=== PATIENT | female | born 1955 | race Caucasian/White ===

== ENCOUNTER 2018-09-11 11:06 | Emergency (ER) | payer BC ==
--- OUTSIDE RECORDS SUMMARY | 2018-09-11 11:08 | XMS REPORT ---
:1955 Author Organization eClinicalWorks Care Team Providers Name Role Phone Aleksey Storey Provider Role Unavailable Allergies No Known Allergies Problems Problem Type Condition Code Onset Dates Condition Status Problem Acquired hypothyroidism E03.9 Active Problem Other intermediate card tender (current) drug Z79.899 Active therapy Problem Chronic UTI N39.0 Active Problem Stress incontinence of urine N39.3 Active Problem Hypertension, unspecified type I10 Active Problem GERD without esophagitis K21.9 Active Problem Incontinence of urine in female R32 Active Medications Medication Code Code Instructions Start End Status Dosage System Date Date BuPROPion HCl [facility] [address]-25 200 MG Orally Active 1 tab Daily Pantoprazole [facility] 42930088768 40 MG Orally Active 1 tablet Sodium Once a day Levothyroxine [facility] 19667950491 75 MCG Orally Active 1 tablet Sodium Once a day on an empty stomach in the morning Amlodipine [facility] 02925135806 5 MG Orally Active 1 tablet Besylate Once a day Results No Known Results Summary Purpose eClinicalWorks Submission
--- OUTSIDE RECORDS SUMMARY | 2018-09-11 11:08 | XMS REPORT ---
:1955 Author Organization eClinicalWorks Care Team Providers Name Role Phone Alexia Oreilly Provider Role Unavailable Allergies, Adverse Reactions, Alerts Substance Reaction Event Type penicillin Info Not Available Drug Allergy penicillin Info Not Available Drug Allergy Problems Problem Type Condition Code Onset Dates Condition Status Assessment Urinary tract infection, site not N39.0 Active specified Assessment Recurrent UTI N39.0 Active Problem Acquired hypothyroidism E03.9 Active Problem Other senior living (current) drug Z79.899 Active therapy Problem Chronic UTI N39.0 Active Problem Stress incontinence of urine N39.3 Active Problem Hypertension, unspecified type I10 Active Problem GERD without esophagitis K21.9 Active Problem Incontinence of urine in female R32 Active Medications Medication Code Code Instructions Start End Status Dosage System Date Date Estrace [facility] 62034232698 0.1 MG/GM January 07, Active as Vaginal twice 2018 directed weekly Pantoprazole [facility] 21279583010 40 MG Orally Active 1 tablet Sodium Once a day BuPROPion HCl [facility] [address]-84 200 MG Orally Active not defined Valsartan-Hydroch [facility] 45164559444 320-12.5 MG Active 1 tablet lorothiazide Orally Once a day Nitrofurantoin [facility] 06470689138 100 mg Orally January Active 1 capsule Macrocrystal Once a day , with food 2017 2017 or milk Melatonin [facility] 11627806067 5 MG Orally Active 1 capsule Once a day at bedtime as needed with food Levothyroxine [facility] 41750628160 75 MCG Orally Active 1 tablet Sodium Once a day on an empty stomach in the morning Oxybutynin [facility] 43806308078 5 MG Orally Active 1 tablet Chloride Twice a day Amlodipine [facility] 49921773525 5 MG Orally Active 1 tablet Besylate Once a day Results Name Result Date Reference Range Unit Abnormality Flag URINALYSIS AUTO W/O SCOPE (51049) ----IVETT 1+ [id number] ----NIT neg [id number] ----PROTEIN neg [id number] ----pH 7.0 [id number] ----GLUCOSE neg [id number] ----KETONES neg [id number] ----SPECIFIC GRAVITY 1.015 [id number] ----BLO neg [id number] Summary Purpose eClinicalWorks Submission
--- OUTSIDE RECORDS SUMMARY | 2018-09-11 11:08 | XMS REPORT ---
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 Active therapy Problem Chronic UTI N39.0 Active Problem Stress incontinence of urine N39.3 Active Problem Hypertension, unspecified type I10 Active Problem GERD without esophagitis K21.9 Active Problem Incontinence of urine in female R32 Active Medications Medication Code Code Instructions Start End Status Dosage System Date Date Oxybutynin [facility] 83742193664 5 MG Orally Active 1 tablet Chloride Twice a day Melatonin [facility] 15795229896 5 MG Orally Active 1 capsule Once a day at bedtime as needed with food BuPROPion HCl [facility] [address]-98 200 MG Orally Active 1 tab Daily Amlodipine ND 17582242976 5 MG Orally Active 1 tablet Besylate Once a day Estrace ND 33039515247 0.1 MG/GM January 07, Active as Vaginal twice 2018 directed weekly Valsartan-Hydroch [facility] 62290647098 320-12.5 MG Mar Active 1 tablet lorothiazide Orally Once a , 2017 Levothyroxine [facility] 24990733042 75 MCG Orally Active 1 tablet Sodium Once a day on an empty stomach in the morning Nitrofurantoin [facility] 24118664065 100 mg Orally January Active 1 capsule Macrocrystal Once a day , , with food 2017 2017 or milk Pantoprazole ND 66303247156 40 MG Orally Active 1 tablet Sodium Once a day Losartan ND 06944335050 100-12.5 MG Apr 28, Active 1 tablet Potassium-HCTZ Orally Once a 2018 day Results No Known Results Summary Purpose eClinicalWorks Submission
--- OUTSIDE RECORDS SUMMARY | 2018-09-11 11:08 | XMS REPORT ---
:1955 Author Organization eClinicalWorks Care Team Providers Name Role Phone Aleksey Storey Provider Role Unavailable Allergies No Known Allergies Problems Problem Type Condition Code Onset Dates Condition Status Problem Acquired hypothyroidism E03.9 Active Problem Other half-way (current) drug Z79.899 Active therapy Problem Chronic UTI N39.0 Active Problem Stress incontinence of urine N39.3 Active Problem Hypertension, unspecified type I10 Active Problem GERD without esophagitis K21.9 Active Problem Incontinence of urine in female R32 Active Medications Medication Code Code Instructions Start End Date Status Dosage System Date Valsartan-Hydr [facility] 07861415290 320-12.5 MG Active 1 tablet ochlorothiazid Orally Once a e day Results No Known Results Summary Purpose eClinicalWorks Submission
--- OUTSIDE RECORDS SUMMARY | 2018-09-11 11:08 | XMS REPORT ---
:1955 Author Organization eClinicalWorks Care Team Providers Name Role Phone Alexia Oreilly Provider Role Unavailable Allergies, Adverse Reactions, Alerts Substance Reaction Event Type penicillin Info Not Available Drug Allergy penicillin Info Not Available Drug Allergy Problems Problem Type Condition Code Onset Dates Condition Status Assessment Recurrent UTI N39.0 Active Assessment Urinary tract infection, site not N39.0 Active specified Problem Acquired hypothyroidism E03.9 Active Problem Other [facility]pc (current) drug Z79.899 Active therapy Problem Chronic UTI N39.0 Active Problem Stress incontinence of urine N39.3 Active Problem Hypertension, unspecified type I10 Active Problem GERD without esophagitis K21.9 Active Problem Incontinence of urine in female R32 Active Medications Medication Code Code Instructions Start End Status Dosage System Date Date Levothyroxine [facility] 58025434607 75 MCG Orally Active 1 tablet Sodium Once a day on an empty stomach in the morning Amlodipine ND 97981617784 5 MG Orally Active 1 tablet Besylate Once a day Losartan [facility] 39856148815 100-12.5 MG Apr 28, Active 1 tablet Potassium-HCTZ Orally Once a 2018 day Estrace ND 91002899399 0.1 MG/GM January 07, Active as Vaginal twice 2018 directed weekly Melatonin [facility] 61118923175 5 MG Orally Active 1 capsule Once a day at bedtime as needed with food Pantoprazole [facility] 93530505128 40 MG Orally Active 1 tablet Sodium Once a day BuPROPion HCl [facility] [address]-84 200 MG Orally Active 1 tab Daily Nitrofurantoin ND 39937567708 100 mg Orally Active 1 capsule Macrocrystal Once a day with food or milk Oxybutynin ND 97724351931 5 MG Orally Active 1 tablet Chloride Twice a day Results Name Result Date Reference Range Unit Abnormality Flag URINALYSIS AUTO W/O SCOPE (69090) ----NIT neg [id number] ----URO 0.2 20180506 ----PROTEIN neg [id number] ----pH 6.5 20180506 ----BLO neg [id number] ----GLUCOSE neg [id number] ----IVETT 1+ [id number] ----BILIRUBIN neg [id number] ----KETONES tr [id number] ----SPECIFIC GRAVITY 1.020 [id number] Summary Purpose eClinicalWorks Submission
--- OUTSIDE RECORDS SUMMARY | 2018-09-11 11:09 | XMS REPORT ---
[...] Problem Acquired hypothyroidism E03.9 Active Problem Other [facility] (current) drug Z79.899 Active therapy Problem Chronic UTI N39.0 Active Problem Stress incontinence of urine N39.3 Active Problem Hypertension, unspecified type I10 Active Problem GERD without esophagitis K21.9 Active Problem Incontinence of urine in female R32 Active Medications Medication Code Code Instructions Start End Status Dosage System Date Date Losartan [facility] 86365083303 100-12.5 MG Active 1 tablet Potassium-HCTZ Orally Once a day Melatonin [facility] 80962122248 5 MG Orally Active 1 capsule Once a day at bedtime as needed with food Estrace [facility] 56013145828 0.1 MG/GM January 07, Active as Vaginal twice 2018 directed weekly Amlodipine [facility] 74022205334 5 MG Orally Active 1 tablet Besylate Once a day Nitrofurantoin [facility] 23552715132 100 mg Orally Active 1 capsule Macrocrystal Once a day with food or milk BuPROPion HCl [facility] [address]-38 200 MG Orally Active 1 tab Daily Pantoprazole [facility] 69487627963 40 MG Orally Active 1 tablet Sodium Once a day Levothyroxine [facility] 27184184187 75 MCG Orally Active 1 tablet Sodium Once a day on an empty stomach in the morning Oxybutynin [facility] 10296066828 5 MG Orally Active 1 tablet Chloride Twice a day Results No Known Results Summary Purpose eClinicalWorks Submission
--- OUTSIDE RECORDS SUMMARY | 2018-09-11 11:09 | XMS REPORT ---
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 Active therapy Problem Acquired hypothyroidism E03.9 Active Problem Other group home (current) drug Z79.899 Active therapy Problem Chronic UTI N39.0 Active Problem Stress incontinence of urine N39.3 Active Problem Hypertension, unspecified type I10 Active Problem GERD without esophagitis K21.9 Active Problem Incontinence of urine in female R32 Active Medications Medication Code Code Instructions Start End Status Dosage System Date Date Melatonin [facility] 67639792710 5 MG Orally Active 1 capsule Once a day at bedtime as needed with food Amlodipine ND 94191780652 5 MG Orally Active 1 tablet Besylate Once a day Pantoprazole [facility] 41475390148 40 MG Orally Active 1 tablet Sodium Once a day Oxybutynin [facility] 23013124292 5 MG Orally Active 1 tablet Chloride Twice a day Estrace ND 52821802689 0.1 MG/GM January 07, Active as Vaginal twice 2018 directed weekly Losartan [facility] 92459329458 100-12.5 MG Apr 28, Active 1 tablet Potassium-HCTZ Orally Once a 2018 day Nitrofurantoin [facility] 45008345800 100 mg Orally Active 1 capsule Macrocrystal Once a day with food or milk BuPROPion HCl [facility] [address]-74 200 MG Orally Active 1 tab Daily Levothyroxine ND 98672502132 75 MCG Orally Active 1 tablet Sodium Once a day on an empty stomach in the morning Results No Known Results Summary Purpose eClinicalWorks Submission
--- NOTE | 2018-09-11 12:15 | RAD REPORT ---
EXAM DESCRIPTION: US - Abdomen Exam Limited - 09/11/2018 12:01 pm CLINICAL HISTORY: ABD PAIN COMPARISON: ABDOMINAL EXAM LIMITED dated 01/25/2015 FINDINGS: The gallbladder demonstrates no gallstones. No pericholecystic fluid or gallbladder wall t hickening. The common bile duct is mildly prominent measuring 8 mm. The liver demonstrates focal round mass measuring 6.7 x 5.1 cm in the right lobe. Grossly, this appea rs similar in size to the comparative study. However, further assessment of this lesion with MR liver protocol would be recommended on a nonemergent basis. IMPRESSION: Negative gallbladder findings. Circumscribed echogenic right lobe liver mass shows little change grossly since 2014 comparative stud y.
[2018-09-11 13:21] LABS: Absolute Monocytes 0.7 K/uL (0.1-1.3); Absolute Neutrophil 5.5 K/uL (1.8-8.0); Basophils % 1.4 % (0-1.3); Eosinophils % 3.2 % (0-4.4); Hematocrit 38.8 % (36.0-45.0); Lymphocytes % 23.2 % (15.3-44.8); Monocytes % 8.1 % (3.3-12.3); RBC Red Blood Cell Count 4.61 M/uL (3.86-4.86)
[2018-09-11 13:37] LABS: Albumin 4.4 g/dL (3.4-5.0); Bilirubin Direct 0.1 mg/dL (0-0.2); Bilirubin Total 0.5 mg/dL (0.2-1.0); Potassium 3.6 mmol/L (3.5-5.1); Protein, Total 7.9 g/dL (6.4-8.2)
[2018-09-11] MEDS ORDERED: KETOROLAC 30 MG/ML INJ ONE (14:03)
--- NOTE | 2018-09-11 14:18 | EDPHYS ---
Physician Documentation [facility] Name: Dary Michaud Age: 63 yrs Sex: Female : 1955 Arrival Date: 09/11/2018 Time: 11:10 Bed 18 Private MD: Aleksey Storey ED Physician Juvenal Hough HPI: 09/11 14:10 This 63 yrs old Female presents to ER via Ambulatory with complaints of Abd kb Pain > 50 y/o, Nausea. 14:10 The patient presents with abdominal pain in the epigastric area, in the right upper kb quadrant. 14:15 Onset: The symptoms/episode began/occurred a few weeks ago. The symptoms do not kb radiate. Associated signs and symptoms: Pertinent positives: nausea and vomiting. The symptoms are described as achy. Modifying factors: The symptoms are alleviated by nothing, the symptoms are aggravated by nothing. Severity of pain: At its worst the pain was mild moderate in the emergency department the pain is unchanged. The patient has not experienced similar symptoms in the past. The patient has not recently seen a physician. Historical: - Allergies: 11:32 PENICILLINS; aj1 - Home Meds: 11:32 losartan-hydrochlorothiazide 100-12.5 mg oral tab once daily [Active]; levothyroxine aj1 oral [Active]; amlodipine 5 mg tab 1 tab once daily [Active]; pantoprazole oral oral [Active]; - PMHx: 11:32 Hypertension; Hypothyroidism; GERD; aj1 - Immunization history:: Flu vaccine is up to date. - Social history:: Smoking status: Patient/guardian denies using tobacco. - Ebola Screening: : Patient denies travel to an Ebola-affected area in the 21 days before illness onset. ROS: 14:09 Constitutional: Negative for fever, chills, and weight loss, Cardiovascular: Negative kb for chest pain, palpitations, and edema, Respiratory: Negative for shortness of breath, cough, wheezing, and pleuritic chest pain, Back: Negative for injury and pain, MS/Extremity: Negative for injury and deformity, Skin: Negative for injury, rash, and discoloration, Neuro: Negative for headache, weakness, numbness, tingling, and seizure. 14:09 Abdomen/GI: Positive for abdominal pain, nausea and vomiting, Negative for diarrhea, constipation, abdominal cramps, abdominal distension, anorexia. Exam: 14:14 Constitutional: This is a well developed, well nourished patient who is awake, alert, kb and in no acute distress. Head/Face: Normocephalic, atraumatic. ENT: Nares patent. No nasal discharge, no septal abnormalities noted. Tympanic membranes are normal and external auditory canals are clear. Oropharynx with no redness, swelling, or masses, exudates, or evidence of obstruction, uvula midline. Mucous membranes moist. Neck: Trachea midline, no thyromegaly or masses palpated, and no cervical lymphadenopathy. Supple, full range of motion without nuchal rigidity, or vertebral point tenderness. No Meningismus. Chest/axilla: Normal chest wall appearance and motion. Nontender with no deformity. No lesions are appreciated. Cardiovascular: Regular rate and rhythm with a normal S1 and S2. No gallops, murmurs, or rubs. Normal PMI, no JVD. No pulse deficits. Respiratory: Lungs have equal breath sounds bilaterally, clear to auscultation and percussion. No rales, rhonchi or wheezes noted. No increased work of breathing, no retractions or nasal flaring. Skin: Warm, dry with normal turgor. Normal color with no rashes, no lesions, and no evidence of cellulitis. MS/ Extremity: Pulses equal, no cyanosis. Neurovascular intact. Full, normal range of motion. Neuro: Awake and alert, GCS 15, oriented to person, place, time, and situation. Cranial nerves II-XII grossly intact. Motor strength 5/5 in all extremities. Sensory grossly intact. Cerebellar exam normal. Normal gait. 14:14 Abdomen/GI: Inspection: abdomen appears normal, Bowel sounds: normal, in all quadrants, Palpation: soft, in all quadrants, moderate abdominal tenderness, in the right upper quadrant. Vital Signs: 11:32 BP 152 / 96; Pulse 71; Resp 18; Temp 98.0; Pulse Ox 99% on R/A; Weight 75.75 kg (R); aj1 Height 5 ft. 10 in. (177.80 cm) (R); Pain 10/10; 13:35 BP 161 / 94; Pulse 61; Resp 18; Pulse Ox 99% on R/A; Pain 9/10; em 14:30 BP 166 / 91; Pulse 64; Resp 16; Pulse Ox 99% on R/A; Pain 3/10; em 11:32 Body Mass Index 23.96 (75.75 kg, 177.80 cm) aj1 MDM: 12:29 Patient medically screened. kb 14:10 Data reviewed: vital signs, nurses notes. Data interpreted: Pulse oximetry: on room air kb is 99 %. Interpretation: normal. 14:14 Counseling: I had a detailed discussion with the patient and/or guardian regarding: the kb historical points, exam findings, and any diagnostic results supporting the discharge/admit diagnosis, lab results, radiology results, the need for outpatient follow up, a manager mass, to return to the emergency department if symptoms worsen or persist or if there are any questions or concerns that arise at home. 09/11 12:33 Order name: Basic Metabolic Panel; Complete Time: 13:48 kb 09/11 12:33 Order name: CBC with Diff; Complete Time: 13:26 kb 09/11 12:33 Order name: Hepatic Function; Complete Time: 13:48 kb 09/11 12:33 Order name: Lipase; Complete Time: 13:48 kb 09/11 12:33 Order name: Urine Microscopic Only; Complete Time: 15:17 kb 09/11 13:53 Order name: Urine Dipstick--Ancillary (enter results) bd 09/11 11:39 Order name: US Abdomen Limited; Complete Time: 12:18 kb 09/11 12:33 Order name: IV Saline Lock; Complete Time: 13:16 kb 09/11 12:33 Order name: Labs collected and sent; Complete Time: 13:16 kb 09/11 12:33 Order name: Urine Dipstick-Ancillary (obtain specimen); Complete Time: 13:52 kb Administered Medications: 14:00 Drug: TORadol 30 mg Route: IVP; Site: left antecubital; ss 14:25 Follow up: Response: No adverse reaction; Pain is decreased em 14:28 Drug: GI Cocktail without - (Maalox Suspension 30 ml, Lidocaine Liquid 2 % 15 em ml) Route: PO; 14:34 Follow up: Response: Medication administered at discharge. em Disposition: 09/11/18 14:17 Discharged to Home. Impression: Upper abdominal pain, unspecified. - Condition is Stable. - Discharge Instructions: Gastroesophageal Reflux Disease, Adult, Abdominal Pain, Adult, [id number]. - Prescriptions for Bentyl 20 mg Oral Tablet - take 1 tablet by ORAL route every 6 hours As needed; 20 tablet. Zofran 4 mg Oral Tablet - take 1 tablet by ORAL route every 6 hours As needed; 20 tablet. - Medication Reconciliation Form, Thank You Letter, Antibiotic Education, Prescription Opioid Use form. - Follow up: Emergency Department; When: As needed; Reason: Worsening of condition. Follow up: Private Physician; When: 2 - 3 days; Reason: Recheck today's complaints, Continuance of care, Re-evaluation by your physician. Addendum: 09/13/2018 10:25 Co-signature as Attending Physician, Juvenal Hough MD. g s Signatures: Dispatcher [employer] EDMS Kimberly Pennington, BOXING INSTRUCTOR-C BOXING INSTRUCTOR-Ckb Mary Carmen Skinner, RN RN aj1 Get Portillo, PRESS SHOP SUPERVISOR PRESS SHOP SUPERVISOR em Estee Gilmore RN RN ss Starr, Gregory, MD MD Corrections: (The following items were deleted from the chart) 09/11 14:55 14:17 09/11/2018 14:17 Discharged to Home. Impression: Upper abdominal pain, em unspecified. Condition is Stable. Forms are Medication Reconciliation Form, Thank You Letter, Antibiotic Education, Prescription Opioid Use. Follow up: Emergency Department; When: As needed; Reason: Worsening of condition. Follow up: Private Physician; When: 2 - 3 days; Reason: Recheck today's complaints, Continuance of care, Re-evaluation by your physician. kb
--- NOTE | 2018-09-11 14:18 | ER ---
Nurse's Notes [facility] Name: Dayr Michaud Age: 63 yrs Sex: Female : 1955 Arrival Date: 09/11/2018 Time: 11:10 Bed 18 Private MD: Aleksey Storey Diagnosis: Upper abdominal pain, unspecified Presentation: 09/11 11:29 Presenting complaint: Patient states: "I've been having this pain on and off, now its aj1 gotten worse and I'm feeling nauseated" Reports epigastric pain that becomes severe after eating. Reports nausea and diarrhea. Denies vomiting. Transition of care: patient was not received from another setting of care. Onset of symptoms was August 30, 2018. Risk Assessment: Do you want to hurt yourself or someone else? Patient reports no desire to harm self or others. Initial Sepsis Screen: Does the patient meet any 2 criteria? No. Patient's initial sepsis screen is negative. Does the patient have a suspected source of infection? Yes: Acute abdominal pain. Care prior to arrival: None. 11:29 Method Of Arrival: Ambulatory aj1 11:29 Acuity: BLANCA 3 aj1 Triage Assessment: 11:32 General: Appears in no apparent distress. uncomfortable, Behavior is calm, cooperative, aj1 appropriate for age. Pain: Complains of pain in epigastric area Pain currently is 10 out of 10 on a pain scale. Neuro: Level of Consciousness is awake, alert, obeys commands. Cardiovascular: Patient's skin is warm and dry. Respiratory: Airway is patent Respiratory effort is even, unlabored, Respiratory pattern is regular, symmetrical. GI: Reports upper abdominal pain, diarrhea, nausea, Patient currently denies vomiting. Historical: - Allergies: 11:32 PENICILLINS; aj1 - Home Meds: 11:32 losartan-hydrochlorothiazide 100-12.5 mg oral tab once daily [Active]; levothyroxine aj1 oral [Active]; amlodipine 5 mg tab 1 tab once daily [Active]; pantoprazole oral oral [Active]; - PMHx: 11:32 Hypertension; Hypothyroidism; GERD; aj1 - Immunization history:: Flu vaccine is up to date. - Social history:: Smoking status: Patient/guardian denies using tobacco. - Ebola Screening: : Patient denies travel to an Ebola-affected area in the 21 days before illness onset. Screenin:00 Abuse screen: Denies threats or abuse. Denies injuries from another. Nutritional ss screening: No deficits noted. Tuberculosis screening: No symptoms or risk factors identified. Never had TB. Fall Risk None identified. Assessment: 13:00 General: Appears in no apparent distress. comfortable, Behavior is calm, cooperative. ss Pain: Complains of pain in right upper quadrant and epigastric area Pain currently is 7 out of 10 on a pain scale. at worst was 9 out of 10 on a pain scale. Pain began "weeks ago" Is intermittent. Neuro: Level of Consciousness is awake, alert, obeys commands, Oriented to person, place, time, situation. Cardiovascular: Capillary refill < 3 seconds is brisk in bilateral fingers Patient's skin is warm and dry. Respiratory: Airway is patent Respiratory effort is even, unlabored, Respiratory pattern is regular, symmetrical. GI: Abdomen is non-distended, Bowel sounds present X 4 quads. Abd is soft and non tender Reports intermittent nausea. : Reports urinary frequency. EENT: Nares are clear Oral mucosa is moist. Throat is clear. Derm: Skin is pink, warm \\T\\ dry. normal. Musculoskeletal: Circulation, motion, and sensation intact. Range of motion: intact in all extremities, Swelling absent. 14:30 Reassessment: Patient appears in no apparent distress at this time. Patient and/or em family updated on plan of care and expected duration. Pain level reassessed. Patient is alert, oriented x 3, equal unlabored respirations, skin warm/dry/pink. Patient states feeling better. Vital Signs: 11:32 BP 152 / 96; Pulse 71; Resp 18; Temp 98.0; Pulse Ox 99% on R/A; Weight 75.75 kg (R); aj1 Height 5 ft. 10 in. (177.80 cm) (R); Pain 10/10; 13:35 BP 161 / 94; Pulse 61; Resp 18; Pulse Ox 99% on R/A; Pain 9/10; em 14:30 BP 166 / 91; Pulse 64; Resp 16; Pulse Ox 99% on R/A; Pain 3/10; em 11:32 Body Mass Index 23.96 (75.75 kg, 177.80 cm) aj1 ED Course: 11:10 Patient arrived in ED. sb2 11:10 Aleksey Storey DO is Private Physician. sb2 11:31 Triage completed. aj1 11:32 Arm band placed on Patient placed in waiting room, Patient notified of wait time. aj1 11:39 Kimber[facility] Pennington [facility]-C [facility] kb 11:39 Juvenal Hough MD is Attending Physician. kb 12:01 Ultrasound completed. Patient tolerated well. sg3 12:02 US Abdomen Limited In Process Unspecified. EDMS 12:55 Get Portillo LVN is Primary Nurse. em 13:00 Patient has correct armband on for positive identification. Bed in low position. ss 13:16 Initial lab(s) drawn, by me, sent to lab. Inserted saline lock: 20 gauge in left em1 antecubital area, using aseptic technique. Blood collected. 14:54 No provider procedures requiring assistance completed. IV discontinued, intact, em bleeding controlled, No redness/swelling at site. Pressure dressing applied. Administered Medications: 14:00 Drug: TORadol 30 mg Route: IVP; Site: left antecubital; ss 14:25 Follow up: Response: No adverse reaction; Pain is decreased em 14:28 Drug: GI Cocktail without - (Maalox Suspension 30 ml, Lidocaine Liquid 2 % 15 em ml) Route: PO; 14:34 Follow up: Response: Medication administered at discharge. em Outcome: 14:17 Discharge ordered by . kb 14:54 Discharged to home ambulatory. em 14:54 Condition: good 14:54 Discharge instructions given to patient, Instructed on discharge instructions, follow up and referral plans. medication usage, Demonstrated understanding of instructions, follow-up care, medications, Prescriptions given X 2. 14:55 Patient left the ED. em Signatures: Dispatcher [employer] EDVT Kimberly Pennington FNP-C FNP-Ckb Johnson, Angela RN RN aj1 Get Portillo LVN LVN em Elder Bedoya em1 Estee Gilmore, ANGEL RN Tatiana Hall 3 Jayne Lowe sb2
[2018-09-11] MEDS ORDERED: LIDOCAINE VISCOUS 2% SOLN 15 ML UDC ONE (14:26)
[2018-09-11] MEDS ORDERED: MAGNE/ALUM HYDROXD 30 ML UCUP ONE (14:26)
[2018-09-11 14:37] LABS: Urine Bacteria <20 /HPF (<20); Urine Culture Reflex Order NOT NEEDED; Urine RBC NONE SEEN /HPF (NONE SEEN)
[2018-09-11 17:46] LABS: Urine Blood NEGATIVE (NEG); Urine Glucose NEGATIVE (NEG); Urine Protein NEGATIVE (NEG)
== END 2018-09-11 14:55 | disposition home or self-care (01) ==
LOC: ER 11:06
DX: R10.10 Upper abdominal pain, unspecified (principal); I10 Essential (primary) hypertension; E03.9 Hypothyroidism, unspecified; K21.9 Gastro-esophageal reflux disease without esophagitis; Z88.0 Allergy status to penicillin
CPT/HCPCS: 36415; 76705; 80048; 80076; 81003; 81015; 83690; 85025; 96374; 99284

== ENCOUNTER 2020-08-21 19:49 | Emergency (ER) | payer BC, OTHER ==
--- OUTSIDE RECORDS SUMMARY | 2020-08-21 19:52 | XMS REPORT | Summary of Care ---
:1955 Author Organization [facility] - Health Address [address] [place] [address] Care Team Providers Name Role Phone Elvira Storey Primary Care Provider Encounter Details Date Type Department Care Team Description 08/13/2020 Orders Only [facility] Doctor Unassigned, No [address] [facility] [place] [address] [address] [place] [address] Allergies Active Allergy Reactions Severity Noted Date Comments Penicillins Unknown - See comments 11/23/2018 documented as of this encounter (statuses as of 08/14/2020) Medications Not on filedocumented as of this encounter (statuses as of 08/14/2020) Active Problems Not on filedocumented as of this encounter (statuses as of 08/14/2020) Social History Tobacco Use Types Packs/Day Years Used Date Never Assessed Sex Assigned at Date Recorded Not on file COVID-19 Exposure Response Date Recorded In the last month, have you been in contact with No / Unsure 08/13/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 documented as of this encounter Last Filed Vital Signs Not on filedocumented in this encounter Plan of Treatment Health Maintenance Due Date Last Done Comments HEPATITIS C (HCV) SCREEN 1955 Depression Screening 1967 DTaP,Tdap,and Td Vaccines (1 - Tdap) 1974 COLON CANCER SCREENING ANNUAL FIT/FOBT 2005 COLON CANCER SCREENING FIT DNA EVERY 3 YEARS 2005 COLON CANCER SCREENING SIGMOIDOSCOPY EVERY 5 YEARS 2005 COLONOSCOPY 2005 Colorectal Cancer Screening 2005 Zoster Recombinant Vaccine (SHINGRIX) (1 of 2) 2005 Breast Cancer Screening (MAMMOGRAM) 03/23/2017 03/23/2016 Medicare Wellness Visit 02/05/2020 Osteoporosis Screening 02/05/2020 PNEUMOCOCCAL VACCINES 65+ (1 of 1 - PPSV23) 02/05/2020 INFLUENZA VACCINE (#1) 2020 07/05/2019 documented as of this encounter Procedures Procedure Name Priority Date/Time Associated Diagnosis Comme nts PHYSICIAN ORDERS Routine 08/13/2020 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
--- OUTSIDE RECORDS SUMMARY | 2020-08-21 19:52 | XMS REPORT | Summary of Care ---
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 [facility] Vinny Jacobs MD [id number] [place] [address] Constipation, unspecified constipation t ype (Primary Dx); Professional Office 2, Adc Lab Liver regeneration; Building Phlebotomy Chronic kidney disease, stage II (mild) Lab Professional Office Building [address] [facility] , [address] [place] [address] Allergies Active Allergy Reactions Severity Noted Date Comments Penicillins Unknown - See comments 11/23/2018 documented as of this encounter (statuses as of 08/13/2020) Medications Not on filedocumented as of this encounter (statuses as of 08/13/2020) Active Problems Not on filedocumented as of this encounter (statuses as of 08/13/2020) Social History Tobacco Use Types Packs/Day Years Used Date Never Assessed Sex Assigned at Date Recorded Not on file COVID-19 Exposure Response Date Recorded In the last month, have you been in contact with No / Unsure 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 documented as of this encounter Last Filed Vital Signs Not on filedocumented in this encounter Nursing Notes Rosamaria Duarte - 08/13/2020 2:30 PM CST Venipuncture collection performed by clean technique on the left anticubitus. Total of 1 attempts were made. Slight pressure and a bandage/dressing were applied to the site(s). The patient experienced no complications. The following specimens were processed according to instructions and sent to [facility] laboratories per lab order on 08/13/20: LT BLUE SST 1 RED LAV 1 PPT DK GREEN (LiHep) DK GREEN (SodH) DODGE DK BLUE (K2) DK BLUE (S) ACD Blood Culture NIPT/NTD documented in this encounter Plan of Treatment Name Type Priority Associated Diagnoses Order S chedule CBC WITH DIFF LAB Routine Constipation, unspecified E xpected: 08/13/2020, constipation typ e Expires: 08/13/2021 Liver regenerati on Chronic kidney disease, stage II (mild) HEPATIC FUNCTION PANEL LAB Routine Constipation, unsp ecified Expected: 08/13/2020, ([id number]) (ALB,T.PRO,BILI constipa tion type Expires: 08/13/2021 T,BU/BC,ALT,AST,ALK Liver regene ration PHOS) Chronic kidney disease, stage II (mild) AMYLASE LAB Routine Constipation, unspecified Ex pected: 08/13/2020, constipation typ e Expires: 08/13/2021 Liver regenerati on Chronic kidney disease, stage II (mild) LIPASE LAB Routine Constipation, unspecified Ex pected: 08/13/2020, constipation typ e Expires: 08/13/2021 Liver regenerati on Chronic kidney disease, stage II (mild) BASIC METABOLIC PANEL LAB Routine Constipation, unspe cified Expected: 08/13/2020, (NA, K, CL, CO2, constipation ty pe Expires: 08/13/2021 GLUCOSE, BUN, Liver regenerati on CREATININE, CA) Chronic kidney disease, stage II (mild) Health Maintenance Due Date Last Done Comments [...] - PPSV23) 02/05/2020 INFLUENZA VACCINE (#1) 2020 documented as of this encounter Results Not on filedocumented in this encounter Visit Diagnoses Diagnosis Constipation, unspecified constipation t ype - Primary Liver regeneration Other specified disorders of liver Chronic kidney disease, stage II (mild) Chronic kidney disease, Stage II (mild) documented in this encounter Insurance Payer Benefit Plan / Subscriber ID Effective Phone Address T ype Group Dates BCBS OF HIM BCBS BLUE [id number] 2015-[place] [phone] [facility] HMO nt 87 [id number] [place] [address] CIGNA CIGNA II [id number] 2018-[facility] HMO/P PO/P nt OS documented as of this encounter
--- OUTSIDE RECORDS SUMMARY | 2020-08-21 19:52 | XMS REPORT | Continuity of Care Document ---
:1955 Author Organization [facility] t Address [address] [place] [address] Care Team Providers Name Role Phone 2, Lab Attending Clinician Unavailable Doctor Unassigned, Name Attending Clinician Unavailable Payers Payer Name Policy Type Policy Number Effective Date Expiration Date S ource Problems Condition Condition Condition Status Onset Resolution Last Treating Co mments Source Name Details Category Date Date Treatment Clinician Date Acquired Acquired Problem [facility] hyp[facility]ro[facility] hypothyroi Lnyda kes - dism dism Memoria l [facility] Other long Other long Problem Active [facility] term term [facility] - (current) (current) Eleazar patricia drug drug l therapy therapy [facility] Chronic Chronic Problem Active [facility] UTI UTI [facility] - Memoria l [facility] Stress Stress Problem Active [facility] incontinen incontinen Lynda kes - ce of ce of Memoria urine urine l [facility] Hypertensi Hypertensi Problem Active [facility] on, on, [facility] - unspecifie unspecifie Me moria d type d type l [facility] GERD GERD Problem Active [facility] without without [facility] - esophagiti esophagiti Me moria s s l [facility] Incontinen Incontinen Problem Active [facility] ce of ce of [facility] - urine in urine in Memori a female female l [facility] Chronic Chronic Problem Active [facility] kidney kidney [facility] - disease, disease, Memori a stage 2 stage 2 l (mild) (mild) [facility] Liver mass Liver mass Problem [facility] Hyperchole Hyperchole Problem Active [facility] sterolemia sterolemia [facility] Nodular Nodular Problem Active [facility] hyperplasi hyperplasi Lynda kes - a of liver a of liver Me moria l [facility] Primary Primary Problem Active [facility] osteoarthr osteoarthr Lynda kes - [facility] knee left knee l [facility] Allergies, Adverse Reactions, Alerts Allergy Allergy Status Severity Reaction(s) Onset Inactive Treating Comm ents Source Name Type Date Date Clinician Penicill DA Active U 2020-0 [facility] 10[facility]17 [place] 00:[facility]: [facility] [place] 20200 [facility] 09-25 [place] 00:[facility]: [facility]ope 00 dic Hosp[facility] nickel DA Active MO 0 [facility] 09-25 [place] 00:[facility]: Orthope 00 dic H[facility] penicill Adverse Active Info Not [facility] in Reaction Available [facility] Medications Ordered Filled Start Stop Current Ordering Indication Dosage Frequency Signature Comments Components Source Medication Medication Date Date Medication? Clinician (SIG) Name Name Salvador Franco Yes Aleksey as [facility] directed [facility] - 00:00: Memoria 00 [facility]ics Bactrim DS Bactrim DS Yes Aleksey [address] [facility] 5-11 Storey [facility] - 00:00: Memoria 00 [facility]ics Levothyroxi Levothyroxi Yes Aleksey [address] ne Sodium ne Sodium Storey on an [facility] - empty [facility] stomach [facility] Nitrofurant Nitrofurant Yes Aleksey [address] oin oin Storey with food [facility] - Macrocrysta Macrocrysta or milk [facility] l l [facility] Pyridium Pyridium Yes Aleksey [address] Storey after [facility] - meals [facility] Glucosamine Glucosamine Yes Aleksey as [facility] Chondro Chondro Storey directed L ukes - Complex Complex [facility] Amlodipine Amlodipine Yes Aleksey [address] Besylate Besylate Storey Alana es - [facility] Clinics Pantoprazol Pantoprazol Yes Aleksey TAKE [address] [facility] [facility] e Sodium e Sodium Storey TABLET BY [facility] - MOUTH ONCE Memoria DAILY l [facility] Oxybutynin Oxybutynin Yes Aleksey [address] Chloride Chloride Storey Alana es - Memoria l [facility]ics Losartan Losartan Yes Aleksey TAKE [address] Potassium-H Potassium-H Storey TABLET BY [facility] - CTZ CTZ MOUTH ONCE Memoria DAILY l [facility] Melatonin Melatonin Yes Aleksey [address] Storey at bedtime [facility] - as needed Memoria with food l [facility] BuPROPion BuPROPion Yes Aleksey [address] HCl HCl [facility] Pantoprazol Pantoprazol Yes Aleksey [address] e Sodium e Sodium Storey Alana es - Memoria l [facility] Procedures This patient has no known procedures. Encounters Start End Encounter Admission Attending Care Care Encounter Source Date/Time Date/Time Type Type Clinicians Facility Department ID 2020-08-13 2020-08-[address] Justice 2, [facility] [place] [id number] 14:41:43 14:56:43 Visit Cricket [id number] [place] [id number] Severiano [id number] [address] 2020-08-13 2020-08-13 Orders Doctor CALEB [id number] 00:00:00 00:00:00 Only Unassigned, RU [id number] Bouse [facility] [id number] 2019-06-05 2019-06-05 [facility] [id number] 13:19:00 13:19:00 t Jimena [facility] Medicine [facility] 2019-05-29 2019-05-29 [facility] [id number] 16:20:00 16:20:00 [facility] 2018-12-12 2018-12-12 [facility] [id number] 09:52:00 09:52:00 t Jimena Ling [facility] Outpati ent Clinics 2018-11-24 2018-11-24 [facility] [id number] 08:20:00 08:20:00 t Jimena Ling [facility] Medicine Outpati ent Clinics 2018-11-04 2018-11-04 [facility] [id number] 11:30:00 11:30:00 t Specialty/U Lynda kes - Specialty rology Memori a /Urology Clinic l Clinic Outpati ent Clinics 2018-10-11 2018-10-11 [facility] [id number] 10:30:00 10:30:00 t Specialty/U Lynda kes - Specialty rology Memori a /Urology Clinic l Clinic Outpati ent Clinics 2018-10-10 2018-10-10 [facility] [id number] 12:57:00 12:57:00 t Specialty/U Lynda kes - Specialty rology Memori a /Urology Clinic l Clinic Outpati ent Clinics 2018-10-03 2018-10-03 [facility] [id number] 10:32:00 10:32:00 t [facility] Medicine Outpati ent Clinics 2018-09-15 2018-09-15 [facility] [id number] 09:00:00 09:00:00 t Specialty/U Lynda kes - Specialty rology Memori a /Urology Clinic l Clinic Outpati ent Clinics 2018-09-05 2018-09-05 [facility] [id number] 14:40:00 14:40:00 t Jimena Ling [facility] Medicine Outpati ent Clinics 2018-09-02 2018-09-02 [facility] [id number] 09:15:00 09:15:00 t [facility] 2018-08-05 2018-08-05 [facility] [id number] 11:30:00 11:30:00 t Specialty/U Lynda kes - Specialty rology Memori a /Urology Clinic l Clinic Outpati ent Clinics 2018-05-27 2018-05-27 [facility] [id number] 09:00:00 09:00:00 t [facility] Outpati ent Clinics 2018-05-06 2018-05-06 [facility] [id number] 11:00:00 11:00:00 t Specialty/U Lynda kes - Specialty rology Memori a /Urology Clinic l Clinic Outpati ent Clinics 2018-04-28 2018-04-28 [facility] [id number] 12:40:00 12:40:00 t [facility] Outpati ent Clinics 2018-04-12 2018-04-12 [facility] [id number] 15:07:00 15:07:00 t [facility] 2018 2018 [facility] [id number] 11:30:00 11:30:00 t Specialty[facility]U Lynda [facility] 2018-01-25 2018-01-25 [facility] [id number] 09:38:00 09:38:00 t [facility] Results Test Description Test Time Test Comments Results Result Comments Source BASIC METABOLIC PANEL 2019-09-29 06:24:00 Test Item Value Reference Range Interpretation Comme nts SODIUM (test code = NA) 133 mmol/L 136-145 L POTASSIUM (test code = K) 5.2 mmol/L 3.5-5.1 H CHLORIDE (test code = CL) 98.0 mmol/L 98-107 N CARBON DIOXIDE (test code = CO2) 27.9 mmol/L 21-32 N GLUCOSE (test code = GLU) 82 mg/dL 70-110 N BLOOD UREA NITROGEN (test code = 14 mg/dL 7-18 N BUN) GLOMERULAR FILTRATION RATE (test 68.3 >60 Unit of measure: code = GFR) mL/min/1.73 m2R eference Range:Healthy A dults >90 mL/min/1.73 m2 For Chronic Kidney Disease: Stage II Mi ld Decrease in GFR 60-9 0 Stage III Moderate Decrease in GFR 30-59 Stage IV Severe Decrease in GFR 15-29 Stage V Kidney Failure <15 CREATININE (test code = CREAT) 0.84 mg/dL 0.55-1.30 N CALCIUM (test code = CA) 8.7 mg/dL 8.2-10.1 N CBC W/AUTO [id number] 05:57:00 Test Item Value Reference Range Interpretation Comments WHITE BLOOD CELL (test code = WBC) 11.3 K/mm3 5.8-11.0 H RED BLOOD CELL (test code = RBC) 4.13 M/mm3 4.2-5.4 L HEMOGLOBIN (test code = HGB) 11.3 g/dL 12-16 L HEMATOCRIT (test code = HCT) 34.4 % 37-47 L MEAN CELL VOLUME (test code = MCV) 83 fL 80-98 N MEAN CELL HGB (test code = MCH) 27.4 pg 27-34 N MEAN CELL HGB CONCENTRATION (test 32.8 g/dL 30.8-34.1 N code = MCHC) RED CELL DISTRIBUTION WIDTH (test 14.1 % 11-16 N code = RDW) PLT (test code = PLT) 205 K/mm3 130-400 N MEAN PLATELET VOLUME (test code = 11.3 fL 8.9-12.1 N MPV) NEUTROPHIL % (test code = NT%) 77.0 % 45-70 H LYMPHOCYTE % (test code = LY%) 13.6 % 20-40 L MONOCYTE % (test code = MO%) 8.0 % 3-10 N EOSINOPHIL % (test code = EO%) 0.6 % 1-5 L BASOPHIL % (test code = BA%) 0.5 % 0.0-1.1 N NEUTROPHIL # (test code = NT#) 8.72 K/mm3 2.00-7.50 H LYMPHOCYTE # (test code = LY#) 1.54 K/mm3 1.50-4.00 N MONOCYTE # (test code = MO#) 0.91 K/mm3 0.2-0.8 H EOSINOPHIL # (test code = EO#) 0.07 K/mm3 0.04-0.4 N BASOPHIL # (test code = BA#) 0.06 K/mm3 0.02-0.10 N MANUAL DIFF REQUIRED (test code = NO MANUAL DIFF MDIFF) NUCLEATED RED BLOOD CELL (test 0 % 0-0 N code = NRBC) BASIC METABOLIC [id number] 15:26:00 Test Item Value Reference Range Interpretation Comments SODIUM (test code = 133 mmol/L 136-145 L NA) POTASSIUM (test code = 4.0 mmol/L 3.5-5.1 N K) CHLORIDE (test code = 95.0 mmol/L 98-107 L CL) CARBON DIOXIDE (test 26.8 mmol/L 21-32 N code = CO2) GLUCOSE (test code = 86 mg/dL 70-110 N GLU) BLOOD UREA NITROGEN 12 mg/dL 7-18 N (test code = BUN) GLOMERULAR FILTRATION 84.2 >60 Unit o f measure: RATE (test code = GFR) mL/mi n/1.73 [id number] Range:Healthy A dults >90 mL/min/1.73 m2 For Chronic Kidney Disease: St age II Mild Dec rease in GFR 6 0-90 Stage III Moderate Decrea se in GFR 30-59 Stage IV Se alejo Decrease in GFR 15-29 Stage V Kidney Failur e <15 CREATININE (test code 0.70 mg/dL 0.55-1.30 N = CREAT) CALCIUM (test code = 9.3 mg/dL 8.2-10.1 N CA)
[2020-08-21] MEDS ORDERED: NA CHLORIDE 0.9% 1,000 ML ONE ×2 (20:23→21:21)
[2020-08-21] MEDS ORDERED: HYDROMORPHONE HCL 1 MG/ML INJ ONE ×3 (20:23→21:21)
[2020-08-21 20:31] LABS: Absolute Lymphocytes (CBC) 1.9 K/uL (0.7-4.9); Basophils % 0.7 % (0-1.3); Hematocrit 29.5 % (36.0-45.0); Lymphocytes % 29.5 % (15.3-44.8); MPV 9.1 fL (7.6-11.3); RBC Red Blood Cell Count 3.57 M/uL (3.86-4.86)
[2020-08-21 20:43] LABS: Potassium 3.2 mmol/L (3.5-5.1)
--- NOTE | 2020-08-21 21:01 | RAD REPORT ---
EXAM DESCRIPTION: RAD - Wrist Left 3 View - 08/21/2020 8:53 pm CLINICAL HISTORY: Left wrist pain status post injury FINDINGS: No fracture or dislocation is seen. Osteoporosis If the patient continues to have symptoms to suggest an occult fracture then a followup plain film se ana in 7 days would be recommended
--- NOTE | 2020-08-21 21:02 | RAD REPORT ---
EXAM DESCRIPTION: Sharon Ball Left08/21/2020 8:53 pm CLINICAL HISTORY: Left leg pain status post injury FINDINGS: No fracture is seen involving the tibia/fibula
[2020-08-21 21:07] LABS: Protime INR 0.91
[2020-08-21] MEDS ORDERED: ONDANSETRON 4 MG/2 ML VIAL ONE (21:21)
--- NOTE | 2020-08-21 21:21 | RAD REPORT ---
EXAM DESCRIPTION: CT - Head C Spine Tobin Barr - 08/21/2020 8:59 pm CLINICAL HISTORY: Head and neck injury with chest and abdominal pain status post fall. . Head and ne ck pain . TECHNIQUE: Computed axial tomography of the head and cervical spine was obtained Computed axial tomography of the chest, abdomen and pelvis was obtained. 100 cc Isovue-300 was given intravenously coronal and sagittal reconstruction was performed. All CT scans are performed using dose optimization technique as appropriate and may include automated exposure control or mA/KV adjustment according to patient size. COMPARISON: None FINDINGS: An intracranial bleed is not seen. The ventricles are normal in caliber. An extra-axial fl uid collection is not noted. A cervical fracture is not seen. No dislocation is seen. A mediastinal hematoma is not noted. A pleural effusion is not present. A lung contusion is not seen. The liver, spleen, pancreas, adrenals, kidneys and bladder do not demonstrate a traumatic injury. 2.3 centimeters left adrenal nodule. A 6.2 centimeter mass within the left lobe of the liver demonstrates peripheral common nodular/centri petal enhancement likely hemangioma. . Thoracic ascending aorta has an AP diameter of 4.6 centimeters. Old fracture left pubic bone IMPRESSION: 1. No acute intracranial abnormality is seen 2. A cervical fracture is not visualized. If the patient continues have symptoms to suggest intracran ial/spinal cord pathology then MRI would be recommended. 3. No acute traumatic injury involving the chest, abdomen or pelvis is seen. 4. 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 2.1 centimeter left adrenal nodule could represent an adenoma or metastasis. Nonemergent MRI would be helpful to distinguish between the 2 6. 6.2 centimeter hepatic mass probably hemangioma. Follow-up ultrasound in 3 months recommended to a ssess stability
--- NOTE | 2020-08-21 21:31 | EDPHYS ---
Physician Documentation [facility] Name: Dary Michaud Age: 65 yrs Sex: Female : 1955 Arrival Date: 08/21/2020 Time: 19:51 Bed 16 Private MD: Aleksey Storey ED Physician Gerber Erickson HPI: 08/21 20:10 This 65 yrs old Female presents to ER via Unassigned with complaints of Fall cp Injury. 20:10 Details of fall: The patient fell from a height, off of horse drawn carriage . Onset: cp The symptoms/episode began/occurred just prior to arrival. Associated injuries: The patient sustained left wrist, painful injury, left leg, decreased range of motion, deformity, painful injury. Historical: - Allergies: 20:09 PENICILLINS; sg - PMHx: 20:09 GERD; Hypertension; Hypothyroidism; sg - Immunization history: Last tetanus immunization: unknown. - Social history:: Smoking status: Patient denies any tobacco usage or history of. Patient/guardian denies using alcohol, street drugs. ROS: 20:15 Constitutional: Negative for body aches, chills, fever, poor PO intake. cp 20:15 Eyes: Negative for injury, pain, redness, and discharge. cp 20:15 ENT: Negative for ear pain, sore throat, difficulty swallowing, difficulty handling secretions. 20:15 Cardiovascular: Negative for chest pain, palpitations. 20:15 Respiratory: Negative for cough, shortness of breath, wheezing. 20:15 Abdomen/GI: Negative for abdominal pain, nausea, vomiting, and diarrhea. 20:15 MS/extremity: Positive for injury or acute deformity, decreased range of motion, pain, swelling, tenderness, of the distal left femur. 20:15 Neuro: Negative for altered mental status, headache, loss of consciousness. 20:15 All other systems are negative. Exam: 20:20 Constitutional: The patient appears in no acute distress, alert, awake, non-toxic, well cp developed, well nourished, in obvious pain, uncomfortable. 20:20 Head/Face: Normocephalic, atraumatic. cp 20:20 Eyes: Periorbital structures: appear normal, Conjunctiva: normal, no exudate, no injection, Lids and lashes: appear normal, bilaterally. 20:20 ENT: External ear(s): are unremarkable, Nose: is normal, Mouth: Lips: moist, Oral mucosa: moist, Posterior pharynx: Airway: no evidence of obstruction, patent. 20:20 Neck: C-spine: vertebral tenderness, is not appreciated, crepitus, is not appreciated. 20:20 Chest/axilla: Inspection: normal, Palpation: is normal, no crepitus, no tenderness. 20:20 Cardiovascular: Rate: normal, Rhythm: regular, Pulses: Pulses are 2+ in right radial artery, right dorsalis pedis artery, left radial artery and left dorsalis pedis artery. JVD: is not appreciated. 20:20 Respiratory: the patient does not display signs of respiratory distress, Respirations: normal, no use of accessory muscles, no retractions, labored breathing, is not present, Breath sounds: are clear throughout, no decreased breath sounds, no stridor, no wheezing. 20:20 Abdomen/GI: Inspection: abdomen appears normal, Bowel sounds: active, all quadrants, Palpation: abdomen is soft and non-tender, in all quadrants. 20:20 Musculoskeletal/extremity: Extremities: grossly normal except: noted in the distal left femur: decreased ROM, deformity, pain, swelling, tenderness. 20:20 Neuro: Orientation: to person, place \T\ time. Mentation: is normal. Vital Signs: 19:51 BP 152 / 89; Pulse 82; Resp 16; Temp 97.7(TE); Pulse Ox 100% on R/A; Pain 10/10; jb4 20:15 BP 152 / 101; Pulse 66; Resp 16; Pulse Ox 100% on R/A; jb4 21:15 BP 145 / 87; Pulse 82; Resp 16; Pulse Ox 100% on 2 lpm NC; jb4 22:00 BP 148 / 86; Pulse 67; Resp 16; Pulse Ox 96% on 2 lpm NC; jb4 23:00 BP 144 / 94; Pulse 66; Resp 16; Pulse Ox 98% on R/A; jb4 [place] Coma Score: 19:51 Eye Response: spontaneous(4). Verbal Response: oriented(5). Motor Response: obeys jb4 commands(6). Total: 15. 20:15 Eye Response: spontaneous(4). Verbal Response: oriented(5). Motor Response: obeys jb4 commands(6). Total: 15. 21:15 Eye Response: spontaneous(4). Verbal Response: oriented(5). Motor Response: obeys jb4 commands(6). Total: 15. 22:00 Eye Response: spontaneous(4). Verbal Response: oriented(5). Motor Response: obeys jb4 commands(6). Total: 15. 23:00 Eye Response: spontaneous(4). Verbal Response: oriented(5). Motor Response: obeys jb4 commands(6). Total: 15. Trauma Score (Adult): 19:51 Eye Response: spontaneous(1); Verbal Response: oriented(1); Motor Response: obeys jb4 commands(2); Systolic BP: > 89 mm Hg(4); Respiratory Rate: 10 to 29 per min(4); [place] Score: 15; Trauma Score: 12 20:15 Eye Response: spontaneous(1); Verbal Response: oriented(1); Motor Response: obeys jb4 commands(2); Systolic BP: > 89 mm Hg(4); Respiratory Rate: 10 to 29 per min(4); [place] Score: 15; Trauma Score: 12 21:15 Eye Response: spontaneous(1); Verbal Response: oriented(1); Motor Response: obeys jb4 commands(2); Systolic BP: > 89 mm Hg(4); Respiratory Rate: 10 to 29 per min(4); [place] Score: 15; Trauma Score: 12 22:00 Eye Response: spontaneous(1); Verbal Response: oriented(1); Motor Response: obeys jb4 commands(2); Systolic BP: > 89 mm Hg(4); Respiratory Rate: 10 to 29 per min(4); Pablo Score: 15; Trauma Score: 12 23:00 Eye Response: spontaneous(1); Verbal Response: oriented(1); Motor Response: obeys jb4 commands(2); Systolic BP: > 89 mm Hg(4); Respiratory Rate: 10 to 29 per min(4); Pablo Score: 15; Trauma Score: 12 MDM: 19:57 Patient medically screened. cp 20:00 Differential diagnosis: closed head injury, contusion, fracture, multiple trauma. cp 22:10 Counseling: I had a detailed discussion with the patient and/or guardian regarding: the cp historical points, exam findings, and any diagnostic results supporting the discharge/admit diagnosis, lab results, radiology results, the need to transfer to another facility, for higher level of care. Physician consultation: regarding regarding transfer, to [facility]. accepting physician will be DR Dennison w/o consult. 23:39 Data reviewed: vital signs, nurses notes. Data interpreted: Pulse oximetry: on 2L(s) snw per nasal canula, is 100 %. Interpretation: normal. ED course: Pt assisted to EMS stretcher. Knee immobilizer in place. Pt transferred to [place] via EMS. 08/21 19:57 Order name: Basic Metabolic Panel; Complete Time: 21:03 cp 08/21 19:57 Order name: CBC with Diff; Complete Time: 21:03 08/21 21:03 Interpretation: Normal except: RBC 3.57; HGB 10.2; HCT 29.5. cp 08/21 19:57 Order name: CT Traumagram (Head C Spine CAP W Con); Complete Time: 21:28 cp 08/21 19:57 Order name: Type And Screen; Complete Time: 21:16 cp 08/21 19:57 Order name: PT-INR; Complete Time: 22:01 cp 08/21 19:57 Order name: Ptt, Activated; Complete Time: 22:01 cp 08/21 19:57 Order name: XRAY Wrist LEFT 3 view; Complete Time: 21:03 cp 08/21 19:57 Order name: XRAY Femur LEFT; Complete Time: 22:01 cp 23 22:01 Interpretation: Reviewed. 08/21 19:57 Order name: XRAY Pelvis; Complete Time: 22:01 cp 08/21 19:57 Order name: XRAY Tib Fib LEFT; Complete Time: 21:16 cp 08/21 19:57 Order name: Labs collected and sent; Complete Time: 22:48 cp 08/21 20:25 Order name: Moran; Complete Time: 20:48 cp 08/21 20:31 Order name: Knee Immobilizer; Complete Time: 20:48 sg 08/21 21:05 Order name: Splint - Sugar Tong - Forearm: left; Complete Time: 22:48 cp 08/21 21:17 Order name: NPO; Complete Time: 21:19 cp Administered Medications: 20:15 Drug: NS 0.9% 1000 ml Route: IV; Rate: 1 bolus; Site: right antecubital; jb4 21:45 Follow up: Response: No adverse reaction; IV Status: Completed infusion; IV Intake: jb4 1000ml 20:15 Drug: Dilaudid 1 mg Route: IVP; Site: right antecubital; jb4 20:45 Follow up: Response: No adverse reaction; Pain is decreased; RASS: Alert and Calm (0) jb4 20:40 Drug: Dilaudid 1 mg Route: IVP; Site: right antecubital; jb4 21:10 Follow up: Response: No adverse reaction; Pain is decreased; RASS: Alert and Calm (0) jb4 21:15 Drug: Zofran (Ondansetron) 4 mg Route: IVP; Site: right antecubital; jb4 21:45 Follow up: Response: No adverse reaction; Nausea is decreased jb4 21:19 Drug: NS 0.9% 1000 ml Route: IV; Rate: 1000 ml/hr; Site: right antecubital; jb4 22:20 Follow up: Response: No adverse reaction; IV Status: Completed infusion; IV Intake: jb4 1000ml 21:19 Drug: Dilaudid 1 mg Route: IVP; Site: right antecubital; jb4 21:49 Follow up: Response: No adverse reaction; Pain is decreased; RASS: Alert and Calm (0) 4 23:35 Drug: Dilaudid 0.5 mg Route: IVP; Site: right antecubital; jb4 23:36 Follow up: Response: Medication administered at discharge. jb4 Disposition: 08/22 02:05 Co-signature as Attending Physician, Gerber Erickson MD. ar2 Disposition: 08/21/20 21:30 Transfer ordered to [facility]. Diagnosis is Displaced oblique fracture of shaft of left femur. - Reason for transfer: Higher level of care. - Accepting physician is DR Dennison. - Condition is Stable. - Problem is new. - Symptoms have improved. Signatures: Dispatcher [employer] EDMaximino Maier RN Katy Bermeo, WIRED SWEATBAND CUTTER-C WIRED SWEATBAND CUTTER-Csnw Michael Veras FNP-C WIRED SWEATBAND CUTTER-Cla1 Jonah Archuleta PA PA cp Bryson, James, RN RN jb Gerber Erickson MD MD ar2 Corrections: (The following items were deleted from the chart) 08/21 22:10 21:30 08/21/2020 21:30 Transfer ordered to [facility]. Diagnosis is cp Displaced oblique fracture of shaft of left femur. Reason for transfer: Higher level of care. Accepting physician is Doctor. Condition is Stable. Problem is new. Symptoms have improved. cp 22:43 21:29 Moran ordered. snw jb4 23:41 22:10 08/21/2020 21:30 Transfer ordered to [facility]. Diagnosis is jb4 Displaced oblique fracture of shaft of left femur. Reason for transfer: Higher level of care. Accepting physician is DR Dennison. Condition is Stable. Problem is new. Symptoms have improved. cp
--- NOTE | 2020-08-21 21:31 | RAD REPORT ---
EXAM DESCRIPTION: RAD - Pelvis - 08/21/2020 8:53 pm CLINICAL HISTORY: Pelvic pain status post injury FINDINGS: No acute fracture or dislocation is seen. Old left pubic bone fracture Osteoporosis
--- NOTE | 2020-08-21 21:31 | ER ---
Nurse's Notes [facility] Name: Dary Michaud Age: 65 yrs Sex: Female : 1955 Arrival Date: 08/21/2020 Time: 19:51 Bed 16 Private MD: Aleksey Storey Diagnosis: Displaced oblique fracture of shaft of left femur Presentation: 08/21 19:51 Chief complaint: EMS states: Pt was standing on a horse drawn carriage when it suddenly jb4 began to move and she fell landing on her left side. Obvious deformity noted tot he left knee, femur, and wrist. 19:51 Care prior to arrival: Medication(s) given: Normal saline infusion, 500 mL, zofran 6 mg jb4 100 mcg of fentanyl. Mechanism of Injury: Fall horse drawn carriage. Trauma event details: Injury occurred in the [facility]. 19:51 Acuity: BLANCA 2 jb4 19:51 Method Of Arrival: EMS: [facility] jb4 19:51 Coronavirus screen: Client denies travel out of the [place] in the last 14 days. At this jb4 time, the client does not indicate any symptoms associated with coronavirus-19. Ebola Screen: No symptoms or risks identified at this time. Initial Sepsis Screen: Does the patient meet any 2 criteria? No. Patient's initial sepsis screen is negative. Does the patient have a suspected source of infection? No. Patient's initial sepsis screen is negative. Risk Assessment: Do you want to hurt yourself or someone else? Patient reports no desire to harm self or others. Onset of symptoms was August 21, 2020. 19:51 Transition of care: patient was not received from another setting of care. jb4 Trauma Activation: Alert Physician: ED Physician; Name: Jeffrey; Notified At: 19:51; Arrived At: 19:51 Physician: General Surgeon; Name: ; Notified At: 19:51; Arrived At: Physician: Radiology; Name: Prema; Notified At: 19:51; Arrived At: 19:51 Physician: Respiratory; Name: ; Notified At: 19:51; Arrived At: Physician: Lab; Name: ; Notified At: 19:51; Arrived At: Historical: - Allergies: 20:09 PENICILLINS; sg - PMHx: 20:09 GERD; Hypertension; Hypothyroidism; sg - Immunization history: Last tetanus immunization: unknown. - Social history:: Smoking status: Patient denies any tobacco usage or history of. Patient/guardian denies using alcohol, street drugs. Screenin:51 Abuse screen: Denies threats or abuse. Nutritional screening: No deficits noted. jb4 Tuberculosis screening: No symptoms or risk factors identified. Fall risk None identified. 19:51 Fall Risk None identified. jb4 Primary Survey: 19:51 NO uncontrolled hemorrhage observed. A: The patient is alert. Airway: patent, No jb4 supplemental oxygen in use on arrival. Oral cavity: clear, gag reflex present, Trachea midline. Breathing/Chest: Respiratory pattern: regular, Respiratory effort: spontaneous, unlabored, Chest inspection: symmetrical rise and fall of the chest. Circulation: Pulses: palpable left radial artery and left dorsalis pedis artery. Skin color: pink, Skin temperature: warm, dry. Disability Alert. Exposure/Environment: All clothing and personal items were removed. Forensic evidence collection is not deemed to be indicated at this time. Items placed in patient belonging bag. There is no evidence of uncontrolled external bleeding. Obvious injury(ies) are noted at this time: Obvious deformity to the left wrist and to the left knee and femur. A warming method has been applied: A warm blanket has been provided to the patient. 20:51 Reassessment Airway Airway Patent Oxygen No O2 Breathing/Chest Respiratory pattern jb4 Regular None Respiratory effort Spontaneous Unlabored Chest inspection Symmetrical Circulation Color Horatio Temperature Warm Dry Disability Alert. Secondary Survey: 19:51 HEENT: No deficits noted. Gastrointestinal: No deficits noted. : No deficits noted. jb4 Musculoskeletal: Circulation, motion, and sensation intact. Capillary refill < 3 seconds, in left fingers. toes. Bony deformity noted of left wrist, left quadriceps and left knee. Assessment: 19:51 General: Appears in no apparent distress. comfortable, Behavior is calm, cooperative, jb4 appropriate for age. Pain: Complains of pain in left wrist, left quadriceps and left knee Pain does not radiate. Pain currently is 10 out of 10 on a pain scale. Neuro: Level of Consciousness is awake, alert, obeys commands, Oriented to person, place, time, situation. Cardiovascular: Patient's skin is warm and dry. Respiratory: Airway is patent Respiratory effort is even, unlabored, Respiratory pattern is regular, symmetrical. GI: No signs and/or symptoms were reported involving the gastrointestinal system. : No signs and/or symptoms were reported regarding the genitourinary system. EENT: No signs and/or symptoms were reported regarding the EENT system. Derm: Skin is intact, Skin is pink, warm \T\ dry. Musculoskeletal: Bony deformity noted of left wrist, left quadriceps and left knee Swelling present in left wrist, left quadriceps and left knee. 20:00 Reassessment: Patient appears in no apparent distress at this time. Patient and/or jb4 family updated on plan of care and expected duration. Pain level reassessed. Patient is alert, oriented x 3, equal unlabored respirations, skin warm/dry/pink. 21:00 Reassessment: Patient appears in no apparent distress at this time. Patient and/or jb4 family updated on plan of care and expected duration. Pain level reassessed. Patient is alert, oriented x 3, equal unlabored respirations, skin warm/dry/pink. 22:00 Reassessment: Patient appears in no apparent distress at this time. Patient and/or jb4 family updated on plan of care and expected duration. Pain level reassessed. Patient is alert, oriented x 3, equal unlabored respirations, skin warm/dry/pink. 23:00 Reassessment: Patient appears in no apparent distress at this time. Patient and/or jb4 family updated on plan of care and expected duration. Pain level reassessed. Patient is alert, oriented x 3, equal unlabored respirations, skin warm/dry/pink. 23:30 Reassessment: Report given to EMS, Pt transferred to receiving facility. jb4 Vital Signs: 19:51 BP 152 / 89; Pulse 82; Resp 16; Temp 97.7(TE); Pulse Ox 100% on R/A; Pain 10/10; jb4 20:15 BP 152 / 101; Pulse 66; Resp 16; Pulse Ox 100% on R/A; jb4 21:15 BP 145 / 87; Pulse 82; Resp 16; Pulse Ox 100% on 2 lpm NC; jb4 22:00 BP 148 / 86; Pulse 67; Resp 16; Pulse Ox 96% on 2 lpm NC; jb4 23:00 BP 144 / 94; Pulse 66; Resp 16; Pulse Ox 98% on R/A; jb4 [place] Coma Score: 19:51 Eye Response: spontaneous(4). Verbal Response: oriented(5). Motor Response: obeys jb4 commands(6). Total: 15. 20:15 Eye Response: spontaneous(4). Verbal Response: oriented(5). Motor Response: obeys jb4 commands(6). Total: 15. 21:15 Eye Response: spontaneous(4). Verbal Response: oriented(5). Motor Response: obeys jb4 commands(6). Total: 15. 22:00 Eye Response: spontaneous(4). Verbal Response: oriented(5). Motor Response: obeys jb4 commands(6). Total: 15. 23:00 Eye Response: spontaneous(4). Verbal Response: oriented(5). Motor Response: obeys jb4 commands(6). Total: 15. Trauma Score (Adult): 19:51 Eye Response: spontaneous(1); Verbal Response: oriented(1); Motor Response: obeys jb4 commands(2); Systolic BP: > 89 mm Hg(4); Respiratory Rate: 10 to 29 per min(4); [place] Score: 15; Trauma Score: 12 20:15 Eye Response: spontaneous(1); Verbal Response: oriented(1); Motor Response: obeys jb4 commands(2); Systolic BP: > 89 mm Hg(4); Respiratory Rate: 10 to 29 per min(4); [place] Score: 15; Trauma Score: 12 21:15 Eye Response: spontaneous(1); Verbal Response: oriented(1); Motor Response: obeys jb4 commands(2); Systolic BP: > 89 mm Hg(4); Respiratory Rate: 10 to 29 per min(4); [place] Score: 15; Trauma Score: 12 22:00 Eye Response: spontaneous(1); Verbal Response: oriented(1); Motor Response: obeys jb4 commands(2); Systolic BP: > 89 mm Hg(4); Respiratory Rate: 10 to 29 per min(4); [place] Score: 15; Trauma Score: 12 23:00 Eye Response: spontaneous(1); Verbal Response: oriented(1); Motor Response: obeys jb4 commands(2); Systolic BP: > 89 mm Hg(4); Respiratory Rate: 10 to 29 per min(4); [place] Score: 15; Trauma Score: 12 ED Course: 19:51 Patient arrived in ED. sg 19:51 Patient has correct armband on for positive identification. Placed in gown. Bed in low jb4 position. Call light in reach. Side rails up X 1. Patient maintains SpO2 saturation greater than 95% on room air. 19:51 Arm band placed on right wrist. jb4 19:51 Patient maintains SpO2 saturation greater than 95% on room air. Thermoregulation: warm jb4 blanket given to patient. 19:54 Jonah Archuleta PA is PHCP. cp 19:54 Gerber Erickson MD is Attending Physician. cp 19:58 Otto Mason, ANGEL is Primary Nurse. jb4 20:08 Aleksey Storey DO is Private Physician. sg 20:29 Triage completed. jb4 20:54 XRAY Wrist LEFT 3 view In Process Unspecified. EDMS 20:54 XRAY Femur LEFT In Process Unspecified. EDMS 20:54 XRAY Pelvis In Process Unspecified. EDMS 20:54 XRAY Tib Fib LEFT In Process Unspecified. EDMS 20:58 CT Traumagram (Head C Spine CAP W Con) In Process Unspecified. EDMS 21:32 initiated a transfer with Jocelyn from [facility]. mw2 22:09 administrative approval given by Jocelyn Villegas/ patient has been accepted to [address] Dr. Dennison has accepted the patient in transfer/ report to be called to [phone]. 23:40 No provider procedures requiring assistance completed. Patient transferred, IV remains jb4 in place. Administered Medications: 20:15 Drug: NS 0.9% 1000 ml Route: IV; Rate: 1 bolus; Site: right antecubital; jb4 21:45 Follow up: Response: No adverse reaction; IV Status: Completed infusion; IV Intake: jb4 1000ml 20:15 Drug: Dilaudid 1 mg Route: IVP; Site: right antecubital; jb4 20:45 Follow up: Response: No adverse reaction; Pain is decreased; RASS: Alert and Calm (0) jb4 20:40 Drug: Dilaudid 1 mg Route: IVP; Site: right antecubital; jb4 21:10 Follow up: Response: No adverse reaction; Pain is decreased; RASS: Alert and Calm (0) jb4 21:15 Drug: Zofran (Ondansetron) 4 mg Route: IVP; Site: right antecubital; jb4 21:45 Follow up: Response: No adverse reaction; Nausea is decreased jb4 21:19 Drug: NS 0.9% 1000 ml Route: IV; Rate: 1000 ml/hr; Site: right antecubital; jb4 22:20 Follow up: Response: No adverse reaction; IV Status: Completed infusion; IV Intake: jb4 1000ml 21:19 Drug: Dilaudid 1 mg Route: IVP; Site: right antecubital; jb4 21:49 Follow up: Response: No adverse reaction; Pain is decreased; RASS: Alert and Calm (0) jb4 23:35 Drug: Dilaudid 0.5 mg Route: IVP; Site: right antecubital; jb4 23:36 Follow up: Response: Medication administered at discharge. jb4 Intake: 21:45 IV: 1000ml; Total: 1000ml. jb4 22:20 IV: 1000ml; Total: 2000ml. jb4 23:00 IV: 2000ml (IV Fluid); Total: 4000ml. jb4 Output: 23:00 Urine: 1600ml (Moran); Total: 1600ml. jb4 Outcome: 21:30 ER care complete, transfer ordered by MD. newman 23:40 Transferred by ground EMS [facility] to [facility]. jb4 23:40 Condition: stable 23:40 Discharge instructions given to patient, Instructed on the need for transfer, Demonstrated understanding of instructions. 23:41 Patient's length of stay in the Emergency Department was greater than 2 hours. Pt jb4 transferred.Patient's length of stay extended due to 23:41 Patient left the ED. jb4 Signatures: Dispatcher [employer] EDMS Maximino Morales RN RN Jonah Cook PA PA cp Bryson, James RN RN jb4 Zeferino Hernandez 2
--- NOTE | 2020-08-21 21:34 | RAD REPORT ---
EXAM DESCRIPTION: RAD - Femur Left - 08/21/2020 8:53 pm CLINICAL HISTORY: Left leg pain FINDINGS: Markedly displaced comminuted, oblique fracture involves the distal left femur. No disloca tion.
[2020-08-21] MEDS ORDERED: HYDROMORPHONE HCL 0.5 MG/0.5 ML INJ ONE (23:48)
[2020-08-21 23:57] VITALS: TEMP 97.7
[2020-08-22 00:22] VITALS: BP 144/94; O2SAT 98
== END 2020-08-21 23:41 | disposition short-term general hospital (02) ==
LOC: ER 19:49
DX: S72.332A Displaced oblique fracture of shaft of left femur, initial encounter for closed fracture (principal); W17.89XA Other fall from one level to another, initial encounter; Y93.9 Activity, unspecified; Y92.9 Unspecified place or not applicable; I10 Essential (primary) hypertension; Z88.0 Allergy status to penicillin
CPT/HCPCS: 96361; 85025; 80048; 36415; 86900; 86850; 85610; 82565; 86901; 85730; 70450; 72125; 71260; 74177; 72170; 73110; 73552; 73590; 96375; 96374; 99285; Q9967; J1170 ×4; J7030 ×2; J2405; G0390

== ENCOUNTER 2021-01-07 07:57 | Emergency (ER) | payer OTHER ==
--- OUTSIDE RECORDS SUMMARY | 2021-01-07 07:59 | XMS REPORT | Continuity of Care Document ---
:[address] [facility] t Address [address] [place] [address] Care Team Providers Name Role Phone NANI Attending Clinician Unavailable Mynor Storey Attending Clinician [phone], Lab Attending Clinician Unavailable Doctor Unassigned, Name Attending Clinician Unavailable Payers Payer Name Policy Type Policy Number Effective Date Expiration Date S ource Problems Condition Condition Condition Status Onset Resolution Last Treating Co mments Source Name Details Category Date Date Treatment Clinician Date Acquired Acquired Problem [facility] hyp[facility]ro[facility] hypothyroi Lynda kes - dism dism Memoria l [facility] Other long Other long Problem Active [facility] (current[facility] (current) Eleazar patricia drug drug l therapy therapy Psychiatric ent [facility] Chronic Chronic Problem Active [facility] Stress Stress Problem Active [facility] incontinen incontinen Lynda kes - ce of ce of Memoria urine urine l [facility] Hypertensi Hypertensi Problem Active [facility] on, on, [facility] - unspecifie unspecifie Me moria d type d type l [facility]iatric [facility] Clin[facility] GERD GERD Problem Active [facility] without without [facility] - esophagiti esophagiti Me moria s s l [facility] Clinics Incontinen Incontinen Problem Active [facility] ce of ce of [facility] - urine in urine in Memori a female female l Psychiatric ent [facility] Chronic Chronic Problem Active [facility] kidney kidney [facility] - disease, disease, Memori a stage 2 stage 2 l (mild) (mild) Psychiatric ent Clinics Liver mass Liver mass Problem Active [facility] Hyperchole Hyperchole Problem Active [facility] sterolemia sterolemia Lynda kes - [facility] Nodular Nodular Problem Active [facility] hyperplasi hyperplasi Lynda kes - a of liver a of liver Me moria l [facility] Primary Primary Problem Active [facility] osteoarthr osteoarthr [facility] Allergies, Adverse Reactions, Alerts Allergy Allergy Status Severity Reaction(s) Onset Inactive Treating Comm ents Source Name Type Date Date Clinician Penicill DA Active U 2019-0 [facility] [place] [facility] Penicill DA Active U 2020-0 [facility] 09[facility]25 [place] 00:[facility]: Orthope 00 [facility] nickel DA Active MO 0 [facility] 09-25 [place] 00:[facility]: Orthope 00 dic Hosp[facility] penicill Adverse Active Info Not [facility] in Reaction Available [facility] Medications Ordered Filled Start Stop Current Ordering Indication Dosage Frequency Signature Comments Components Source Medication Medication Date Date Medication? Clinician (SIG) Name Name Salvador Franco Yes Aleksey as [facility] directed [facility] - 00:00: Memoria 00 [facility] ent [facility] Bactrim DS Bactrim DS Yes Aleksey [address] [facility] 5[facility]11 [facility]y [facility] - 00:[facility]: Memoria 00 [facility] ent Clinics Melatonin Melatonin Yes Aleksey [address] [facility] Storey at bedtime [facility] - as needed Memoria with food [facility] ent Clinics BuPROPion BuPROPion Yes Aleksey [address] HCl HCl Storey [facility] Pantoprazol Pantoprazol Yes Aleksey [address] e Sodium e Sodium [facility] Levothyroxi Levothyroxi Yes Aleksey [address] [facility] ne Sodium ne Sodium Storey on an [facility] - empty Memoria stomach in l the [facility] ent Clinics Nitrofurant Nitrofurant Yes Aleksey [address] [address] oin oin Storey with food [facility] - Macrocrysta Macrocrysta or milk [facility] l l Outpati ent Clinics Pyridium Pyridium Yes Aleksey [address] Storey after [facility] - meals [facility]oria l Outpati ent Clinics Glucosamine Glucosamine Yes Aleksey as [facility] Chondro Chondro Storey directed L ukes - Complex Complex Memoria l Outpati ent Clinics Amlodipine Amlodipine Yes Aleksey [address] [address] Besylate Besylate Storey Alana es - Memoria l Outpati ent Clinics Pantoprazol Pantoprazol Yes Aleksey TAKE [address] [facility] [facility] e Sodium e Sodium Storey TABLET BY [facility] - MOUTH ONCE Memoria DAILY l Outpati ent Clinics Oxybutynin Oxybutynin Yes Aleksey [address] Chloride Chloride Storey Alana es - Memoria l Outpati ent Clinics Losartan Losartan Yes Aleksey TAKE [address] Potassium-H Potassium-H Storey TABLET BY [facility] - CTZ CTZ MOUTH ONCE [facility] Procedures This patient has no known procedures. Encounters Start End Encounter Admission Attending Care Care Encounter Source Date/Time Date/Time Type Type Clinicians Facility Department ID 2021-01-04 Outpatient CALEB CARDOZA [facility] [id number] [place] 03:31:44 Health 2020-10-11 2020-10-11 Outpatient [place] [facility] [place] [id number] 00:00:00 00:00:00 Aleksey [id number] Mynor [id number] 2020-09-13 2020-09-13 Outpatient [place] [facility] [place] [id number] 00:00:00 00:00:00 Aleksey [id number] Mynor [id number] 2020-08-13 2020-08-13 Coroner Transport Technician 2, Adc Lab [facility] [id number] 14:41:43 14:56:43 Visit Cricket [id number] [place] [id number] Severiano [id number] [address] 2020-08-13 2020-08-13 Orders Doctor CALEB [id number] 00:00:00 00:00:00 Only Unassigned, RU [id number] [place] [facility] [id number] 2019-06-05 2019-06-05 [facility] [id number] [facility] 13:19:00 13:19:00 t Jimena Ling [facility] Outpat[facility] ent Clinics 2019-05-29 2019-05-29 [facility] [id number] 16:20:00 16:20:00 t Hardyjackeline Ling [facility] Outpati ent Clinics 2018-12-12 2018-12-12 [facility] [id number] 09:52:00 09:52:00 t Jimena Ling [facility] Outpati ent Clinics 2018-11-24 2018-11-24 [facility] [id number] 08:20:00 08:20:00 t Jimena Ling [facility] Outpati ent Clinics 2018-11-04 2018-11-04 [facility] [id number] [address] 11:30:00 11:30:00 t Specialty/U Lynda kes - Specialty rology Memori a /Urology Clinic l Clinic Outpati ent Clinics 2018-10-11 2018-10-11 [facility] [id number] 10:30:00 10:30:00 t Specialty/U Lynda kes - Specialty rology Memori a /Urology Clinic l Clinic Outpati ent Clinics 2018-10-10 2018-10-10 [facility] [id number] 12:57:00 12:57:00 t Specialty/U Lynda kes - Specialty rology Memori a /Urology Clinic l Clinic Outpati ent Clinics 2018-10-03 2018-10-03 [facility] [id number] 10:32:00 10:32:00 t [facility] Outpati ent Clinics 2018-09-15 2018-09-15 [facility] [id number] 09:00:00 09:00:00 t Specialty/U Lynda kes - Specialty rology Memori a /Urology Clinic l Clinic Outpati ent Clinics 2018-09-05 2018-09-05 [facility] [id number] 14:40:00 14:40:[address] [facility] 2018-09-02 2018-09-02 [facility] [id number] 09:15:00 09:15:00 t Jimena Ling [facility] Medicine Outpati ent Clinics 2018-08-05 2018-08-05 [facility] [id number] 11:30:00 11:30:00 t Specialty/U Lynda kes - Specialty rology Memori a /Urology Clinic l Clinic Outpati ent Clinics 2018-05-27 2018-05-27 [facility] [id number] 09:00:00 09:00:00 t Jimena Ling [facility] Medicine Outpati ent Clinics 2018-05-06 2018-05-06 [facility] [id number] 11:00:00 11:00:00 t Specialty/U Lynda kes - Specialty rology Memori a /Urology Clinic l Clinic Outpati ent Clinics 2018-04-28 2018-04-28 [facility] [id number] 12:40:00 12:40:[address] [facility] 2018-04-12 2018-04-12 [facility] [id number] 15:07:00 15:07:[address] [facility] 2018 2018 [facility] [id number] 11:30:00 11:30:00 t Specialty/U Lynda kes - Specialty rology Memori a /Urology Clinic l Clinic Outpati ent Clinics 2018-01-25 2018-01-25 [facility] [id number] 09:38:00 09:38:00 t Jimena Ling [facility] Medicine Outpati ent Clinics Results Test Description Test Time Test Comments [...] CA) 8.7 mg/dL 8.2-10.1 N CBC W/AUTO [id number] 05:57:00 Test Item Value Reference Range Interpretation [...] 0-0 N code = NRBC) BASIC METABOLIC [id number] 15:26:00 Test Item Value Reference Range Interpretation [...] RATE (test code = GFR) mL/mi n/1.73 [id number] Range:Healthy A dults >90 mL/min/1.73 m2 For [...]
[2021-01-07 08:24] LABS: Absolute Lymphocytes (CBC) 1.2 K/uL (0.7-4.9); Basophils % 1.5 % (0-1.3); Hematocrit 35.6 % (36.0-45.0); Lymphocytes % 17.2 % (15.3-44.8); MPV 8.5 fL (7.6-11.3); RBC Red Blood Cell Count 4.36 M/uL (3.86-4.86)
[2021-01-07 08:30] LABS: Protime INR 0.86
[2021-01-07] MEDS ORDERED: MEPERIDINE HCL 25 MG/ML SYR ONE ×2 (08:34→10:46)
[2021-01-07] MEDS ORDERED: ONDANSETRON 4 MG/2 ML VIAL ONE (08:34)
[2021-01-07 08:39] LABS: Albumin 4.1 g/dL (3.4-5.0); Bilirubin Direct 0.1 mg/dL (0-0.2); Bilirubin Total 0.5 mg/dL (0.2-1.0); Potassium 3.6 mmol/L (3.5-5.1); Protein, Total 7.8 g/dL (6.4-8.2); Troponin (Emerg Dept Use Only) 0.04 ng/mL (0.0-0.045)
--- NOTE | 2021-01-07 08:48 | RAD REPORT ---
EXAM DESCRIPTION: CT - Head C Spine Mpr Wo Con - 01/07/2021 8:33 am CLINICAL HISTORY: Syncope. Head and neck injury status post fall. Head and neck pain COMPARISON: 2019 TECHNIQUE: Computed axial tomography of the head and cervical spine was obtained. Sagittal and coronal reconstruction was performed. All CT scans are performed using dose optimization technique as appropriate and may include automated exposure control or mA/KV adjustment according to patient size. FINDINGS: An intracranial bleed is not seen. The ventricles are normal in caliber. An extra-axial fl uid collection is not noted.Fluid within the visualized sinuses and mastoids is not seen A cervical fracture is not visualized. No dislocation is noted. Avulsion fracture mandibular left coranoid IMPRESSION: No acute intracranial abnormality is seen. A cervical fracture is not visualized. If the patient continues to have symptoms to suggest intracra nial /spinal cord pathology then MRI would be recommended Avulsion fracture mandibular left coranoid
--- NOTE | 2021-01-07 08:58 | RAD REPORT ---
EXAM DESCRIPTION: CTThoracic Spine W/o Cont01/07/2021 8:33 am CLINICAL HISTORY: Syncope. Fall with back pain COMPARISON: None TECHNIQUE: Computed axial tomography of thoracic spine was obtained with coronal and sagittal recons truction. All CT scans are performed using dose optimization technique as appropriate and may include automated exposure control or mA/KV adjustment according to patient size. FINDINGS: Compression fracture involves the T3 vertebral body estimated to be 60%. No retropulsion b one into the spinal canal. It appears acute/subacute. Mild to moderate compression fracture T4 vertebral body indeterminate age. No retropulsion of bone in to the spinal canal. No dislocation Mild spondylosis. IMPRESSION: T3 compression fracture estimated to compress the vertebral body 60%. No retropulsion of bone into the spinal canal. It appears acute/subacute. Mild to moderate compression fracture T4 vertebral body of indeterminate age. However, it has more of chronic than acute appearance
--- NOTE | 2021-01-07 09:02 | RAD REPORT ---
EXAM DESCRIPTION: CTSpine Lumbar Wo Con01/07/2021 8:33 am CLINICAL HISTORY: Syncope with fall and back pain COMPARISON: None TECHNIQUE: Computed axial tomography lumbar spine was obtained with coronal and sagittal reconstruct ion. All CT scans are performed using dose optimization technique as appropriate and may include automated exposure control or mA/KV adjustment according to patient size. FINDINGS: No fracture seen. No dislocation No high-grade stenosis noted IMPRESSION: Lumbar fracture is not visualized
--- NOTE | 2021-01-07 09:08 | RAD REPORT ---
EXAM DESCRIPTION: Skylar Single View01/07/2021 8:38 am CLINICAL HISTORY: Syncope/fall/chest pain COMPARISON: none FINDINGS: Left base is hazy which may indicate pneumonitis or pneumonia. Main lungs appear clear of acute infiltrate. Heart is borderline enlarged
--- NOTE | 2021-01-07 10:51 | ER ---
Nurse's Notes [facility] Name: Dary Michaud Age: 65 yrs Sex: Female : 1955 Arrival Date: 01/07/2021 Time: 07:59 Bed 7 Private MD: Diagnosis: Wedge compression fracture of third thoracic vertebra;Avulsion fracture of left mandible;Syncope and collapse;Pneumonia, unspecified organism Presentation: 01/07 08:01 Chief complaint: EMS states: "pt had a syncope episode while on the toilet this jd3 morning. woke up pretty confused, but has steadily gotten more oriented. reporting pain to the mid to lower back. we started a 18 G IV to the right hand and gave a gram of Ofirmev.". Coronavirus screen: At this time, the client does not indicate any symptoms associated with coronavirus-19. Ebola Screen: Patient negative for fever greater than or equal to 101.5 degrees Fahrenheit, and additional compatible Ebola Virus Disease symptoms. Initial Sepsis Screen: Does the patient meet any 2 criteria? No. Patient's initial sepsis screen is negative. Does the patient have a suspected source of infection? No. Patient's initial sepsis screen is negative. Risk Assessment: Do you want to hurt yourself or someone else? Patient reports no desire to harm self or others. Onset of symptoms was January 07, 2021. 08:01 Acuity: BLANCA 3 jd3 08:01 Method Of Arrival: EMS: [facility] jd3 Historical: - Allergies: 08:01 PENICILLINS; tw2 - Home Meds: 08:01 amlodipine 5 mg tab 1 tab once daily [Active]; levothyroxine oral [Active]; tw2 losartan-hydrochlorothiazide 100-12.5 mg Oral tab once daily [Active]; - PMHx: 08:01 GERD; Hypertension; Hypothyroidism; tw2 - Immunization history:: Adult Immunizations. - Social history:: Smoking status: . - Family history:: not pertinent. - Hospitalizations: : No recent hospitalization is reported. Screenin:59 Abuse screen: Denies threats or abuse. Nutritional screening: No deficits noted. tw2 Tuberculosis screening: No symptoms or risk factors identified. Fall Risk None identified. Assessment: 08:04 General: Appears uncomfortable, Behavior is cooperative, appropriate for age, anxious. jd3 Pain: Complains of pain in low back area and mid back area Quality of pain is described as sharp, shooting, tender. Neuro: Level of Consciousness is awake, alert, obeys commands, confused, Oriented to person, place, Moves all extremities. Full function Speech is normal, Facial symmetry appears normal, Pupils are PERRLA, Intact Reports a syncopal episode Denies weakness paresthesias numbness. Cardiovascular: Denies chest pain, Capillary refill < 3 seconds Patient's skin is warm and dry. Rhythm is regular. Respiratory: Airway is patent Respiratory effort is even, unlabored, Respiratory pattern is regular, symmetrical, Denies cough, shortness of breath. GI: Abdomen is round non-distended, Abd is soft and non tender X 4 quads. Reports nausea. : No signs and/or symptoms were reported regarding the genitourinary system. EENT: No signs and/or symptoms were reported regarding the EENT system. Derm: Skin is intact, Skin is dry, Skin is normal, Skin temperature is warm. Musculoskeletal: No signs and/or symptoms reported regarding the musculoskeletal system. 09:08 Reassessment: Patient appears in no apparent distress at this time. Patient and/or tw2 family updated on plan of care and expected duration. Pain level reassessed. Patient states feeling better. Patient states symptoms have improved. 10:11 Reassessment: Patient appears in no apparent distress at this time. Patient and/or jd3 family updated on plan of care and expected duration. Pain level reassessed. Patient is alert, oriented x 3, equal unlabored respirations, skin warm/dry/pink. Neuro: Level of Consciousness is awake, alert, obeys commands, Oriented to person, place, time, situation. 11:32 Reassessment: Patient appears in no apparent distress at this time. Patient and/or jd3 family updated on plan of care and expected duration. Pain level reassessed. Patient is alert, oriented x 3, equal unlabored respirations, skin warm/dry/pink. Patient states feeling better. Vital Signs: 08:04 BP 141 / 90; Pulse 64; Resp 20 S; Temp 97.9(TE); Pulse Ox 97% on R/A; Weight 74.84 kg jd3 (R); Height 5 ft. 10 in. (177.80 cm) (R); Pain 910; 09:07 BP 126 / 80; Pulse 61; Resp 17; Pulse Ox 95% on R/A; Pain 6/10; tw2 10:11 BP 134 / 82; Pulse 67; Resp 17 S; Pulse Ox 97% on R/A; Pain 6/10; jd3 08:04 Body Mass Index 23.67 (74.84 kg, 177.80 cm) jd3 ED Course: 07:59 Patient arrived in ED. tw2 08:01 Dick Gonzalez, ANGEL is Primary Nurse. jd3 08:01 Arm band placed on. tw2 08:01 Bed in low position. Side rails up X2. nuclear monitoring technician on. Pulse ox on. NIBP on. Warm tw2 blanket given. 08:03 Triage completed. jd3 08:08 Sunil Parry MD is Attending Physician. rn 08:12 Maintain EMS IV. Dressing intact. Good blood return noted. Site clean \\T\\ dry. Gauge \\T\\ tw 2 site: 18 G RIGHT FA. 08:14 Troponin (emerg Dept Use Only) Sent. mh5 08:14 Ptt, Activated Sent. mh5 08:32 CT Head C Spine In Process Unspecified. EDMS 08:32 CT Thoracic Spine Wo Cont In Process Unspecified. EDMS 08:33 CT Lumbar Spine Wo Con In Process Unspecified. EDMS 08:37 XRAY Chest (1 view) In Process Unspecified. EDMS 09:55 Primary Nurse role handed off by Dick Gonzalez, RN bp 09:55 Son Garcia, RN is Primary Nurse. bp 10:25 Dick Gonzalez, RN is Primary Nurse. jd3 10:48 Otto Perez MD is Referral Physician. rn 11:32 No provider procedures requiring assistance completed. IV discontinued, intact, jd3 bleeding controlled, No redness/swelling at site. Pressure dressing applied. Administered Medications: 08:16 Drug: Zofran (Ondansetron) 4 mg Route: IVP; Site: right forearm; tw2 09:00 Follow up: Response: No adverse reaction jd3 08:18 Drug: Demerol (meperidine) 25 mg {Note: RASS 0.} Route: IVP; Site: right forearm; tw2 09:00 Follow up: Response: No adverse reaction; RASS: Alert and Calm (0) jd3 10:33 Drug: Demerol (meperidine) 25 mg Route: IVP; Site: right forearm; jd3 11:33 Follow up: Response: No adverse reaction; RASS: Alert and Calm (0) jd3 Outcome: 10:50 Discharge ordered by . angel 11:32 Discharged to home via wheelchair, with family. jd3 11:32 Condition: stable 11:32 Discharge instructions given to patient, Instructed on discharge instructions, follow up and referral plans. medication usage, Demonstrated understanding of instructions, follow-up care, medications, Prescriptions given X 2. 11:33 Patient left the ED. jd3 Signatures: Dispatcher [employer] EDMS Sunil Parry MD MD rn Wise, Tara, RN RN [address] [facility] Dick Gonzalez RN RN jSon Myles RN RN bp Corrections: (The following items were deleted from the chart) 10:12 10:00 Reassessment: Patient appears in no apparent distress at this time. No changes bp from previously documented assessment. RECD REPORT FROM ARUN ORTIZ. 65YO WF P/W SYNCOPE AND N/V. bp 10:33 10:33 Demerol (meperidine) 25 mg IVP in right hand jd3 jd3
--- NOTE | 2021-01-07 10:51 | EDPHYS ---
Physician Documentation [facility] Name: Dary Michaud Age: 65 yrs Sex: Female : 1955 Arrival Date: 01/07/2021 Time: 07:59 Bed 7 Private MD: ED Physician Sunil Parry HPI: 01/07 10:41 This 65 yrs old Female presents to ER via EMS with complaints of Syncope, rn Nausea/Vomiting. 10:41 The patient has experienced syncope. Onset: The symptoms/episode began/occurred just rn prior to arrival. Duration: This was a single episode. Associated injury: Back:. Associated signs and symptoms: Pertinent positives: back pain, confusion, Pertinent negatives: abdominal pain, headache, seizure. Current symptoms: confusion. The patient has experienced similar episodes in the past. Per EMS, patient with syncopal episode at home, while on toilet, fell to ground, reports only back pain. reports multiple falls and breaks 2/2 osteoporosis, and has hx of hypoglycemic episodes. Has passed out and fallen multiple times. Did not witness any seizure activity. No fever, + mild cough over last 4 days. No abd pain. No extremity pain.. Historical: - Allergies: 08:01 PENICILLINS; tw2 - Home Meds: 08:01 amlodipine 5 mg tab 1 tab once daily [Active]; levothyroxine oral [Active]; tw2 losartan-hydrochlorothiazide 100-12.5 mg Oral tab once daily [Active]; - PMHx: 08:01 GERD; Hypertension; Hypothyroidism; tw2 - Immunization history:: Adult Immunizations. - Social history:: Smoking status: . - Family history:: not pertinent. - Hospitalizations: : No recent hospitalization is reported. ROS: 10:41 Constitutional: Negative for fever, chills, and weight loss, Eyes: Negative for injury, rn pain, redness, and discharge, Neck: Negative for injury, pain, and swelling, Cardiovascular: Negative for chest pain, palpitations, and edema, Respiratory: + cough, neg for sob Abdomen/GI: Negative for abdominal pain, diarrhea, and constipation, Back: + mid back pain : Negative for injury, bleeding, discharge, and swelling, MS/Extremity: Negative for injury and deformity, Skin: Negative for injury, rash, and discoloration, Neuro: Negative for headache, weakness, numbness, tingling, and seizure. Exam: 10:41 Constitutional: This is a well developed, well nourished patient who is awake, alert, rn and in no acute distress. Head/Face: Normocephalic, + mild tenderness left cheek. No trismus. Eyes: Pupils equal round and reactive to light, extra-ocular motions intact. Lids and lashes normal. Conjunctiva and sclera are non-icteric and not injected. Cornea within normal limits. Periorbital areas with no swelling, redness, or edema. ENT: MMM Neck: NO midline tenderness Chest/axilla: Normal chest wall appearance and motion. Nontender with no deformity. No lesions are appreciated. Cardiovascular: Regular rate and rhythm. No pulse deficits. Respiratory: No increased work of breathing, no retractions or nasal flaring. Abdomen/GI: soft, non-tender Back: + mid/upper thoracic spinal tenderness tenderness Skin: Warm, dry MS/ Extremity: Pulses equal, no cyanosis. Neuro: Awake and alert, GCS 15, oriented to person, place, time, and situation. Cranial nerves II-XII grossly intact. Motor strength 5/5 in all extremities. Sensory grossly intact. Vital Signs: 08:04 BP 141 / 90; Pulse 64; Resp 20 S; Temp 97.9(TE); Pulse Ox 97% on R/A; Weight 74.84 kg jd3 (R); Height 5 ft. 10 in. (177.80 cm) (R); Pain 9/10; 09:07 BP 126 / 80; Pulse 61; Resp 17; Pulse Ox 95% on R/A; Pain 6/10; tw2 10:11 BP 134 / 82; Pulse 67; Resp 17 S; Pulse Ox 97% on R/A; Pain 6/10; jd3 08:04 Body Mass Index 23.67 (74.84 kg, 177.80 cm) jd3 MDM: 08:08 Patient medically screened. rn 10:41 Differential Diagnosis: cardiac arrhythmia, idiopathic syncope, vasovagal episode, rn dehydration, hypoglycemia, spinal fracture, contusion, concussion. Data reviewed: vital signs, nurses notes, lab test result(s), EKG, radiologic studies, CT scan, plain films, and as a result, I will discharge patient. Counseling: I had a detailed discussion with the patient and/or guardian regarding: the historical points, exam findings, and any diagnostic results supporting the discharge/admit diagnosis, lab results, radiology results, the need for outpatient follow up, to return to the emergency department if symptoms worsen or persist or if there are any questions or concerns that arise at home. Response to treatment: the patient's symptoms have markedly improved after treatment, and as a result, I will discharge patient. Special discussion: I discussed with the patient/guardian in detail that at this point there is no indication for admission to the hospital. It is understood, however, that if the symptoms persist or worsen the patient needs to return immediately for re-evaluation. Based on the history and exam findings, there is no indication for further emergent testing or inpatient evaluation. I discussed with the patient/guardian the need to see the back specialist for further evaluation of the symptoms. I discussed with the patient/guardian the need to see the oral maxillofacial surgeon for further evaluation of the symptoms. ED course: Pt much better, back to baseline, 60% T3 compression fracture without neurological findings, avulsion fracture left mandibular coronoid, wants to go home, severe osteoporosis with multiple fractures. Will have her f/u with OMFS and spine for further recs and possible back brace. Return precautions given. Will place on abx given CXR finding of possible left pneumonia and cough for 4 days. . 01/07 08:11 Order name: UDS 01/07 08:11 Order name: Basic Metabolic Panel; Complete Time: :01/07 08:11 Order name: CBC with Diff; Complete Time: :01/07 08:11 Order name: Hepatic Function; Complete Time: :01/07 08:11 Order name: Lipase; Complete Time: :01/07 08:11 Order name: Protime (+inr); Complete Time: :01/07 08:11 Order name: CT Head C Spine; Complete Time: :01/07 08:11 Order name: Ptt, Activated; Complete Time: :01/07 08:11 Order name: Troponin (emerg Dept Use Only); Complete Time: :01/07 08:11 Order name: XRAY Chest (1 view); Complete Time: :01/07 08:11 Order name: CT Thoracic Spine Wo Cont; Complete Time: 09:11 rn 01/07 08:11 Order name: CT Lumbar Spine Wo Con; Complete Time: 09:11 rn 01/07 08:21 Order name: Glucose, Ancillary Testing; Complete Time: 09:11 EDMS 01/07 08:11 Order name: EKG; Complete Time: 08:11 rn 01/07 08:11 Order name: Cardiac monitoring; Complete Time: 08:12 rn 01/07 08:11 Order name: EKG - Nurse/Tech; Complete Time: 08:13 rn 01/07 08:11 Order name: IV Saline Lock; Complete Time: 08:12 rn 01/07 08:11 Order name: Labs collected and sent; Complete Time: 08:12 rn 01/07 08:11 Order name: O2 Per Protocol; Complete Time: 08:12 rn 01/07 08:11 Order name: O2 Sat Monitoring; Complete Time: 08:12 rn 01/07 08:11 Order name: Glucose Level; Complete Time: 08:11 rn Administered Medications: 08:16 Drug: Zofran (Ondansetron) 4 mg Route: IVP; Site: right forearm; tw2 09:00 Follow up: Response: No adverse reaction jd3 08:18 Drug: Demerol (meperidine) 25 mg {Note: RASS 0.} Route: IVP; Site: right forearm; tw2 09:00 Follow up: Response: No adverse reaction; RASS: Alert and Calm (0) jd3 10:33 Drug: Demerol (meperidine) 25 mg Route: IVP; Site: right forearm; jd3 11:33 Follow up: Response: No adverse reaction; RASS: Alert and Calm (0) jd3 Disposition: 01/07/21 10:50 Discharged to Home. Impression: Wedge compression fracture of third thoracic vertebra, Avulsion fracture of left mandible, Syncope and collapse, Pneumonia, unspecified organism. - Condition is Stable. - Discharge Instructions: Spinal Compression Fracture, Mandibular Fracture, Community-Acquired Pneumonia, Adult, Syncope. - Prescriptions for Tylenol- Codeine #3 300-30 mg Oral Tablet - take 1 tablet by ORAL route every 4-6 hours As needed; 15 tablet. Zithromax Z- Toñito 250 mg Oral Tablet - take 1 tablet by ORAL route as directed for 5 days Day 1 - take two (2) tablets one time. Day 2, 3, 4 , 5 take one (1) tablet once daily.; 6 tablet. - Medication Reconciliation Form, Thank You Letter, Antibiotic Education, Prescription Opioid Use, Work release form form. - Follow up: Otto Perez MD; When: 1 week; Reason: Recheck today's complaints, Re-evaluation by your physician. - Problem is new. - Symptoms have improved. Signatures: Dispatcher [employer] EDOH Sunil Parry MD MD rn Wise, Tara, RN RN tw2 Dick Gonzalez RN RN jd3 Corrections: (The following items were deleted from the chart) 11:33 10:50 01/07/2021 10:50 Discharged to Home. Impression: Wedge compression fracture of jd3 third thoracic vertebra; Avulsion fracture of left mandible; Syncope and collapse; Pneumonia, unspecified organism. Condition is Stable. Forms are Work release form, Medication Reconciliation Form, Thank You Letter, Antibiotic Education, Prescription Opioid Use. Follow up: Otto Perez; When: 1 week; Reason: Recheck today's complaints, Re-evaluation by your physician. Problem is new. Symptoms have improved. rn
[2021-01-07 11:39] VITALS: TEMP 97.9
[2021-01-07 11:42] VITALS: BP 134/82; O2SAT 97
--- NOTE | 2021-01-07 17:41 | EKG ---
Test Date: 2021-01-07 Test Time: 08:14:30 Customer Logistics Manager: [place] MEASUREMENT RESULTS: Intervals: Rate: 61 AR: 186 QRSD: 116 QT: 476 QTc: 479 [place]: P: 42 AR: 186 QRS: 37 T: 41 INTERPRETIVE STATEMENTS: Normal sinus rhythm Right bundle branch block Abnormal ECG Compared to ECG 12/20/2003 11:04:00 Right bundle-branch block now present Sinus bradycardia no longer present Incomplete right bundle-branch block no longer present T-wave abnormality no longer present Electronically Signed On 01-07-21 17:40:03 CDT by Julián Grant
== END 2021-01-07 11:33 | disposition home or self-care (01) ==
LOC: ER 07:57
DX: S22.030A Wedge compression fracture of third thoracic vertebra, initial encounter for closed fracture (principal); S02.609A Fracture of mandible, unspecified, initial encounter for closed fracture; J18.9 Pneumonia, unspecified organism; W18.11XA Fall from or off toilet without subsequent striking against object, initial encounter; Y92.002 Bathroom of unspecified non-institutional (private) residence as the place of occurrence of the external cause; I10 Essential (primary) hypertension; E03.9 Hypothyroidism, unspecified; Z88.0 Allergy status to penicillin; Z91.81 History of falling
CPT/HCPCS: 93005; 85025; 80048; 36415; 85610; 82947; 80076; 85730; 84484; 83690; 72131; 70450; 72125; 72128; 71045; J2175 ×2; J2405; 96374; 96375; 99284

== ENCOUNTER 2023-06-04 11:25 | Inpatient (IN) | payer OTHER ==
--- OUTSIDE RECORDS SUMMARY | 2023-06-04 11:35 | XMS REPORT | Continuity of Care Document ---
:1955 Author Organization [facility] t Address [address] [place] [address] [address] [place] [address] Care Team Providers Name Role Phone Rashaad Lockett Primary Care Physician CALEB DENNISON Attending Clinician Unavailable Brian Shea Attending Clinician Unavailable BREANNE Attending Clinician Unavailable Rashaad Lockett Attending Clinician [phone] Jhon MACDONALD, Renae Ordaz Attending Clinician Cedrick Otero Attending Clinician Unavailable Jerrod Rodriguez MD Attending Clinician JERROD RODRIGUEZ Attending Clinician Unavailable JERAMY JIMENES Attending Clinician Unavailable Doctor Unassigned, [place] Attending Clinician Unavailable Neftali Everett Attending Clinician NEFTALI EVERETT Attending Clinician Unavailable Rosamaria Mcfarland RN Attending Clinician Unavailable Shilpa Reyes Attending Clinician Shilpa Stanley Attending Clinician Bassam Calderon Attending Clinician Allegra Santos Attending Clinician 2, [facility] Attending Clinician Unavailable Mir Jacobs MD Attending Clinician MIR JACOBS Attending Clinician Unavailable RASHAAD LOCKETT Admitting Clinician Unavailable BREANNE Admitting Clinician Unavailable Caleb Dennison Admitting Clinician CALEB DENNISON Admitting Clinician Unavailable Andre Rausch Admitting Clinician Payers Payer Name Policy Type Policy Number Effective Date Expiration Date Lacho obrien [facility] [id number] 2021 2021 MEDICARE SUPPLEMENT 00:00:00 00:00:00 MEDICARE PART A AND [id number] 2020 B 00:00:00 AETNA OPEN ACCESS [id number] 2020 ELECT CHOICE EPO 00:00:00 MEDICARE B-[place]: [id number] 2020 [employer] 00:00:00 [employer] [id number] INSURANCE COMPANY - PLAN F (MEDICARE SUPPLEMENT) MEDICARE PART A [id number] 2020 00:00:00 [employer] [id number] 2020 00:00:00 AETNA [id number] 2020 2021 00:00:00 00:00:00 AETNA (EPO) [id number] 2020 00:00:00 AETNA O [id number] 2020 00:00:00 [facility] [id number] 2018 2020 00:00:00 00:00:00 Problems Condition Condition Condition Status Onset Resolution Last Treating Co mments Source Name Details Category Date Date Treatment Clinician Date Vertebral Vertebral Problem Active 2022-08 Swe lani osteoporos Osteoporos 0-05 Co mmuni is is 00:00: ty 00 Hospita l Clinics Mixed Mixed Problem Active [place] anxiety Anxiety 8-18 Communi and and 00:00: ty depressive Depressive 00 Ho spita disorder Disorder l Clinics Ascending Ascending Disease Recurre 2021-[address] aortic aortic nce 2[facility]13 [facility] aneurysm aneurysm 00:[facility]: Medica l 00 Center Syncope Syncope Disease Active 2020-[address] [facility] [facility] Center Palpitatio Palpitatio Disease Active 2020-[address] ns ns 2-13 [facility] Hypertensi Hypertensi Disease Active 2020-[address] on on 2-13 [facility] Center Hypothyroi Hypothyroi Disease Active 2020-[address] d d 2-13 [facility] Sleep Sleep Disease Active 2020-[address] [facility] apnea apnea 2-13 [facility] 00[facility] 00 Center Osteoporos Osteoporos Disease Active 2020-[address] is is 2-13 [facility] 00:[facility] 00 Center GERD GERD Disease Active 2020-[address] [facility] (gastroeso (gastroeso 2-13 Lynda kes phageal phageal 00:00: Medical reflux reflux 00 Center disease) disease) Chest Chest Disease Active 2020-[address] [facility] pain, pain, 2-13 [facility] atypical atypical 00:00: Medica l 00 [place] Supraventr Supraventr Problem Active 2020-08 S weeny icular icular 0-28 Communi tachycardi Tachycardi 00:00: ty a a [facility] Aneurysm Aneurysm Problem Active 2020-08 [facility] of of 0-28 Communi thoracic Thoracic 00:00: ty [facility] PA[facility] Diagnosis Active 2020-082021-08-14 Mem oria Active 0 14:55:00 l 06/10/2021 00:00: Bruno ACUNA [address] [id number] - [id number] Diagnosis Active 2021-06-04 Memoria DISPL - DISPL 04-16 03:57:00 l SUPRCNDL SUPRCNDL 00:01: Bruno nagel FX W FX W 00 INTRCNDL INTRCNDL Active 04/16/2021 Jesus Angela Sachi [facility] Displaced Displaced Disease Active [facility] supracondy supracondy 8 He alth lar lar 00:00: fracture fracture 00 with with intracondy intracondy lar lar extension extension of lower of lower end of end of left left femur, femur, initial initial encounter encounter for closed for closed fracture fracture Osteoporos Osteoporos Problem Active S rica is is 6-01 Communi 00:00: ty 00 Hospita Clinics Syncope Syncope Problem Active [place] 5-18 Communi 00:00: ty 00 Hospita Clinics Compressio Compressio Problem Active S rica n fracture n Fracture 5-18 Co mmuni of of 00:00: ty vertebral Vertebral 00 Hosp real column Column l Clinics Hyponatrem Hyponatrem Problem Active S rica ia ia 5-18 Communi 00:00: ty 00 Hospita Clinics Anemia Anemia Problem Active [place] 5-18 [facility]i 00:[facility]: [facility] Hyperchole Hyperchole Problem Active S rica sterolemia sterolemia 1-15 Co mmuni 00:00: ty 00 Hospita Clinics FEMUR FX FEMUR FX Diagnosis Active 2019-082021-04-07 Memoria Active 10-23 09:11:00 l 08/22/2020 00:00: Bruno nagel [address] DISTAL DISTAL Diagnosis Active 2019-082020-08-22 Me moria FEMUR FX FEMUR FX 10-23 01:50:00 l Active 00:00: Julio César 08/22/2020 00 [facility] Hypothyroi Hypothyroi Problem Active 2018-08 S rica dism dism - Communi 00:00: ty 00 Hospita Clinics Hypertensi Hypertensi Problem Active 2018-08 S rica ve ve - Communi disorder Disorder 00:00: ty 00 Hospita Clinics Gastroesop Gastroesop Problem Active 2018-08 S rica hageal hageal - Communi reflux Reflux 00:00: ty disease Disease 00 Hospita Clinics Low back Low Back Problem Active 2018-08 [place]ween y pain Pain - Communi 00:00: ty 00 [facility] Clinics No known No known Disease Unive rs active active ity of problems problems [facility] Disease of Disease Problem Active 2021-07-19 Memoria thyroid of thyroid 23:47:05 l gland gland Julio César (disorder) (disorder) Active Problem 07/19/2021 [facility] Obstructiv Obstructi Problem Active 2021-07-19 Memoria e sleep ve sleep 23:47:05 l apnea apnea Julio César syndrome syndrome (disorder) (disorder) Active Problem 07/19/2021 pt uses cpap at night [facility] UNSP UNSP Diagnosis Active 2021-04-07 Mem oria FRACTURE FRACTURE 09:11:00 l OF UNSP OF UNSP Julio César FEMUR, FEMUR, INIT INIT ENCNTR ENCNTR Active [facility] Aneurysm Aneurysm Disease Recurre Overview: [facility] nce Form[facility]in [facility] g of this Medical note Center might be different from the original. ascending Acquired Acquired Problem Active Commo n hypothyroi hypothyroi Sp dread dism dism [facility] Other long Other long Problem Active C ommon term term Spirit (current) (current) - [facility] I drug drug St therapy therapy [facility] Chronic Chronic Problem Active Common UTI UTI [facility] Stress Stress Problem Active Common incontinen incontinen Sp dread ce of ce of [facility] urine urine [facility] Hypertensi Hypertensi Problem Active C ommon on, on, Spirit unspecifie unspecifie [facility] d type d type [facility] GERD GERD Problem Active Common without without Spirit esophagiti esophagiti - [facility] s s [facility] Incontinen Incontinen Problem Active C ommon ce of ce of Spirit urine in urine in [facility] female female [facility] Chronic Chronic Problem Active Common kidney kidney Spirit disease, disease, - [facility] stage [address] (mild) (mild) [facility] Liver mass Liver mass Problem Active C ommon [facility] Hyperchole Hyperchole Problem Active C ommon sterolemia sterolemia Sp dread [facility] Nodular Nodular Problem Active Common hyperplasi hyperplasi Sp dread a of liver a of liver [facility] Primary Primary Problem Active 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 [facility] left knee left knee [facility] Allergies, Adverse Reactions, Alerts Allergy Allergy Status Severity Reaction(s) Onset Inactive Treating Comm ents Source Name Type Date Date Clinician Penicill Propensi Active [facility] ins ty to 04-01 Health adverse 00:00: reaction 00 s Codeine Drug Active Palpitations 2019-[address] Allergy 10-22 reaction( [facility] 00:00: s): Medical 00 Headache, Center Other - See comments Penicill DA Active U [facility] ins 2 00:00: Orthope 00 dic Hospita l Penicill DA Active U UNKNOWN, [facility] ins CHILDHOOD 10-17 00:00: Orthope 00 dic Hospita l Penicill DA Active U [facility] ins 09-25 00:00: Orthope 00 dic Hospita l nickel DA Active MO [facility] 09-25 00:00: Orthope 00 dic Hospita l Penicill DA Active U UNKNOWN [facility] ins 09-25 00:00: Orthope 00 dic Hospita l nickel DA Active MO [facility] 09-25 00:00: Orthope 00 dic Hospita l Penicill Propensi Active Unknown - Uni vers ins ty to See comments 3- ity of adverse 00:00: [place] reaction 00 Medical s Branch Penicill Propensi Active Unknown - Uni vers ins ty to See comments 3-27 ity of adverse 00:00: [place] reaction 00 Medical s Branch Penicill Drug Active Other [facility] ins Allergy 01-30 reaction( [facility] 00:00: s): Other Medical 00 (see Center comments) , Unknown - See commentsA s infant penicill Adverse Active Info Not Commo n in Reaction Available [facility] penicill penicill Active Memori a ins ins l [place] NKFA NKFA Active Memoria yue Angela codeine codeine Active Memoria l Julio César Family History Family Member Diagnosis Comments Start Date Stop Date Source Natural brother Unremarkable [facility] Natural father [facility] Natural mother Cancer [facility] Natural sister Cancer [facility] Social History Social Habit Start Date Stop Date Quantity Comments Source Sexual orientation Univer [facility] History of tobacco Current smoker I [facility] use [place] Exposure to Not sure [facility] SARS-CoV-2 (event) Alcohol intake 2021-08-13 2021-08-13 Current drinker [facility] 00:[facility] 00:00:00 of alcohol [place] (finding) Cigarettes smoked 2021-08-11 2021-08-11 [facility] current (pack per 00:00:00 00:00:00 Medical Center day) - Reported Cigarette 2021-08-11 2021-08-[address] [facility] [address] [facility] pack-years 00:00:00 00:00:00 Medical Center Tobacco use and 2021-08-11 2021-08-11 Smokeless GENIE Trinidad exposure 00:00:00 00:00:00 tobacco non-user Medical Center Social History 2021-07-09 2021-07-09 [facility] 17:51:29 17:51:29 Sex [birth year] GENIE Trinidad 00:00:00 00:00:00 Medical Center Smoking Status Start Date Stop Date Source Tobacco smoking [facility] consumption unknown Ex-smoker 2021-08-11 00:00:00 2021-08-11 [facility] [address] [facility] Medical 00:00:00 [place] Medications Ordered Filled Start Stop Current Ordering Indication Dosage Frequency Signature Comments Components Source Medication Medication Date Date Medication? Clinician (SIG) Name Name meloxicam 2021- No [id number] 7.5mg QD Take 1 [facility] (Mobic) 7.5 3-09 03- tablet Healt h MG tablet 00:00: 04:59 (7.5 mg 00 :00 total) by mouth 1 (one) time each day. dexAMETHaso 2020-08- No [id number] 2mg Take 1 Univers ne 2 mg 2-10 08-09 tablet by ity of tablet 00:00: 05:59 mouth once [place] 00 :[place] now for 1 Medical dose. Take Branch between 11pm and midnight losartan-hy 2020-08 Yes 1{tbl} QD Take [address] droCHLOROth 1-21 tablet by Alana es iazide 00:00: mouth Medical (HYZAAR) 00 daily. Center 100-25 mg per tablet levothyroxi 2020-08 Yes 75ug QD Take [address] ne 1-21 mcg by [place] (SYNTHROID, 00:00: mouth Medic al LEVOTHROID) 00 daily. Center 75 MCG tablet amLODIPine 2020-08 Yes 10mg QD Take [address] (NORVASC) 1-21 by mouth [facility] 10 MG 00:00: nightly. Medical tablet 00 Center metoprolol 2020-08 Yes 50mg Q.5D Take [address] tartrate 1-21 by mouth 2 [facility] (LOPRESSOR) 00:00: (two) Medic al 50 MG 00 times Center tablet daily. atorvastati 2020-08 Yes 40mg QD Take [address] n (LIPITOR) 1-21 by mouth Luke s 40 MG 00:00: nightly. Medical tablet 00 [place] losartan-hy 2020-08 Yes Univer s drochloroth 1-21 ity of iazide 00:00: [place] 100-25 mg 00 Medical per tablet Branch metoprolol 2020-08 Yes Univers tartrate 50 1-21 ity of mg tablet 00:00: [address] levothyroxi 2020-08 Yes Univer s ne 75 mcg 1-21 ity of tablet 00:00: [address] amLODIPine 2020-08 Yes Univers 10 mg 1-21 ity of tablet 00:00: [address] atorvastati 2020-08 Yes Univer s n 40 mg 1-21 ity of tablet 00:00: [address] losartan-hy 2020-08 Yes Univer s drochloroth 1-21 ity of iazide 00:00: [place] 100-25 mg 00 Medical per tablet Branch metoprolol 2020-08 Yes Univers tartrate 50 1-21 ity of mg tablet 00:00: [address] levothyroxi 2020-08 Yes Univer s ne 75 mcg 1-21 ity of tablet 00:00: [address] amLODIPine 2020-08 Yes Univers 10 mg 1-21 ity of tablet 00:00: [address] atorvastati 2020-08 Yes Univer s n 40 mg 1-21 ity of tablet 00:00: [address] sennosides, 2020-08 Yes 17.2 mg = M emoria DETENTION 8.6 MG 1-18 2 tab, PO, l Oral Tablet 21:28: Bedtime, X [place] 00 5 day, # 10 tab, 0 Refill(s), Pharmacy: [id number], 177.8, cm, 07/14/21 19:22:00 [place], Height, 75, kg, 07/16/21 13:25:00 [place], Weight Oxycodone 2020-08 Yes 5 mg = 1 Eleazar patricia Hydrochlori 1-18 tab, PO, l de 5 MG 21:27: Q6H, PRN Bruno n Oral Tablet 00 Pain Score 7-10, X 5 day, # 20 tab, 0 Refill(s), Pharmacy: [facility] #[id number], 177.8, cm, 07/14/21 19:22:00 G[place] LAY[place], Height, 75, kg, 07/16/21 13:25:00 [place], Weight ferrous 2020-08 Yes 325 mg = 1 Eleazar patricia sulfate 325 1-18 tab, PO, l mg oral 20:59: Daily, december catarino enteric 00 take with coated food and tablet orange juice to minimize abdominal discomfort , # 14 tab, 0 Refill(s), Pharmacy: [facility] #[id number], 177.8, cm, 07/14/21 19:22:00 GOLD LAYER, Height, 75, kg, 07/16/21 13:25:00 [place], Weight gabapentin 2020-08 Yes 300 mg = 1 M emoria 300 MG Oral 1-18 cap, PO, l Capsule 20:40: Q8Hnow, # Hillary nn 00 15 cap, 0 Refill(s), Pharmacy: [facility] #[id number], 177.8, cm, 07/14/21 19:22:00 GOLD LAY[place], Height, 75, kg, 07/16/21 13:25:00 [place], Weight acetaminoph 2020-08 Yes 1,000 mg = Memoria en 500 mg 1-18 2 tab, PO, l oral 20:39: Q6Hnow, X Julio César tablet. 00 7 day, # 28 tab, 0 Refill(s), Pharmacy: [id number], 177.8, cm, 07/14/21 19:22:00 GOLD LAYER, Height, 75, kg, 07/16/21 13:25:00 [place], Weight enoxaparin 2020-08 Yes 40 mg = Eleazar patricia 40 mg/0.4 1-18 0.4 mL, l mL 20:39: SUB-Q, [place] subcutaneou 00 [id number], s solution X 15 day, # 15 ea, 0 Refill(s), Pharmacy: [facility] #[id number], 177.8, cm, 07/14/21 19:22:00 GOLD LAYER, Height, 75, kg, 07/16/21 13:25:00 G[place]AY[place], Weight alendronate 2020-08 Yes 70mg Q7D Take [address] (FOSAMAX) 1-18 by mouth [facility] 70 MG 00:00: once a Medical tablet 00 week. Center oxyCODONE 5 2020-08 Yes Univer s mg 1-18 ity of immediate 00:00: [place] release 00 Medical tablet Branch alendronate 2020-08 Yes Univer s 70 mg 1-18 ity of tablet 00:00: [place] 00 Medical Branch ferrous 2020-08 Yes Univers sulfate 325 1-18 ity of mg (65 mg 00:00: [place] iron) EC 00 Medical tablet Branch oxyCODONE 5 2020-08 Yes Univer s mg 1-18 ity of immediate 00:00: [place] release 00 Medical tablet Branch alendronate 2020-08 Yes Univer s 70 mg 1-18 ity of tablet 00:00: [place] 00 Medical Branch ferrous 2020-08 Yes Univers sulfate 325 1-18 ity of mg (65 mg 00:00: [place] iron) EC 00 Medical tablet Branch Lasix 2020-08 No Notes: Memoria 1-17 (Same as: l 16:25: Lasix) Sodium 2020-08 No 1 gm, 1 Memoria Chloride 1-17 tab, l 15:00: Route: PO, Drug form: TAB, Daily, Dosing Weight 75, kg, Start date: 07/16/21 9:00:00 [place], Duration: 30 day, Stop date: 08/14/21 9:00:00 [place], 0 NS 1,000 mL 2020-08 No 1,000 mL, M emoria 1-16 Rate: 60 l 21:53: ml/hr, Infuse over: 16.7 hr, Route: IV, Dosing Weight 75 kg, Total Volume: 1,000, Start date: 07/15/21 15:53:00 G[place]AY[place], Duration: 30 day, Stop date: 08/14/21 15:52:00 [place], BSA: 1.93 m2, 0 atorvastati 2020-08 Yes 40 mg = 1 M emoria n 40 mg 1-16 tab, PO, l oral tablet 17:36: Bedtime, 0 Julio César 00 Refill(s) metoprolol 2020-08 Yes 50 mg = 1 Me moria tartrate 50 1-16 tab, PO, l mg oral 17:35: BID, WITH Hillary nn tablet 00 MEALS, # 60 tab, 0 Refill(s) amLODIPine 2020-08 Yes 10 mg = 1 Me moria 10 mg oral 1-16 tab, PO, l tablet 17:34: QPM, # 30 Bruno n 00 tab, 0 Refill(s) Hydrochloro 2020-08 Yes 1 tab, PO, Memoria thiazide 25 1-16 Daily, # l MG / 17:34: 30 tab, 0 [place] Losartan 00 Refill(s) Potassium 100 MG Oral Tablet Alendronic 2020-08 Yes 70 mg = 1 Me moria acid 70 MG 1-16 tab, PO, l Oral Tablet 17:33: QSun, # 4 H ermann 00 tab, 0 Refill(s) levothyroxi 2020-08 Yes 75 Memori a ne 75 mcg 1-16 microgram l (0.075 mg) 17:31: = 1 tab, Her bill oral tablet 00 PO, Daily, # 30 tab, 0 Refill(s) Zofran 2020-08 No 4 mg, Memoria -16 Route: l 15:25: IVP, Drug form: INJ, Q8H, Dosing Weight 75, kg, PRN Nausea, Start date: 07/15/21 9:25:00 [place], Duration: 30 day, Stop date: 08/14/21 9:24:00 [place] Ciprofloxac 2020-08 No Notes: Do M emoria in - not l 15:24: refrigerat Julio César 00 e POLYETHYLEN 2020-08 No Notes: Eleazar patricia E GLYCOL 1-16 Dissolve l 3350 15:00: in 8 oz of water or juice. (Same as: Miralax) Losartan 2020-08 No Notes: Memoria 1-16 (Same as: l 15:00: Cozaar) [place] 00 Synthroid 2020-08 No Notes: Memori a 1-16 Take 1 l 12:30: hour Julio César 00 before or 2 hours after meal; Enteral feeds may interefere with the absorption of this medication . (Same as:Synthro id, Levothroid ) sennosides, 2020-08 No Notes: Eleazar patricia DETENTION 1-16 (Same as: l 03:00: Senokot) Julio César 00 remove 2020-08 No Notes: Memoria patch 1-16 Remove l 03:00: patch 12 [place] 00 hours after applicatio n each day. Docusate 2020-08 No Notes: Memoria 1-15 (Same as: l 23:00: Colace) [place] (Do Not Crush) Amlodipine 2020-08 No Notes: Memor ia 1-15 (Same as: l 23:00: Norvasc) metoprolol 2020-08 No Notes: Memor ia tartrate 1-15 (Same as: l 23:00: Lopressor) Ancef 2020-08 No Notes: Memoria 1-15 (Same as l 22:00: Ancef) Lidocaine 2020-08 No Notes: Memori a 0.04 MG/MG 1-15 Apply only l Medicated 20:01: once for Herm catarino Patch 00 up to 12 hours in a 24-hour period (12 hours on and 12 hours off). (Same as: Aspercreme Lidocaine Patch) "Remove old patch before applicatio n of new patch" Acetaminoph 2020-08 No Notes: Max Memoria en 1-15 acetaminop l 20:00: hen 4000 Julio César 00 mg/day (4 gm/day). (Same as: Tylenol Extra Strength) gabapentin 2020-08 No Notes: Memor ia 1-15 (Same as: l 20:00: Neurontin) Lovenox 2020-08 No Notes: Memoria 1-15 (Same as: l 20:00: Lovenox) Ancef 2020-08 No 1 gm, Memoria 1-15 Route: l 20:00: IVPB, ABXQ8H, Dosing Weight 76.5, kg, Start date: 07/14/21 14:00:00 [place], Duration: 3 doses or times, Stop date: 07/15/21 6:00:00 [place], ABX Indication : Surgical Prophylaxi s normal 2020-08 No 500 mL, Memoria saline 0.9% 1-15 500 ml/hr, l (Bolus) IV 19:56: Infuse Hillary Over: 1 hr, Route: IV, 500, Drug form: INJ, ONCE, Priority: STAT, Dosing Weight 76.5 kg, Start date: 07/14/21 13:56:00 [place]AY[place], Stop date: 07/14/21 13:56:00 [place], 0 Zofran 2020-08 No Notes: Memoria 1-15 (Same as: l 19:48: Zofran) MEDICATION WASTE Product Size: 4 mg Product Wasted: ___ mg Oxycodone 2020-08 No Notes: Memori a 1-15 (Same as: l 19:47: Roxicodone ) tizanidine 2020-08 No Notes: Memor ia 1-15 (Same As: l 19:47: Zanaflex) Dextrose 2020-08 No 12.5 gm, Memor ia 50% Syringe 1-15 25 mL, l (D50W) 19:45: Route: IVP, Drug Form: INJ, Dosing Weight 76.5, kg, PRN, PRN Blood Glucose Results, Start date: 07/14/21 13:45:00 [place], Duration: 30 day, Stop date: 08/13/21 13:44:00 [place]AY[place], 0 Glucagon 2020-08 No 1 mg, Memoria 1-15 Route: IM, l 19:45: Drug form: PDR/INJ, PRN, Dosing Weight 76.5, kg, PRN Blood Glucose Results, Start date: 07/14/21 13:45:00 [place]AY[place], Duration: 30 day, Stop date: 08/13/21 13:44:00 [place], 0 Ondansetron 2020-08 No 4 mg, Memor ia 1-15 Route: l 19:45: IVP, Q8H, Dosing Weight 76.5, kg, PRN Nausea & Vomiting, Start date: 07/14/21 13:45:00 [place], Duration: 30 day, Stop date: 08/13/21 13:44:00 [place] Melatonin 2020-08 No Notes: Memori a 1-15 (Same as: l 19:45: Melatonin) Acetaminoph 2020-08 No Notes: Max Memoria en 1-15 acetaminop l 18:00: hen 4000 Julio César 00 mg/day (4 gm/day). (Same as: Tylenol Extra Strength) celecoxib 2020-08 No Notes: Memori a 1-15 NSAID. l 18:00: Please check indication . Not for seizure. (Same As: CeleBREX) Tramadol 2020-08 No Notes: Not Mem oria 1-15 to exceed l 17:33: 400mg/day. [place] 00 (Same As: Ultram) neostigmine 2020-08 No Route: IV, Memoria (ANES) 1-15 Drug form: l 15:54: INJ, ONCE, Stop date: 07/14/21 9:54:00 [place] ondansetron 2020-08 No Route: IV, Memoria (ANES) 1-15 Drug form: l 15:54: INJ, ONCE, Stop date: 07/14/21 9:54:00 [place] hydromorpho 2020-08 No Route: IV, Memoria ne (ANES) 1-15 Drug form: l 15:23: INJ, ONCE, Stop date: 07/14/21 9:23:00 [place] glycopyrrol 2020-08 No Route: IV, Memoria ate (ANES) 1-15 Drug form: l 15:18: INJ, ONCE, Stop date: 07/14/21 9:18:00 [place] ePHEDrine 2020-08 No Route: IV, Me moria (ANES) 1-15 Drug form: l 14:53: INJ, ONCE, Stop date: 07/14/21 8:53:00 [place] fentaNYL 2020-08 No Route: IV, Mem oria (ANES) 1-15 Drug form: l 14:37: INJ, ONCE, Stop date: 07/14/21 8:37:00 [place] lidocaine 2020-08 No Route: IV, Me moria (ANES) 1-15 Drug form: l 14:32: INJ, ONCE, Stop date: 07/14/21 8:32:00 [place] propofol 2020-08 No Route: IV, Mem oria (ANES) 1-15 Drug form: l 14:32: INJ, ONCE, Stop date: 07/14/21 8:32:00 [place] rocuronium 2020-08 No Route: IV, M emoria (ANES) 1-15 Drug form: l 14:32: INJ, ONCE, Stop date: 07/14/21 8:32:00 [place] dexamethaso 2020-08 No Route: IV, Memoria ne (ANES) 1-15 Drug form: l 14:27: INJ, ONCE, Stop date: 07/14/21 8:27:00 [place] ceFAZolin 2020-08 No Route: IV, Me moria (ANES) 1-15 Drug form: l 14:22: INJ, ONCE, Stop date: 07/14/21 8:22:00 [place] Hydralazine 2020-08 No Notes: Eleazar patricia 1-15 (Same as: l 14:06: Apresoline ) Push over 5 minutes Labetalol 2020-08 No 10 mg, 2 Eleazar patricia 1-15 mL, Route: l 14:06: IVP, Drug form: INJ, Q5Min, Dosing Weight 76.5, kg, PRN Elevated BP, Start date: 07/14/21 8:06:00 [place], Duration: 5 doses or times, Stop date: 07/15/21 0:00:00 [place], 0 Ibuprofen 2020-08 No Notes: Memori a 1-15 (Same as: l 14:06: Motrin) "Do Not Crush" Take with food. Oxycodone 2020-08 No Notes: Memori a Hydrochlori 1-15 (Same as: l de 5 MG 14:06: Roxicodone Herm catarino Oral Tablet ) Fentanyl 2020-08 No Notes: Memoria 1-15 (Same as: l 14:06: Sublimaze) Preservati ve free. Hydromorpho 2020-08 No Notes: Eleazar patricia ne 1-15 Same as l 14:06: Dilaudid Flumazenil 2020-08 No Notes: Memor ia 1-15 (Same as: l 14:06: Romazicon) Naloxone 2020-08 No Notes: Memoria 1-15 Same as l 14:06: Narcan Ondansetron 2020-08 No Notes: Eleazar patricia 15 (Same as: l 14:06: Zofran) Julio César 00 MEDICATION WASTE Product Size: 4 mg Product Wasted: ___ mg Promethazin 2020-08 No Notes: Do M emoria e 09-13 not give l 14:06: IV push. [place] 00 (Same as: Phenergan) Isolyte S 2020-08 No Route: IV, Me moria PH 7.4 15 Total l (ANES) 1000 13:30: Volume: Her bill mL 00 1,000, Start date: 07/14/21 7:30:00 GOLD LAYER, Stop date: 07/14/21 8:30:00 G[place]AY[place] Isolyte S 2020-08 No Notes: Memori a PH 7.4 09-13 (Same as: l 1,000 mL 11:56: Isolyte S Herm catarino 00 PH7.4, Normosol-R PH 7.4, Plasma-Lyt e A ) Acetaminoph 2020-08 No 1,000 mg, M emoria en 09-13 Route: PO, l 11:56: Drug form: [place] 00 TAB, PRE OP, Dosing Weight 75, kg, Priority: NOW, Start date: 07/14/21 5:56:00 G[place]AY[place], Duration: 1 doses or times metoprolol 2020-08 No 50 mg = 1 Me moria tartrate 50 1-10 tab, PO, l mg oral 17:45: BID, 0 Julio César tablet 00 Refill(s) Alendronate 2020-08 No PO, qWeek, Memoria 1-10 0 l 17:45: Refill(s) [place] 00 No known No No known [place] medications 8 medication He alth 13:38: s 05 No known No No known [place] medications 04-01 medication He alth 13:38: s 05 No known No No known [place] medications 04-01 medication He alth 13:38: s 05 No known No No known [place] medications 8 medication He alth 13:38: s 05 No known No No known [place] medications 8 medication He alth 13:38: s 05 No known 2021-0 No No known [place] medications 8-03 medication He alth 13:38: s 05 No known 2021-0 No No known UT medications 8-03 medication He alth 13:38: s 05 No known 2021-0 No No known [place] medications 8-03 medication He alth 13:38: s 05 No known 2021-0 No No known [place] medications 8-03 medication He alth 13:38: s 05 No known 2021-0 No No known [place] medications 8-03 medication He alth 13:38: s 05 No known 2021-0 No No known [place] medications 8-03 medication He alth 13:38: s 05 No known 2021-0 No No known [place] medications 8-03 medication He alth 13:38: s 05 No known 2021-0 No No known [place] medications 8-03 medication He alth 13:38: s 05 No known 2021-0 No No known [place] medications 8-03 medication He alth 13:38: s 05 No known 2021-0 No No known [place] medications 8-03 medication He alth 13:38: s 05 No known 2021-0 No No known [place] medications 8-03 medication He alth 13:38: s 05 No known 2021-0 No No known [place] medications 8-03 medication He alth 13:38: s 05 enoxaparin 2019-08 Yes 40 mg = Eleazar patricia 40 mg/0.4 2-31 0.4 mL, l mL 17:58: SUB-Q, Julio César subcutaneou 00 Q24H, X 21 s solution day, # 8 mL, 0 Refill(s), Pharm[facility]: [facility], 157.48, cm, 08/22/20 20:13:00 GOLD LAYER, Height, 75, kg, 08/22/20 20:13:00 GOLD LAYER, Weight tramadol 2019-08 Yes 50 mg = 1 Eleazar patricia hydrochlori 2-31 tab, PO, l de 50 MG 17:58: Q6H, X 5 Hillary nn Oral Tablet 00 day, # 15 tab, 0 Refill(s), Pharmacy: [facility], 157.48, cm, 08/22/20 20:13:00 GOLD LAYER, Height, 75, kg, 08/22/20 20:13:00 GOLD LAYER, Weight gabapentin 2019-08 Yes 300 mg = 1 M emoria 300 MG Oral 2-31 cap, PO, l Capsule 17:58: TID, # 90 Hillary nn 00 cap, 0 Refill(s), Pharmacy: [facility], 157.48, cm, 08/22/20 20:13:00 GOLD LAYER, Height, 75, kg, 08/22/20 20:13:00 GOLD LAYER, Weight Cefazolin 2019-08 No Notes: Memori a 2-30 (Same as l 22:00: Ancef) Versed 2019-08 No 1 mg, Memoria 2-30 Route: l 16:49: IVP, ONCE, Dosing Weight 75, kg, Start date: 08/28/20 10:49:00 GOLD LAYER, Stop date: 08/28/20 10:49:00 GOLD LAYER Phenergan 2019-08 No 6.25 mg, Eleazar patricia 2-30 Route: l 16:49: IVPB, ONCE, Dosing Weight 75, kg, Start date: 08/28/20 10:49:00 GOLD LAYER, Stop date: 08/28/20 10:49:00 GOLD LAYER glycopyrrol 2019-08 No Route: IV, Memoria ate (ANES) 2-30 Drug form: l 16:07: INJ, ONCE, Stop date: 08/28/20 10:07:00 GOLD LAYER neostigmine 2019-08 No Route: IV, Memoria (ANES) 2-30 Drug form: l 16:07: INJ, ONCE, Stop date: 08/28/20 10:07:00 GOLD LAYER Hydromorpho 2019-08 No Notes: Eleazar patricia ne 2-30 Same as l 15:46: Dilaudid Flumazenil 2019-08 No Notes: Memor ia 2-30 (Same as: l 15:46: Romazicon) Naloxone 2019-08 No Notes: Memoria 2-30 Same as l 15:46: Narcan Ondansetron 2019-08 No Notes: Eleazar patricia 2-30 (Same as: l 15:46: Zofran) MEDICATION WASTE Product Size: 4 mg Product Wasted: ___ mg ondansetron 2019-08 No Route: IV, Memoria (ANES) 2-30 Drug form: l 15:45: INJ, ONCE, Stop date: 08/28/20 9:45:00 GOLD LAYER ceFAZolin 2019-08 No Route: IV, Me moria (ANES) 2-30 Drug form: l 14:43: INJ, ONCE, Stop date: 08/28/20 8:43:00 GOLD LAYER lidocaine 2019-08 No Route: IV, Me moria (ANES) 2-30 Drug form: l 14:38: INJ, ONCE, Stop date: 08/28/20 8:38:00 GOLD LAYER propofol 2019-08 No Route: IV, Mem oria (ANES) 2-30 Drug form: l 14:38: INJ, ONCE, Stop date: 08/28/20 8:38:00 GOLD LAYER rocuronium 2019-08 No Route: IV, M emoria (ANES) 2-30 Drug form: l 14:38: INJ, ONCE, Stop date: 08/28/20 8:38:00 GOLD LAYER succinylcho 2019-08 No Route: IV, Memoria line (ANES) 2-30 Drug form: l 14:38: INJ, ONCE, Stop date: 08/28/20 8:38:00 GOLD LAYER fentaNYL 2019-08 No Route: IV, Mem oria (ANES) 2-30 Drug form: l 14:38: INJ, ONCE, Stop date: 08/28/20 8:38:00 GOLD LAYER hydromorpho 2019-08 No Route: IV, Memoria ne (ANES) 2-30 Drug form: l 14:38: INJ, ONCE, Stop date: 08/28/20 8:38:00 GOLD LAYER Lactated 2019-08 No Route: IV, Mem oria Ringers 2-30 Total l Injection 13:17: Volume: Hillary nn IV (ANES) 00 1,000, 1000 mL Start date: 08/28/20 7:17:00 GOLD LAYER, Stop date: 08/28/20 8:17:00 GOLD LAYER Glycerin 2019-08 No 1 supp, Memori a 2000 MG Route: MA, l Rectal 19:58: Drug Form: Hillary nn Suppository 00 SUPP, Dosing Weight 75, kg, ONCE, NOW, Start date: 08/27/20 13:58:00 GOLD LAYER, Stop date: 08/27/20 13:58:00 GOLD LAYER, 0 normal 2019-08 No 1,000 mL, Memori a saline 0.9% - Rate: 75 l IV 1,000 mL 21:42: ml/hr, Herm catarino 00 Infuse over: 13.3 hr, Route: IV, Dosing Weight 75 kg, Total Volume: 1,000, Start date: 08/26/20 15:42:00 GOLD LAYER, Duration: 30 day, Stop date: 09/25/20 15:41:00 GOLD LAYER, 1.84, m2, 0 Oxycodone 2019-08 No Notes: Memori a Hydrochlori 2-26 (Same as: l de 5 MG 19:30: Roxicodone Herm catarino Oral Tablet 00 ) remove 2019-08 No Notes: Memoria patch 2-26 Remove l 03:00: patch 12 Julio César 00 hours after applicatio n each day. Oxycodone 2019-08 No Notes: Memori a Hydrochlori 2-25 (Same as: l de 5 MG 19:21: Roxicodone Herm catarino Oral Tablet ) Lidocaine 2019-08 No Notes: Memori a 0.04 MG/MG 2-25 Apply only l Medicated 14:00: once for Herm catarino Patch 00 up to 12 hours in a 24-hour period (12 hours on and 12 hours off). (Same as: Aspercreme Lidocaine Patch) "Remove old patch before applicatio n of new patch" Acetaminoph 2019-08 No Notes: Max Memoria en 2-25 acetaminop l 14:00: hen 4000 [place] 00 mg/day (4 gm/day). (Same as: Tylenol Extra Strength) gabapentin 2019-08 No Notes: Memor ia 2-25 (Same as: l 14:00: Neurontin) Synthroid 2019-08 No Notes: Memori a 2-25 Take 1 l 12:30: hour [place] 00 before or 2 hours after meal; Enteral feeds may interefere with the absorption of this medication . (Same as:Synthro id, Levothroid ) Enoxaparin 2019-08 No Notes: Memor ia 2-25 (Same as: l 10:00: Lovenox) influenza 2019-08 Yes Notes: Memori a virus 2-25 (Same as: l vaccine, 02:19: Fluzone Bruno n inactivated 58 High-Dose high-dose Quad) For preservativ 65 years e-free of age of intramuscul older (0.7 ar ml IM) suspension Shake well before use Promethazin 2019-08 No Notes: Do M emoria e 2-24 not give l 20:47: IV push. [place] (Same as: Phenergan) hydromorpho 2019-08 No Route: IV, Memoria ne (ANES) 2-24 Drug form: l 19:41: INJ, ONCE, Julio César 00 Stop date: 08/22/20 13:41:00 GOLD LAYER ondansetron 2019-08 No Route: IV, Memoria (ANES) 2-24 Drug form: l 19:36: INJ, ONCE, Stop date: 08/22/20 13:36:00 GOLD LAYER ketOROLAC 2019-08 No IV, ONCE Eleazar patricia (ANES) 2-24 l 19:36: Julio César 00 Hydralazine 2019-08 No Notes: Eleazar patricia 2-24 (Same as: l 19:27: Apresoline Julio César ) Push over 5 minutes Labetalol 2019-08 No 10 mg, 2 Eleazar patricia 2-24 mL, Route: l 19:27: IVP, Drug form: INJ, Q5Min, kg, PRN Elevated BP, Start date: 08/22/20 13:27:00 GOLD LAYER, Duration: 5 doses or times, Stop date: 08/23/20 0:00:00 GOLD LAYER, 0 Acetaminoph 2019-08 No Notes: Max Memoria en 2-24 acetaminop l 19:27: hen 4000 Julio César 00 mg/day (4 gm/day). (Same as: Tylenol Extra Strength) Oxycodone 2019-08 No Notes: Memori a Hydrochlori 2-24 (Same as: l de 5 MG 19:27: Roxicodone Herm catarino Oral Tablet ) Fentanyl 2019-08 No Notes: Memoria 2-24 (Same as: l 19:27: Sublimaze) [place] 00 Preservati ve free. Hydromorpho 2019-08 No Notes: Eleazar patricia ne 2-24 Same as l 19:27: Dilaudid Flumazenil 2019-08 No Notes: Memor ia 2-24 (Same as: l 19:27: Romazicon) Naloxone 2019-08 No Notes: Memoria 2-24 Same as l 19:27: Narcan Ondansetron 2019-08 No Notes: Eleazar patircia 2-24 (Same as: l 19:27: Zofran) MEDICATION WASTE Product Size: 4 mg Product Wasted: ___ mg dexamethaso 2019-08 No Route: IV, Memoria ne (ANES) 2-24 Drug form: l 19:06: INJ, ONCE, Stop date: 08/22/20 13:06:00 GOLD LAYER fentaNYL 2019-08 No Route: IV, Mem oria (ANES) 2-24 Drug form: l 19:01: INJ, ONCE, Stop date: 08/22/20 13:01:00 GOLD LAYER ceFAZolin 2019-08 No Route: IV, Me moria (ANES) 2-24 Drug form: l 19:01: INJ, ONCE, Stop date: 08/22/20 13:01:00 GOLD LAYER midazolam 2019-08 No Route: IV, Me moria (ANES) 2-24 Drug form: l 18:56: SOLN, ONCE, Stop date: 08/22/20 12:56:00 GOLD LAYER lidocaine 2019-08 No Route: IV, Me moria (ANES) 2-24 Drug form: l 18:45: INJ, ONCE, Stop date: 08/22/20 12:45:00 GOLD LAYER propofol 2019-08 No Route: IV, Mem oria (ANES) 2-24 Drug form: l 18:45: INJ, ONCE, Stop date: 08/22/20 12:45:00 GOLD LAYER succinylcho 2019-08 No Route: IV, Memoria line (ANES) 2-24 Drug form: l 18:45: INJ, ONCE, Stop date: 08/22/20 12:45:00 GOLD LAYER Lactated 2019-08 No Route: IV, Mem oria Ringers 2-24 Total l Injection 18:10: Volume: Hillary nn IV (ANES) 1,000, 1000 mL Start date: 08/22/20 12:10:00 GOLD LAYER, Stop date: 08/22/20 13:10:00 GOLD LAYER Amlodipine 2019-08 No Notes: Memor ia 2-24 (Same as: l 15:00: Norvasc) Morphine 2019-08 No 4 mg, Memoria 2-24 Route: l 14:26: IVP, ONCE, [place] kg, Priority: STAT, Start date: 08/22/20 8:26:00 GOLD LAYER, Stop date: 08/22/20 8:26:00 GOLD LAYER normal 2019-08 No 1,000 mL, Memori a saline 0.9% 2-24 Rate: 75 l IV 1,000 mL 14:22: ml/hr, Herm catarino Infuse over: 13.3 hr, Route: IV, Total Volume: 1,000, Start date: 08/22/20 8:22:00 GOLD LAYER, Duration: 30 day, Stop date: 09/21/20 8:21:00 GOLD LAYER, 0 Tylenol 2019-08 No Notes: Do Memor ia 2-24 not exceed l 11:06: 4 gm/day. Julio César (Same as: Tylenol) Oxycodone 2019-08 No Notes: Memori a Hydrochlori 2-24 (Same as: l de 5 MG 11:06: Roxicodone Herm catarino Oral Tablet ) Dextrose 2019-08 No 12.5 gm, Memor ia 50% Syringe 2-24 25 mL, l ([id number]) 11:05: Route: IVP, Drug Form: INJ, kg, PRN, PRN Blood Glucose Results, Start date: 08/22/20 5:05:00 GOLD LAYER, Duration: 30 day, Stop date: 09/21/20 5:04:00 GOLD LAYER, 0 Glucagon 2019-08 No 1 mg, Memoria 2-24 Route: IM, l 11:05: Drug form: PDR/INJ, PRN, kg, PRN Blood Glucose Results, Start date: 08/22/20 5:05:00 GOLD LAYER, Duration: 30 day, Stop date: 09/21/20 5:04:00 GOLD LAYER, 0 Amlodipine 2019-08 Yes 5 mg, PO, Me moria 2-24 Daily, 0 l 11:05: Refill(s) Hydrochloro 2020-1 Yes 1 tab, PO, Memoria thiazide 2-24 Daily, 0 l 12.5 MG / 11:05: Refill(s) Her bill Losartan 00 Potassium 100 MG Oral Tablet Levothyroxi 2019-08 Yes 75 Memori a ne Sodium 2-24 microgram l 0.075 MG 11:05: = 1 tab, Hillary nn Oral Tablet 00 PO, Daily, [Synthroid] 0 Refill(s) Morphine 2019-08 No 4 mg, Memoria 2-24 Route: l 10:15: IVP, ONCE, [place] 00 kg, Priority: STAT, Start date: 08/22/20 4:15:00 GOLD LAYER, Stop date: 08/22/20 4:15:00 GOLD LAYER Acetaminoph 2019-08 No 650 mg, Mem oria en 2-24 Route: PO, l 10:15: Drug form: [place] 00 TAB, ONCE, kg, Priority: STAT, Start date: 08/22/20 4:15:00 GOLD LAYER, Stop date: 08/22/20 4:15:00 GOLD LAYER Morphine 2019-08 No 4 mg, Memoria 2-24 Route: l 07:07: IVP, ONCE, Julio César kg, Priority: STAT, Start date: 08/22/20 1:07:00 GOLD LAYER, Stop date: 08/22/20 1:07:00 GOLD LAYER Ondansetron 2019-08 No 4 mg, Memor ia 2-24 Route: l 07:07: IVP, Drug form: INJ, ONCE, kg, Priority: STAT, Start date: 08/22/20 1:07:00 GOLD LAYER, Stop date: 08/22/20 1:07:00 GOLD LAY[place] Estrace Estrace Yes Rashaad as Comm on 5- [place] directed [facility] 00:00: - [facility] Bactrim DS Bactrim DS Yes Rashaad 1 tablet Common 5-11 [place] [facility] 00:00: - [facility] 00 [facility] Levothyroxi Levothyroxi Yes Rashaad 1 tablet Common ne Sodium ne Sodium [place] on an [facility] empty - [facility] stomach in [facility] Nitrofurant Nitrofurant Yes Rashaad 1 capsule Common oin oin [place] with food [facility] Macrocrysta Macrocrysta or milk - [facility] l l [facility] Pyridium Pyridium Yes Rashaad 1 tablet Common [place] after [facility] meals - [facility] Glucosamine Glucosamine Yes Rashaad as Common Chondro Chondro [place] directed S pirit Complex Complex - [facility] Amlodipine Amlodipine Yes Rashaad 1 tablet Common Besylate Besylate [facility] Pantoprazol Pantoprazol Yes Rashaad TAKE 1 Common e Sodium e Sodium [place] TABLET BY Spirit MOUTH ONCE - [facility] DAILY [facility] Oxybutynin Oxybutynin Yes Rashaad 1 tablet Common Chloride Chloride [facility] Losartan Losartan Yes Rashaad TAKE 1 Co mmon Potassium-H Potassium-H [place] TABLET BY Spirit CTZ CTZ MOUTH ONCE - [facility] DAILY [facility] Melatonin Melatonin Yes Rashaad 1 capsule Common [place] at bedtime Spiri t as needed - [facility] with food [facility] BuPROPion BuPROPion Yes Rashaad 1 tab C ommon HCl HCl [facility] Pantoprazol Pantoprazol Yes Rashaad 1 tablet Common e Sodium e Sodium [facility] No known No DC medications Health No known No DC medications Health No known No DC medications Health amlodipine amlodipine No amlodipine [place] 5 mg tablet 5 mg tablet 5 mg C ommuni Take 1 Take 1 tablet ty tablet tablet Take 1 Hospita every day every day tablet l by oral by oral every day Clin ics route. route. by oral route. ergocalcife ergocalcife No ergocalcif [place] rol rol kendy Communi (vitamin (vitamin (vitamin ty D2) 1,250 D2) 1,250 D2) 1,250 Hospita mcg (50,000 mcg (50,000 mcg l unit) unit) (50,000 Clinics capsule capsule unit) capsule gabapentin gabapentin No gabapentin [place] 300 mg 300 mg 300 mg Communi capsule 1 capsule 1 capsule 1 ty PO qd PO qd PO qd Hospita l Clinics levothyroxi levothyroxi No levothyrox [place] ne 75 mcg ne 75 mcg ine 75 mcg Communi tablet Take tablet Take tablet ty 1 tablet 1 tablet Take 1 Hospi ta every day every day tablet l by oral by oral every day Clin ics route in route in by oral the the route in morning. morning. the morning. lidocaine 5 lidocaine 5 No lidocaine [place] % topical % topical 5 % Commu ni ointment ointment topical ty Apply to Apply to ointment Hos majo left knee left knee Apply to l TID prn TID prn left knee Clin ics TID prn Lidocaine Lidocaine No 15mL Q3H Lidocaine [place] Viscous 2 % Viscous 2 % Viscous 2 Communi mucosal mucosal % mucosal ty solution solution solution [facility] Take 15 mL Take 15 mL Take 15 mL l every 3 every 3 every 3 Clinic s hours by hours by hours by oral route. oral route. oral route. losartan losartan No losartan Swe lani 100 100 100 Communi mg-hydrochl mg-hydrochl mg-hydroch ty orothiazide orothiazide lorothiazi Hospita 25 mg 25 mg de 25 mg l tablet Take tablet Take tablet Clinics 1 tablet 1 tablet Take 1 every day every day tablet by oral by oral every day route. route. by oral route. Shingrix Shingrix No Shingrix Swe lani (PF) 50 (PF) 50 (PF) 50 Commun i mcg/0.5 mL mcg/0.5 mL mcg/0.5 mL ty intramuscul intramuscul intramuscu [facility] ar ar lar l suspension, suspension, suspension Clinics kit kit , kit tramadol 50 tramadol 50 No tramadol [place] mg tablet mg tablet 50 mg Comm uni Take 1 Take 1 tablet ty tablet tablet Take 1 Hospita every 6-8 every 6-8 tablet l hours by hours by every 6-8 Cl inics oral route. oral route. hours by oral route. valacyclovi valacyclovi No 1 Q12H valacyclov [place] r 1 gram r 1 gram ir 1 gram Co mmuni tablet Take tablet Take tablet ty 1 tablet 1 tablet Take 1 Hospi ta every 12 every 12 tablet l hours by hours by every 12 Cli nics oral route. oral route. hours by oral route. amlodipine amlodipine No amlodipine [place] 5 mg tablet 5 mg tablet 5 mg C ommuni TAKE 1 TAKE 1 tablet ty TABLET BY TABLET BY TAKE 1 Hos majo MOUTH DAILY MOUTH DAILY TABLET BY l MOUTH Clinics DAILY levothyroxi levothyroxi No levothyrox [place] ne 75 mcg ne 75 mcg ine 75 mcg Communi tablet TAKE tablet TAKE tablet ty 1 TABLET BY 1 TABLET BY TAKE 1 Hospita MOUTH EVERY MOUTH EVERY TABLET BY l MORNING ON MORNING ON MOUTH Cl inics AN EMPTY AN EMPTY EVERY STOMACH STOMACH MORNING ON WITH A WITH A AN EMPTY GLASS OF GLASS OF STOMACH WATER WATER WITH A GLASS OF WATER losartan losartan No losartan Swe lani 100 100 100 Communi mg-hydrochl mg-hydrochl mg-hydroch ty orothiazide orothiazide lorothiazi Hospita 25 mg 25 mg de 25 mg l tablet TAKE tablet TAKE tablet Clinics 1 TABLET BY 1 TABLET BY TAKE 1 MOUTH DAILY MOUTH DAILY TABLET BY MOUTH DAILY Shingrix Shingrix No Shingrix Swe lani (PF) 50 (PF) 50 (PF) 50 Commun i mcg/0.5 mL mcg/0.5 mL mcg/0.5 mL ty intramuscul intramuscul intramuscu Hospita ar ar lar l suspension, suspension, suspension Clinics kit kit , kit valacyclovi valacyclovi No valacyclov [place] r 1 gram r 1 gram ir 1 gram Co mmuni tablet Take tablet Take tablet ty 1 tablet 1 tablet Take 1 Hospi ta every 12 every 12 tablet l hours by hours by every 12 Cli nics oral route. oral route. hours by oral route. amlodipine amlodipine No amlodipine [place] 5 mg tablet 5 mg tablet 5 mg C ommuni TAKE 1 TAKE 1 tablet ty TABLET BY TABLET BY TAKE 1 Hos majo MOUTH DAILY MOUTH DAILY TABLET BY l MOUTH Clinics DAILY levothyroxi levothyroxi No levothyrox [place] ne 75 mcg ne 75 mcg ine 75 mcg Communi tablet TAKE tablet TAKE tablet ty 1 TABLET BY 1 TABLET BY TAKE 1 Hospita MOUTH EVERY MOUTH EVERY TABLET BY l MORNING ON MORNING ON MOUTH Cl inics AN EMPTY AN EMPTY EVERY STOMACH STOMACH MORNING ON WITH A WITH A AN EMPTY GLASS OF GLASS OF STOMACH WATER WATER WITH A GLASS OF WATER losartan losartan No losartan Swe lani 100 100 100 Communi mg-hydrochl mg-hydrochl mg-hydroch ty orothiazide orothiazide [facility]othiazi Hospita 25 mg 25 mg de 25 mg l tablet TAKE tablet TAKE tablet Clinics 1 TABLET BY 1 TABLET BY TAKE 1 MOUTH DAILY MOUTH DAILY TABLET BY MOUTH DAILY Shingrix Shingrix No Shingrix Swe lani (PF) 50 (PF) 50 (PF) 50 Commun i mcg/0.5 mL mcg/0.5 mL mcg/0.5 mL ty intramuscul intramuscul intramuscu Hospita ar ar lar l suspension, suspension, suspension Clinics kit kit , kit valacyclovi valacyclovi No valacyclov [place] r 1 gram r 1 gram ir 1 gram Co mmuni tablet Take tablet Take tablet ty 1 tablet 1 tablet Take 1 Hospi ta every 12 every 12 tablet l hours by hours by every 12 Cli nics oral route. oral route. hours by oral route. alendronate alendronate No 1 Q1W alendronat [place] 70 mg 70 mg e 70 mg Communi tablet Take tablet Take tablet ty 1 tablet 1 tablet Take 1 Hospi ta every week every week tablet l by oral by oral every week Cli nics route. route. by oral Follow Follow route. Instruction Instruction Follow s s Instructio ns amlodipine amlodipine No amlodipine [place] 5 mg tablet 5 mg tablet 5 mg C ommuni TAKE 1 TAKE 1 tablet ty TABLET BY TABLET BY TAKE 1 Hos majo MOUTH DAILY MOUTH DAILY TABLET BY l MOUTH Clinics DAILY levothyroxi levothyroxi No levothyrox [place] ne 75 mcg ne 75 mcg ine 75 mcg Communi tablet TAKE tablet TAKE tablet ty 1 TABLET BY 1 TABLET BY TAKE 1 Hospita MOUTH EVERY MOUTH EVERY TABLET BY l MORNING ON MORNING ON MOUTH Cl inics AN EMPTY AN EMPTY EVERY STOMACH STOMACH MORNING ON WITH A WITH A AN EMPTY GLASS OF GLASS OF STOMACH WATER WATER WITH A GLASS OF WATER losartan losartan No losartan Swe lani 100 100 100 Communi mg-hydrochl mg-hydrochl mg-hydroch ty orothiazide orothiazide [facility]iazi Hospita 25 mg 25 mg de 25 mg l tablet TAKE tablet TAKE tablet Clinics 1 TABLET BY 1 TABLET BY TAKE 1 MOUTH DAILY MOUTH DAILY TABLET BY MOUTH DAILY methocarbam methocarbam No methocarba [place] ol 750 mg ol 750 mg mol 750 mg [facility] Shingrix Shingrix No Shingrix Swe lani (PF) 50 (PF) 50 (PF) 50 Commun i mcg/0.5 mL mcg/0.5 mL mcg/0.5 mL ty intramuscul [facility]cul [facility]cu [facility] lar l suspension, suspension, suspension Clinics kit kit , kit tramadol 50 tramadol 50 No tramadol [place] mg tablet mg tablet 50 mg Comm [facility] valacyclovi valacyclovi No valacyclov [place] r 1 gram r 1 gram ir 1 gram Co mmuni tablet Take tablet Take tablet ty 1 tablet 1 tablet Take 1 Hospi ta every 12 every 12 tablet l hours by hours by every 12 Cli nics oral route. oral route. hours by oral route. alendronate alendronate No alendronat [place] 70 mg 70 mg e 70 mg Communi tablet Take tablet Take tablet ty 1 tablet 1 tablet Take 1 Hospi ta every week every week tablet l by oral by oral every week Cli nics route. route. by oral route. amlodipine amlodipine No amlodipine [place] 10 mg 10 mg 10 mg Communi tablet 1 PO tablet 1 PO tablet 1 ty qd qd PO qd Hospita l Clinics levothyroxi levothyroxi No levothyrox [place] ne 75 mcg ne 75 mcg ine 75 mcg Communi tablet TAKE tablet TAKE tablet ty 1 TABLET BY 1 TABLET BY TAKE 1 Hospita MOUTH EVERY MOUTH EVERY TABLET BY l MORNING ON MORNING ON MOUTH Cl inics AN EMPTY AN EMPTY EVERY STOMACH STOMACH MORNING ON WITH A WITH A AN EMPTY GLASS OF GLASS OF STOMACH WATER WATER WITH A GLASS OF WATER losartan losartan No losartan Swe lani 100 100 100 Communi mg-hydrochl mg-hydrochl mg-hydroch ty orothiazide orothiazide [facility]iazi Hospita 25 mg 25 mg de 25 mg l tablet TAKE tablet TAKE tablet Clinics 1 TABLET BY 1 TABLET BY TAKE 1 MOUTH DAILY MOUTH DAILY TABLET BY MOUTH DAILY Shingrix Shingrix No Shingrix Swe lani (PF) 50 (PF) 50 (PF) 50 Commun i mcg/0.5 mL mcg/0.5 mL mcg/0.5 mL ty intramuscul intramuscul intramuscu [facility] ar [facility] lar l suspension, suspension, suspension Clinics kit kit , kit tramadol 50 tramadol 50 No tramadol [place] mg tablet mg tablet 50 mg Comm uni tablet ty Hospita l [facility] valacyclovi valacyclovi No 1 Q12H valacyclov [place] r 1 gram r 1 gram ir 1 gram Co mmuni tablet Take tablet Take tablet ty 1 tablet 1 tablet Take 1 Hospi ta every 12 every 12 tablet l hours by hours by every 12 Cli nics oral route. oral route. hours by oral route. alendronate alendronate No alendronat [place] 70 mg 70 mg e 70 mg Communi tablet Take tablet Take tablet ty 1 tablet 1 tablet Take 1 Hospi ta every week every week tablet l by oral by oral every week Cli nics route. route. by oral route. amlodipine amlodipine No amlodipine [place] 10 mg 10 mg 10 mg Communi tablet 1 PO tablet 1 PO tablet 1 ty [facility] atorvastati atorvastati No atorvastat [place] n 40 mg n 40 mg in 40 mg Commu ni tablet Take tablet Take tablet ty 1 tablet at 1 tablet at Take 1 [facility] bedtime bedtime tablet at l bedtime Clinics levothyroxi levothyroxi No levothyrox [place] ne 75 mcg ne 75 mcg ine 75 mcg Communi tablet TAKE tablet TAKE tablet ty 1 TABLET BY 1 TABLET BY TAKE 1 [facility] MOUTH EVERY MOUTH EVERY TABLET BY l MORNING ON MORNING ON MOUTH Cl inics AN EMPTY AN EMPTY EVERY STOMACH STOMACH MORNING ON WITH A WITH A AN EMPTY GLASS OF GLASS OF STOMACH WATER WATER WITH A GLASS OF WATER losartan losartan No losartan Swe lani 100 100 100 Communi mg-hydrochl mg-hydrochl mg-hydroch ty orothiazide orothiazide [facility]zi [facility]ospita 25 mg 25 mg de 25 mg l tablet TAKE tablet TAKE tablet Clinics 1 TABLET BY 1 TABLET BY TAKE 1 MOUTH DAILY MOUTH DAILY TABLET BY MOUTH DAILY metoprolol metoprolol No metoprolol [place] tartrate 50 tartrate 50 tartrate Communi mg tablet mg tablet 50 mg ty Take 1 Take 1 tablet [facility] tablet BID tablet BID Take 1 l PO PO tablet BID Clinics PO Shingrix Shingrix No Shingrix Swe lani (PF) 50 (PF) 50 (PF) 50 Commun i mcg/0.5 mL mcg/0.5 mL mcg/0.5 mL ty intramuscul intramuscul [facility]uscu [facility] ar [facility] lar l suspension, suspension, suspension Clinics kit kit , kit tramadol 50 tramadol 50 No tramadol [place] mg tablet mg tablet 50 mg Comm uni tablet ty [facility] valacyclovi valacyclovi No valacyclov [place] r 1 gram r 1 gram ir 1 gram Co mmuni tablet TAKE tablet TAKE tablet ty 1 TABLET BY 1 TABLET BY TAKE 1 Hospita MOUTH EVERY MOUTH EVERY TABLET BY l 12 HOURS 12 HOURS MOUTH Clinic s EVERY 12 HOURS alendronate alendronate No alendronat [place] 70 mg 70 mg e 70 mg Communi tablet Take tablet Take tablet ty 1 tablet 1 tablet Take 1 Hospi ta every week every week tablet l by oral by oral every week Cli nics route for route for by oral 90 days. 90 days. route for 90 days. amlodipine amlodipine No amlodipine [place] [facility] 10 mg 10 mg 10 mg [facility] tablet 1 PO tablet 1 PO tablet [facility] No atorvastat [place] n 40 mg n 40 mg in 40 mg Commu ni tablet Take tablet Take tablet ty 1 tablet at 1 tablet at Take 1 Hospita bedtime bedtime tablet at l bedtime Clinics levothyroxi levothyroxi No levothyrox [place] ne 75 mcg ne 75 mcg ine 75 mcg [facility] tablet TAKE tablet TAKE tablet ty 1 TABLET BY 1 TABLET BY TAKE 1 Hospita MOUTH ON AN MOUTH ON AN TABLET BY l EMPTY EMPTY MOUTH ON Clinics STOMACH IN STOMACH IN AN EMPTY THE MORNING THE MORNING STOMACH IN WITH A WITH A THE GLASS OF GLASS OF MORNING WATER WATER WITH A GLASS OF WATER losartan losartan No losartan [facility] 100 100 100 [facility] mg-hydrochl mg-hydrochl mg-hydroch ty orothiazide orothiazide lorothiazi [facility]osp[facility] 25 mg 25 mg de 25 mg l tablet TAKE tablet TAKE tablet Clinics 1 TABLET BY 1 TABLET BY TAKE 1 MOUTH DAILY MOUTH DAILY TABLET BY MOUTH DAILY metoprolol metoprolol No metoprolol [place] tartrate 50 tartrate 50 tartrate [facility] mg tablet mg tablet 50 mg ty Take 1 Take 1 tablet Hospita tablet BID tablet BID Take 1 l PO PO tablet BID Clinics PO Shingrix Shingrix No Shingrix [facility] (PF) 50 (PF) 50 (PF) 50 Commun i mcg/0.5 mL mcg/0.5 mL mcg/0.5 mL ty intramuscul [facility]cul [facility] suspension, suspension, suspension Clinics kit kit , kit tramadol 50 tramadol 50 No tramadol [place] [facility] mg tablet mg tablet 50 mg Comm uni tablet ty [facility] valacyclovi valacyclovi No valacyclov [place] r 1 gram r 1 gram ir 1 gram [facility] tablet TAKE tablet TAKE tablet ty 1 TABLET BY 1 TABLET BY TAKE 1 Hospita MOUTH EVERY MOUTH EVERY TABLET BY l 12 HOURS 12 HOURS MOUTH Clinic s EVERY 12 HOURS alendronate alendronate No alendronat [facility] 70 mg 70 mg e 70 mg [facility] tablet Take tablet Take tablet ty 1 tablet 1 tablet Take 1 Hospi ta every week every week tablet l by oral by oral every week Cli nics route for route for by oral 90 days. 90 days. route for 90 days. amlodipine amlodipine No amlodipine [place] [facility] 10 mg 10 mg 10 mg [facility] tablet 1 PO tablet 1 PO tablet 1 ty [facility] at[facility] atorvastati No atorvastat [place] n 40 mg n 40 mg in 40 mg Commu ni tablet take tablet take tablet ty 1 tablet at 1 tablet at take 1 [facility] bedtime bedtime tablet at l bedtime Clinics bupropion bupropion No 1 Q1D bupropion [place] HCl XL 150 HCl XL 150 HCl XL 150 [facility]i mg 24 hr mg 24 hr mg 24 hr ty tablet, tablet, tablet, Hospit a extended extended extended l release release release Clinic s Take 1 Take 1 Take 1 tablet tablet tablet every day every day every day by oral by oral by oral route for route for route for 90 days. 90 days. 90 days. levothyroxi levothyroxi No levothyrox [place] ne 75 mcg ne 75 mcg ine 75 mcg [facility] tablet TAKE tablet TAKE tablet ty 1 TABLET BY 1 TABLET BY TAKE 1 Hospita MOUTH ON AN MOUTH ON AN TABLET BY l EMPTY EMPTY MOUTH ON Clinics STOMACH IN STOMACH IN AN EMPTY THE MORNING THE MORNING STOMACH IN WITH A WITH A THE GLASS OF GLASS OF MORNING WATER WATER WITH A GLASS OF WATER losartan losartan No losartan [facility] 100 100 100 [facility] mg-hydrochl mg-hydrochl mg-hydroch ty orothiazide orothiazide lorothiazi Hospita 25 mg 25 mg de 25 mg l tablet TAKE tablet TAKE tablet Clinics 1 TABLET BY 1 TABLET BY TAKE 1 MOUTH DAILY MOUTH DAILY TABLET BY MOUTH DAILY metoprolol metoprolol No metoprolol [place] tartrate 50 tartrate 50 tartrate [facility] mg tablet mg tablet 50 mg ty Take 1 Take 1 tablet Hospita tablet tablet Take 1 l twice daily twice daily tablet Clinics by mouth by mouth twice daily by mouth Shingrix Shingrix No Shingrix [facility] (PF) 50 (PF) 50 (PF) 50 Commun i mcg/0.5 mL mcg/0.5 mL mcg/0.5 mL ty intramuscul intramuscul [facility]cu [facility] suspension, suspension, suspension Clinics kit kit , kit valacyclovi valacyclovi No valacyclov [place] r 1 gram r 1 gram ir 1 gram [facility] tablet TAKE tablet TAKE tablet ty 1 TABLET BY 1 TABLET BY TAKE 1 Hospita MOUTH EVERY MOUTH EVERY TABLET BY l 12 HOURS 12 HOURS MOUTH Clinic s EVERY 12 HOURS alendronate alendronate No alendronat [place] [facility] 70 mg 70 mg e 70 mg [facility] tablet Take tablet Take tablet ty 1 tablet 1 tablet Take 1 Hospi ta every week every week tablet l by oral by oral every week Cli nics route for route for by oral 90 days. 90 days. route for 90 days. amlodipine amlodipine No amlodipine [place] [facility] 10 mg 10 mg 10 mg [facility] tablet TAKE tablet TAKE tablet ty 1 TABLET 1 TABLET TAKE 1 Hospi ta DAILY DAILY TABLET l DAILY Clinics amlodipine amlodipine No amlodipine [facility] 5 mg tablet 5 mg tablet 5 mg [facility] TAKE 1 TAKE 1 tablet ty TABLET BY TABLET BY TAKE 1 [facility] MOUTH DAILY MOUTH DAILY TABLET BY l MOUTH Clinics DAILY atorvastati atorvastati No atorvastat [facility] n 40 mg n 40 mg in 40 mg Commu ni tablet Take tablet Take tablet ty 1 tablet at 1 tablet at Take 1 Hospita bedtime bedtime tablet at l bedtime Clinics bupropion bupropion No bupropion [place] [facility] HCl XL 150 HCl XL 150 HCl XL 150 [facility] mg 24 hr mg 24 hr mg 24 hr ty tablet, tablet, tablet, Hospit a extended extended extended l release release release Clinic s TAKE 1 TAKE 1 TAKE 1 TABLET TABLET TABLET DAILY DAILY DAILY bupropion bupropion No 1 Q1D bupropion [place] [facility] HCl XL 300 HCl XL 300 HCl XL 300 [facility] mg 24 hr mg 24 hr mg 24 hr ty tablet, tablet, tablet, Hospit a extended extended extended l release release release Clinic s Take 1 Take 1 Take 1 tablet tablet tablet every day every day every day by oral by oral by oral route. route. route. levothyroxi levothyroxi No levothyrox [place] ne 75 mcg ne 75 mcg ine 75 mcg [facility] tablet TAKE tablet TAKE tablet ty 1 TABLET BY 1 TABLET BY TAKE 1 Hospita MOUTH ON AN MOUTH ON AN TABLET BY l EMPTY EMPTY MOUTH ON Clinics STOMACH IN STOMACH IN AN EMPTY THE MORNING THE MORNING STOMACH IN WITH A WITH A THE GLASS OF GLASS OF MORNING WATER WATER WITH A GLASS OF WATER losartan losartan No losartan [facility] 100 100 100 [facility] mg-hydrochl mg-hydrochl mg-hydroch ty orothiazide orothiazide lorothiazi [facility]osp[facility] 25 mg 25 mg de 25 mg l tablet TAKE tablet TAKE tablet Clinics 1 TABLET 1 TABLET TAKE 1 DAILY DAILY TABLET DAILY metoprolol metoprolol No metoprolol [place] tartrate 50 tartrate 50 tartrate [facility] mg tablet mg tablet 50 mg ty Take 1 Take 1 tablet Hospita tablet BID tablet BID Take 1 l PO PO tablet BID Clinics PO Shingrix Shingrix No Shingrix [facility] (PF) 50 (PF) 50 (PF) 50 Commun i mcg/0.5 mL mcg/0.5 mL mcg/0.5 mL ty intramuscul intramuscul intramuscu Hospita [facility] l suspension, suspension, suspension Clinics kit kit , kit valacyclovi valacyclovi No valacyclov [place] r 1 gram r 1 gram ir 1 gram [facility] tablet TAKE tablet TAKE tablet ty 1 TABLET BY 1 TABLET BY TAKE 1 Hospita MOUTH EVERY MOUTH EVERY TABLET BY l 12 HOURS 12 HOURS MOUTH Clinic s EVERY 12 HOURS alendronate alendronate No alendronat [place] [facility] 70 mg 70 mg e 70 mg [facility] tablet Take tablet Take tablet ty 1 tablet 1 tablet Take 1 Hospi ta every week every week tablet l by oral by oral every week Cli nics route for route for by oral 90 days. 90 days. route for 90 days. amlodipine amlodipine No amlodipine [place] [facility] 10 mg 10 mg 10 mg [facility] tablet TAKE tablet TAKE tablet ty 1 TABLET 1 TABLET TAKE 1 Hospi ta DAILY DAILY TABLET l DAILY Clinics amlodipine amlodipine No amlodipine [place] [facility] 5 mg tablet 5 mg tablet 5 mg [facility] TAKE 1 TAKE 1 tablet ty TABLET BY TABLET BY TAKE 1 [facility] MOUTH DAILY MOUTH DAILY TABLET BY l MOUTH Clinics DAILY atorvastati atorvastati No atorvastat [place] [facility] n 40 mg n 40 mg in 40 mg Commu ni tablet Take tablet Take tablet ty 1 tablet at 1 tablet at Take 1 Hospita bedtime bedtime tablet at l bedtime Clinics bupropion bupropion No 1 Q1D bupropion [place] HCl XL 300 HCl XL 300 HCl XL 300 [facility] mg 24 hr mg 24 hr mg 24 hr ty tablet, tablet, tablet, Hospit a extended extended extended l release release release Clinic s Take 1 Take 1 Take 1 tablet tablet tablet every day every day every day by oral by oral by oral route. route. route. levothyroxi levothyroxi No levothyrox [place] ne 75 mcg ne 75 mcg ine 75 mcg [facility] tablet TAKE tablet TAKE tablet ty 1 TABLET BY 1 TABLET BY TAKE 1 Hospita MOUTH ON AN MOUTH ON AN TABLET BY l EMPTY EMPTY MOUTH ON Clinics STOMACH IN STOMACH IN AN EMPTY THE MORNING THE MORNING STOMACH IN WITH A WITH A THE GLASS OF GLASS OF MORNING WATER WATER WITH A GLASS OF WATER losartan losartan No losartan [facility] 100 100 100 [facility] mg-hydrochl mg-hydrochl mg-hydroch ty orothiazide orothiazide lorothiazi Hospita 25 mg 25 mg de 25 mg l tablet TAKE tablet TAKE tablet Clinics 1 TABLET 1 TABLET TAKE 1 DAILY DAILY TABLET DAILY metoprolol metoprolol No metoprolol [place] tartrate tartrate tartrate Com adalberto 100 mg 100 mg 100 mg ty tablet Take tablet Take tablet Hospita 1 tablet 1 tablet Take 1 l BID PO BID PO tablet BID Clini cs PO Shingrix Shingrix No Shingrix [facility] (PF) 50 (PF) 50 (PF) 50 Commun i mcg/0.5 mL mcg/0.5 mL mcg/0.5 mL ty intramuscul [facility]cul [facility]cu [facility] suspension, suspension, suspension Clinics kit kit , kit valacyclovi valacyclovi No valacyclov [place] r 1 gram r 1 gram ir 1 gram [facility] tablet TAKE tablet TAKE tablet ty 1 TABLET BY 1 TABLET BY TAKE 1 Hospita MOUTH EVERY MOUTH EVERY TABLET BY l 12 HOURS 12 HOURS MOUTH Clinic s EVERY 12 HOURS alendronate alendronate No alendronat [place] [facility] 70 mg 70 mg e 70 mg [facility] tablet Take tablet Take tablet ty 1 tablet 1 tablet Take 1 Hospi ta every week every week tablet l by oral by oral every week Cli nics route for route for by oral 90 days. 90 days. route for 90 days. amlodipine amlodipine No amlodipine [place] [facility] 10 mg 10 mg 10 mg [facility] tablet TAKE tablet TAKE tablet ty 1 TABLET 1 TABLET TAKE 1 Hospi ta DAILY DAILY TABLET l DAILY Clinics amlodipine amlodipine No amlodipine [place] [facility] 5 mg tablet 5 mg tablet 5 mg [facility] TAKE 1 TAKE 1 tablet ty TABLET BY TABLET BY TAKE 1 [facility] MOUTH DAILY MOUTH DAILY TABLET BY l MOUTH Clinics DAILY atorvastati atorvastati No atorvastat [facility] n 40 mg n 40 mg in 40 mg Commu ni tablet Take tablet Take tablet ty 1 tablet at 1 tablet at Take 1 Hospita bedtime bedtime tablet at l bedtime Clinics bupropion bupropion No bupropion [place] [facility] HCl XL 300 HCl XL 300 HCl XL 300 [facility] mg 24 hr mg 24 hr mg 24 hr ty tablet, tablet, tablet, Hospit a extended extended extended l release release release Clinic s Take 1 Take 1 Take 1 tablet tablet tablet every day every day every day by oral by oral by oral route. route. route. Cholestyram Cholestyram No Cholestyra [place] [facility] ine Light 4 ine Light 4 mine Light [facility] gram powder gram powder 4 gram ty for susp in for susp in powder for Hospita a packet a packet susp in a l packet Clinics dexamethaso dexamethaso No 10mg dexamethas [place] [facility] ne sodium ne sodium one sodium [facility] phosphate phosphate phosphate ty 10 mg/mL 10 mg/mL 10 mg/mL [facility] injection injection injection l solution solution solution Cli nics Take 10 mg Take 10 mg Take 10 mg by by by injection injection injection route. route. route. fluconazole fluconazole No fluconazol [place] [facility] 100 mg 100 mg e 100 mg [facility] tablet tablet tablet ty Hospita l Clinics Kenalog 40 Kenalog 40 No 40mg Kenalog 40 [facility] mg/mL mg/mL mg/mL [facility] suspension suspension suspension ty for for for Hospita injection injection injection l Take 40 mg Take 40 mg Take 40 mg Clinics by by by injection injection injection route. route. route. levothyroxi levothyroxi No levothyrox [place] ne 75 mcg ne 75 mcg ine 75 mcg [facility] tablet TAKE tablet TAKE tablet ty 1 TABLET 1 TABLET TAKE 1 Hospi ta EVERY EVERY TABLET l MORNINGON MORNINGON EVERY Clin ics AN EMPTY AN EMPTY MORNINGON STOMACH STOMACH AN EMPTY WITH A WITH A STOMACH GLASS OF GLASS OF WITH A WATER WATER GLASS OF WATER losartan losartan No losartan [facility] 100 100 100 [facility] mg-hydrochl mg-hydrochl mg-hydroch ty orothiazide orothiazide lorothiazi Hospita 25 mg 25 mg de 25 mg l tablet TAKE tablet TAKE tablet Clinics 1 TABLET 1 TABLET TAKE 1 DAILY DAILY TABLET DAILY metoclopram metoclopram No metoclopra [facility] joshua 10 mg johsua 10 mg mide 10 mg Communi tablet tablet tablet ty [facility] metoprolol metoprolol No metoprolol [place] [facility] tartrate tartrate tartrate Com adalberto 100 mg 100 mg 100 mg ty tablet Take tablet Take tablet Hospita 1 tablet 1 tablet Take 1 l BID PO BID PO tablet BID Clini cs PO metronidazo metronidazo No metronidaz [facility] le 500 mg le 500 mg ole 500 mg [facility] tablet tablet tablet ty [facility] omeprazole omeprazole No omeprazole [place] 20 mg 20 mg 20 mg [facility] capsule,del capsule,del capsule,de ty ayed ayed layed [facility] release release release l Clinics ondansetron ondansetron No ondansetro [place] HCl 4 mg HCl 4 mg n HCl 4 mg C [facility] tablet tablet tablet ty [facility] Prolia 60 Prolia 60 No Prolia 60 [place] [facility] mg/mL mg/mL mg/mL [facility]i subcutaneou subcutaneou subcutaneo ty s syringe 1 s syringe 1 us syringe Hospita mL mL 1 mL l injection injection injection Clinics every 6 every 6 every 6 months months months Bring to Bring to Bring to office to office to office to receive receive receive injection injection injection Shingrix Shingrix No Shingrix [facility] (PF) 50 (PF) 50 (PF) 50 Commun i mcg/0.5 mL mcg/0.5 mL mcg/0.5 mL ty intramuscul intramuscul [facility]cu [facility] suspension, suspension, suspension Clinics kit kit , kit sodium,pota sodium,pota No sodium,pot [place] [facility] ssium,mag ssium,mag assium,mag [facility] sulfates sulfates sulfates ty 17.5 17.5 17.5 Hospita gram-3.13 gram-3.13 gram-3.13 l gram-1.6 gram-1.6 gram-1.6 Cli nics gram oral gram oral gram oral soln soln soln valacyclovi valacyclovi No valacyclov [place] [facility] r 1 gram r 1 gram ir 1 gram [facility] tablet TAKE tablet TAKE tablet ty 1 TABLET BY 1 TABLET BY TAKE 1 Hospita MOUTH EVERY MOUTH EVERY TABLET BY l 12 HOURS 12 HOURS MOUTH Clinic s EVERY 12 HOURS amlodipine amlodipine No amlodipine [facility] 10 mg 10 mg 10 mg [facility] tablet TAKE tablet TAKE tablet ty 1 TABLET 1 TABLET TAKE 1 Hospi ta DAILY DAILY TABLET l DAILY Clinics amlodipine amlodipine No amlodipine [facility] 5 mg tablet 5 mg tablet 5 mg [facility] TAKE 1 TAKE 1 tablet ty TABLET BY TABLET BY TAKE 1 [facility] MOUTH DAILY MOUTH DAILY TABLET BY l MOUTH Clinics DAILY atorvastati atorvastati No atorvastat [place] n 40 mg n 40 mg in 40 mg Commu ni tablet Take tablet Take tablet ty 1 tablet at 1 tablet at Take 1 Hospita bedtime bedtime tablet at l bedtime Clinics bupropion bupropion No bupropion [place] [facility] HCl XL 300 HCl XL 300 HCl XL 300 [facility] mg 24 hr mg 24 hr mg 24 hr ty tablet, tablet, tablet, Hospit a extended extended extended l release release release Clinic s Take 1 Take 1 Take 1 tablet tablet tablet every day every day every day by oral by oral by oral route. route. route. Cholestyram Cholestyram No Cholestyra [place] ine Light 4 ine Light 4 mine Light [facility] gram powder gram powder 4 gram ty for susp in for susp in powder for Hospita a packet a packet susp in a l packet Clinics dexamethaso dexamethaso No 10mg dexamethas [place] [facility] ne sodium ne sodium one sodium [facility] phosphate phosphate phosphate ty 10 mg/mL 10 mg/mL 10 mg/mL [facility] injection injection injection l solution solution solution Cli nics Take 10 mg Take 10 mg Take 10 mg by by by injection injection injection route. route. route. fluconazole fluconazole No fluconazol [place] [facility] 100 mg 100 mg e 100 mg [facility] tablet tablet tablet ty Hospita l Clinics Kenalog 40 Kenalog 40 No 40mg Kenalog 40 [place] [facility] mg/mL mg/mL mg/mL [facility] suspension suspension suspension ty for for for Hospita injection injection injection l Take 40 mg Take 40 mg Take 40 mg Clinics by by by injection injection injection route. route. route. levothyroxi levothyroxi No levothyrox [place] ne 75 mcg ne 75 mcg ine 75 mcg [facility] tablet TAKE tablet TAKE tablet ty 1 TABLET 1 TABLET TAKE 1 Hospi ta EVERY EVERY TABLET l MORNINGON MORNINGON EVERY Clin ics AN EMPTY AN EMPTY MORNINGON STOMACH STOMACH AN EMPTY WITH A WITH A STOMACH GLASS OF GLASS OF WITH A WATER WATER GLASS OF WATER losartan losartan No losartan [facility] 100 100 100 [facility] mg-hydrochl mg-hydrochl mg-hydroch ty orothiazide orothiazide lorothiazi Hospita 25 mg 25 mg de 25 mg l tablet TAKE tablet TAKE tablet Clinics 1 TABLET 1 TABLET TAKE 1 DAILY DAILY TABLET DAILY metoclopram metoclopram No metoclopra [facility] joshua 10 mg joshua 10 mg mide 10 mg Communi tablet tablet tablet ty [facility] l Clinics metoprolol metoprolol No metoprolol [place] [facility] tartrate tartrate tartrate Com adalberto 100 mg 100 mg 100 mg ty tablet Take tablet Take tablet Hospita 1 tablet 1 tablet Take 1 l BID PO BID PO tablet BID Clini cs PO metronidazo metronidazo No metronidaz [place] le 500 mg le 500 mg ole 500 mg [facility] tablet tablet tablet ty [facility] l Clinics omeprazole omeprazole No omeprazole [place] 20 mg 20 mg 20 mg [facility] capsule,del capsule,del capsule,de ty ayed ayed layed Hospita release release release l Clinics ondansetron ondansetron No ondansetro [place] HCl 4 mg HCl 4 mg n HCl 4 mg C [facility] tablet tablet tablet ty [facility] Prolia 60 Prolia 60 No Prolia 60 [place] mg/mL mg/mL mg/mL [facility]i subcutaneou subcutaneou subcutaneo ty s syringe 1 s syringe 1 us syringe Hospita mL mL 1 mL l injection injection injection Clinics every 6 every 6 every 6 months months months Shingrix Shingrix No Shingrix [facility] (PF) 50 (PF) 50 (PF) 50 Commun i mcg/0.5 mL mcg/0.5 mL mcg/0.5 mL ty intramuscul intramuscul intramuscu Hospita ar ar lar l suspension, suspension, suspension Clinics kit kit , kit sodium,pota sodium,pota No sodium,pot [place] ssium,mag ssium,mag assium,mag [facility] sulfates sulfates sulfates ty 17.5 17.5 17.5 Hospita gram-3.13 gram-3.13 gram-3.13 l gram-1.6 gram-1.6 gram-1.6 Cli nics gram oral gram oral gram oral soln soln soln valacyclovi valacyclovi No valacyclov [place] r 1 gram r 1 gram ir 1 gram [facility] tablet TAKE tablet TAKE tablet ty 1 TABLET BY 1 TABLET BY TAKE 1 Hospita MOUTH EVERY MOUTH EVERY TABLET BY l 12 HOURS 12 HOURS MOUTH Clinic s EVERY 12 HOURS zolpidem 5 zolpidem 5 No 1 Q1W zolpidem 5 [place] mg tablet mg tablet mg tablet [facility] Take 1 Take 1 Take 1 ty tablet tablet tablet Hospita every week every week every week l by oral by oral by oral Clinic s route. route. route. amlodipine amlodipine No amlodipine [place] 5 mg tablet 5 mg tablet 5 mg [facility] Take 1 Take 1 tablet ty tablet tablet Take 1 Hospita every day every day tablet l by oral by oral every day Clin ics route. route. by oral route. ergocalcife ergocalcife No ergocalcif [place] [facility] rol rol kendy [facility]i (vitamin (vitamin (vitamin ty D2) 1,250 D2) 1,250 D2) 1,250 Hospita mcg (50,000 mcg (50,000 mcg l unit) unit) (50,000 Clinics capsule capsule unit) capsule gabapentin gabapentin No gabapentin [place] [facility] 300 mg 300 mg 300 mg [facility] capsule 1 capsule 1 capsule 1 ty PO qd PO qd PO qd Hospita l Clinics levothyroxi levothyroxi No levothyrox [place] ne 75 mcg ne 75 mcg ine 75 mcg [facility] tablet Take tablet Take tablet ty 1 tablet 1 tablet Take 1 Hospi ta every day every day tablet l by oral by oral every day Clin ics route in route in by oral the the route in morning. morning. the morning. lidocaine 5 lidocaine 5 No lidocaine [place] % topical % topical 5 % Commu ni ointment ointment topical ty Apply to Apply to ointment [facility] left knee left knee Apply to l TID prn TID prn left knee Clin ics TID prn losartan losartan No losartan [facility] 100 100 100 [facility]i mg-hydrochl mg-hydrochl mg-hydroch ty orothiazide orothiazide lorothiazi Hospita 25 mg 25 mg de 25 mg l tablet Take tablet Take tablet Clinics 1 tablet 1 tablet Take 1 every day every day tablet by oral by oral every day route. route. by oral route. Shingrix Shingrix No Shingrix [facility] (PF) 50 (PF) 50 (PF) 50 Commun i mcg/0.5 mL mcg/0.5 mL mcg/0.5 mL ty intramuscul intramuscul intramuscu Hospita ar ar lar l suspension, suspension, suspension Clinics kit kit , kit tramadol 50 tramadol 50 No tramadol [place] mg tablet mg tablet 50 mg Comm uni Take 1 Take 1 tablet ty tablet tablet Take 1 Hospita every 6-8 every 6-8 tablet l hours by hours by every 6-8 Cl inics oral route. oral route. hours by oral route. Immunizations Ordered Filled Date Status Comments Source Immunization Name Immunization Name influenza, influenza, 2022-08-01 Completed [facility] high-dose, high-dose, 00:00:00 [facility] quadrivalent quadrivalent influenza, influenza, 2022-08-01 Completed [facility] high-dose, high-dose, 00:00:00 [facility] quadrivalent quadrivalent influenza, influenza, 2022-08-01 Completed [facility] high-dose, high-dose, 00:00:00 [facility] quadrivalent quadrivalent Pneumococcal Pneumococcal 2021-07-15 Completed [facility] Conjugate, Conjugate, 00:00:00 Hospital [facility] unspecified unspecified formulation formulation Pneumococcal Pneumococcal 2021-07-15 Completed [facility] Conjugate, Conjugate, 00:00:00 Hospital [facility] unspecified unspecified formulation formulation Pneumococcal Pneumococcal 2021-07-15 Completed [facility] Conjugate, Conjugate, 00:00:00 Hospital [facility] unspecified unspecified formulation formulation SARS-COV-2 COVID-19 2020-11-02 Completed [facility] rs[facility] of MODERNA VACCINE 00:00:00 [facility] SARS-COV-2 COVID-19 2020-11-02 Completed Unive rsity of UNSPECIFIED VACCINE 00:00:00 [facility] SARS-COV-2 SARS-COV-2 2020-11-02 Completed [facility] (COVID-19) vaccine, [facility]COVID[facility]19) [facility], [facility] SARS-COV-2 SARS-COV-2 2020-11-02 Completed [facility] (COVID-19) vaccine, (COVID-19) 00:00:00 [facility] UNSPECIFIED vaccine, UNSPECIFIED SARS-COV-2 SARS-COV-2 2020-11-02 Completed [facility] (COVID-19) vaccine, (COVID-19) 00:00:00 [facility] UNSPECIFIED vaccine, UNSPECIFIED SARS-COV-2 SARS-COV-2 2020-11-02 Completed [place] [facility] (COVID-19) vaccine, (COVID-19) 00:00:00 [facility] UNSPECIFIED vaccine, UNSPECIFIED COVID-19 COVID-19 2020-11-02 Completed [facility] (SARS-COV-2) (SARS-COV-2) 00:00:00 [facility] linics vaccine, vaccine, unspecified unspecified COVID-19 COVID-19 2020-11-02 Completed [facility] (SARS-COV-2) (SARS-COV-2) 00:00:00 [facility] vaccine, vaccine, unspecified unspecified COVID-19 COVID-19 2020-11-02 Completed [facility] (SARS-COV-2) (SARS-COV-2) 00:00:00 [facility] linics vaccine, vaccine, unspecified unspecified COVID-19 COVID-19 2020-11-02 Completed [facility] (SARS-COV-2) (SARS-COV-2) 00:00:00 [facility] vaccine, vaccine, unspecified unspecified SARS-COV-2 COVID-19 2020-10-05 Completed [facility] of MODERNA VACCINE 00:00:00 [facility] SARS-COV-2 COVID-19 2020-10-05 Completed Unive rsity of UNSPECIFIED VACCINE 00:00:00 [facility] SARS-COV-2 SARS-COV-2 2020-10-05 Completed [facility] (COVID-19) vaccine, (COVID-19) 00:00:00 [facility] UNSPECIFIED vaccine, UNSPECIFIED SARS-COV-2 SARS-COV-2 2020-10-05 Completed [facility] (COVID-19) vaccine, (COVID-19) 00:00:00 [facility] UNSPECIFIED vaccine, UNSPECIFIED SARS-COV-2 SARS-COV-2 2020-10-05 Completed [facility] (COVID-19) vaccine, (COVID-19) 00:00:00 [facility] UNSPECIFIED vaccine, UNSPECIFIED SARS-COV-2 SARS-COV-2 2020-10-05 Completed [facility] (COVID-19) vaccine, (COVID-19) 00:00:00 [facility] UNSPECIFIED vaccine, UNSPECIFIED SARS-COV-2 SARS-COV-2 2020-10-05 Completed [facility] (COVID-19) vaccine, (COVID-19) 00:00:00 [facility] UNSPECIFIED vaccine, UNSPECIFIED SARS-COV-2 SARS-COV-2 2020-10-05 Completed [facility] (COVID-19) vaccine, (COVID-19) 00:00:00 [facility] UNSPECIFIED vaccine, UNSPECIFIED SARS-COV-2 SARS-COV-2 2020-10-05 Completed [facility] (COVID-19) vaccine, (COVID-19) 00:00:00 [facility] UNSPECIFIED vaccine, UNSPECIFIED COVID-19 COVID-19 2020-10-05 Completed [facility] (SARS-COV-2) (SARS-COV-2) [facility], unspecified unspecified COVID-19 COVID-19 2020-10-05 Completed [facility] (SARS-COV-2) (SARS-COV-2) 00:00:00 [facility] linics vaccine, vaccine, unspecified unspecified COVID-19 COVID-19 2020-10-05 Completed [facility] (SARS-COV-2) (SARS-COV-2) 00:00:00 [facility] linics vaccine, vaccine, unspecified unspecified COVID-19 COVID-19 2020-10-05 Completed [facility] (SARS-COV-2) (SARS-COV-2) 00:00:00 [facility] vaccine, vaccine, unspecified unspecified influenza, influenza, 2020-08-21 Completed [facility] injectable, injectable, 00:00:00 [facility] quadrivalent quadrivalent influenza, influenza, 2020-08-21 Completed [facility] injectable, injectable, 00:00:00 [facility] quadrivalent quadrivalent influenza, influenza, 2020-08-21 Completed [facility] injectable, injectable, 00:00:00 [facility] quadrivalent quadrivalent influenza, influenza, 2020-08-21 Completed [facility] injectable, injectable, 00:00:00 [facility] quadrivalent quadrivalent influenza, influenza, 2020-08-21 Completed [facility] injectable, injectable, 00:00:00 [facility] quadrivalent quadrivalent influenza, influenza, 2020-08-21 Completed [facility] injectable, injectable, 00:00:00 [facility] quadrivalent quadrivalent influenza, influenza, 2020-08-21 Completed [facility] injectable, injectable, 00:00:00 [facility] quadrivalent quadrivalent influenza, influenza, 2020-08-21 Completed [facility] injectable, injectable, 00:00:00 [facility] quadrivalent quadrivalent influenza, influenza, 2020-08-21 Completed [facility] injectable, injectable, 00:00:00 [facility] quadrivalent quadrivalent influenza, influenza, 2020-08-21 Completed [facility] injectable, injectable, 00:00:00 [facility] quadrivalent quadrivalent influenza, influenza, 2020-08-21 Completed [facility] injectable, injectable, 00:00:00 [facility] quadrivalent quadrivalent influenza, influenza, 2020-08-21 Completed [facility] injectable, injectable, 00:00:00 [facility] quadrivalent quadrivalent influenza, influenza, 2019-07-05 Completed [facility] injectable, injectable, 00:00:00 [facility] quadrivalent quadrivalent influenza, influenza, 2019-07-05 Completed [facility] injectable, injectable, 00:00:00 [facility] quadrivalent quadrivalent influenza, influenza, 2019-07-05 Completed [facility] injectable, injectable, 00:00:00 [facility] quadrivalent quadrivalent influenza, influenza, 2019-07-05 Completed [facility] injectable, injectable, 00:00:00 [facility] quadrivalent quadrivalent influenza, influenza, 2019-07-05 Completed [facility] injectable, injectable, 00:00:00 [facility] quadrivalent quadrivalent influenza, influenza, 2019-07-05 Completed [facility] injectable, injectable, 00:00:00 [facility] quadrivalent quadrivalent influenza, influenza, 2019-07-05 Completed [facility] injectable, injectable, 00:00:00 [facility] quadrivalent quadrivalent influenza, influenza, 2019-07-05 Completed [facility] injectable, injectable, 00:00:00 [facility] quadrivalent quadrivalent influenza, influenza, 2019-07-05 Completed [facility] injectable, injectable, 00:00:00 [facility] quadrivalent quadrivalent influenza, influenza, 2019-07-05 Completed [facility] injectable, injectable, 00:00:00 [facility] quadrivalent quadrivalent influenza, influenza, 2019-07-05 Completed [facility] injectable, injectable, 00:00:00 [facility] quadrivalent quadrivalent influenza, influenza, 2019-07-05 Completed [facility] injectable, injectable, 00:00:00 [facility] quadrivalent quadrivalent SARS-COV-2 COVID-19 Unknown Completed Unive rsity of MODERNA 12+ YRS [facility] VACCINE Branch SARS-COV-2 COVID-19 Unknown Completed Unive rsity of MODERNA 12+ YRS [facility] VACCINE Branch SARS-COV-2 COVID-19 Unknown Completed Unive rsity of UNSPECIFIED VACCINE [facility] SARS-COV-2 COVID-19 Unknown Completed Unive rsity of UNSPECIFIED VACCINE [facility] pneumococcal Unknown Completed [facility] 23-valent vaccine influenza virus Unknown Completed [facility] vaccine, inactivated influenza virus Unknown Completed [facility] vaccine, inactivated influenza, influenza, Unknown [facility]dose, [facility] quadrivalent quadrivalent Pneumococcal Pneumococcal Unknown Completed [facility] Conjugate, Conjugate, Hospital Clini cs unspecified unspecified formulation formulation COVID-19 COVID-19 Unknown Completed [facility] (SARS-COV-2) (SARS-COV-2) [facility] vaccine, vaccine, unspecified unspecified COVID-19 COVID-19 Unknown Completed [facility] (SARS-COV-2) (SARS-COV-2) [facility] linics vaccine, vaccine, unspecified unspecified influenza, influenza, Unknown Completed [facility] injectable, injectable, Hospital Cli [facility]ics quadrivalent quadrivalent influenza, influenza, Unknown Completed [facility] injectable, injectable, Hospital Cli nics quadrivalent quadrivalent Vital Signs Vital Name Observation Time Observation Value Comments Source BMI (Body Mass 2023-06-03 00:00:00 24.7 kg/m2 [facility] BP Diastolic 2023-06-03 00:00:00 64 mm[Hg] [facility] s Height 2023-06-03 00:00:00 70 [in_i] [facility] s BP Systolic 2023-06-03 00:00:00 120 mm[Hg] [facility] s Body Weight 2023-06-03 00:00:00 2752 [oz_av] [facility] s Height 2023-05-06 00:00:00 70 [in_i] [facility] s BMI (Body Mass 2023-05-06 00:00:00 24 kg/m2 [facility] s BP Systolic 2023-05-06 00:00:00 122 mm[Hg] [facility] s Body Weight 2023-05-06 00:00:00 2672 [oz_av] [facility] s BP Diastolic 2023-05-06 00:00:00 78 mm[Hg] [facility] s BP Diastolic 2022-11-30 00:00:00 72 mm[Hg] [facility] s Height 2022-11-30 00:00:00 70 [in_i] [facility] s BMI (Body Mass 2022-11-30 00:00:00 24 kg/m2 [facility] s BP Systolic 2022-11-30 00:00:00 110 mm[Hg] [facility] Body Weight 2022-11-30 00:00:00 2672 [oz_av] [facility] s BP Diastolic 2022-10-06 00:00:00 74 mm[Hg] [facility] s Height 2022-10-06 00:00:00 70 [in_i] [facility] s BMI (Body Mass 2022-10-06 00:00:00 24 kg/m2 [facility]) [facility] BP Systolic 2022-10-06 00:00:00 114 mm[Hg] [facility] s Body Weight 2022-10-06 00:00:00 2672 [oz_av] [facility] s BP Diastolic 2022-04-16 00:00:00 84 mm[Hg] [facility] Height 2022-04-16 00:00:00 70 [in_i] [facility] s BMI (Body Mass 2022-04-16 00:00:00 24.5 kg/m2 [facility] Index) [facility] BP Systolic 2022-04-16 00:00:00 130 mm[Hg] [facility] Body Weight 2022-04-16 00:00:00 2736 [oz_av] [facility] s HEIGHT 2021-08-11 10:57:00 177.8 cm WEIGHT 2021-08-11 10:57:00 74.39 kg Systolic blood 2021-08-08 19:48:00 133 mm[Hg] Univer sity of pressure [facility] Diastolic blood 2021-08-08 19:48:00 81 mm[Hg] Unive rsity of pressure [facility] Heart rate 2021-08-08 19:48:00 66 /min [facility] Body height 2021-08-08 19:48:00 177.8 cm [facility] Body weight 2021-08-08 19:48:00 75.751 kg [facility] BMI 2021-08-08 19:48:00 23.96 kg/m2 [facility] Oxygen saturation in 2021-08-08 19:48:00 98 /min [facility] Arterial blood by [facility] Pulse oximetry Branch BP Diastolic 2021-06-26 00:00:00 65 mm[Hg] [facility] s Height 2021-06-26 00:00:00 70 [in_i] [facility] s BMI (Body Mass 2021-06-26 00:00:00 24 kg/m2 [facility] Index) [facility] BP Systolic 2021-06-26 00:00:00 110 mm[Hg] [facility] s Body Weight 2021-06-26 00:00:00 2672 [oz_av] [facility] s BP Diastolic 2021-04-22 00:00:00 60 mm[Hg] [facility] s Height 2021-04-22 00:00:00 70 [in_i] [facility] s BMI (Body Mass 2021-04-22 00:00:00 24 kg/m2 [facility] Index) [facility] s BP Systolic 2021-04-22 00:00:00 110 mm[Hg] [facility] s Body Weight 2021-04-22 00:00:00 2672 [oz_av] [facility] s BP Diastolic 2021-03-11 00:00:00 58 mm[Hg] [facility] s Height 2021-03-11 00:00:00 70 [in_i] [facility] s BMI (Body Mass 2021-03-11 00:00:00 23.2 kg/m2 [facility]) [facility] s BP Systolic 2021-03-11 00:00:00 128 mm[Hg] [facility] s Body Weight 2021-03-11 00:00:00 2592 [oz_av] [facility] s BP Diastolic 2021-01-28 00:00:00 81 mm[Hg] [facility] s Height 2021-01-28 00:00:00 70 [in_i] [facility] s BMI (Body Mass 2021-01-28 00:00:00 24 kg/m2 [facility]) [facility] s BP Systolic 2021-01-28 00:00:00 139 mm[Hg] [facility] Body Weight 2021-01-28 00:00:00 2672 [oz_av] [facility] s BP Diastolic 2021-01-14 00:00:00 84 mm[Hg] [facility] s Height 2021-01-14 00:00:00 70 [in_i] [facility] s BMI (Body Mass 2021-01-14 00:00:00 23.5 kg/m2 [facility]) [facility] BP Systolic 2021-01-14 00:00:00 134 mm[Hg] [facility] s Body Weight 2021-01-14 00:00:00 2624 [oz_av] [facility] s BP Diastolic 2020-10-11 00:00:00 94 mm[Hg] [facility] s Height 2020-10-11 00:00:00 70 [in_i] [facility] s BMI (Body Mass 2020-10-11 00:00:00 23.4 kg/m2 [facility] s BP Systolic 2020-10-11 00:00:00 178 mm[Hg] [facility] s Body Weight 2020-10-11 00:00:00 2608 [oz_av] [facility] Body Weight 2020-09-13 00:00:00 2672 [oz_av] [facility] s BP Diastolic 2020-09-13 00:00:00 88 mm[Hg] [facility] s Height 2020-09-13 00:00:00 70 [in_i] [facility] s BMI (Body Mass 2020-09-13 00:00:00 24 kg/m2 [facility] s BP Systolic 2020-09-13 00:00:00 148 mm[Hg] [facility] s Temperature Oral (F) 2021-07-17 17:42:00 98.9 F [facility] Heart Rate 2021-07-17 17:42:00 [facility] Respitory Rate 2021-07-17 17:42:00 [facility] Systolic (mm Hg) 2021-07-17 17:42:00 Eleazar [facility] Diastolic (mm Hg) 2021-07-17 17:42:00 [facility] Temperature Oral (F) 2021-07-17 14:24:00 98.4 F [facility] Heart Rate 2021-07-17 14:24:00 [facility] Respitory Rate 2021-07-17 14:24:00 [facility] Systolic (mm Hg) 2021-07-17 14:24:00 Eleazar [facility] Diastolic (mm Hg) 2021-07-17 14:24:00 [facility] Temperature Oral (F) 2021-07-17 10:17:00 98.1 F [facility] Heart Rate 2021-07-17 10:17:00 [facility] Respitory Rate 2021-07-17 10:17:00 [facility] Systolic (mm Hg) 2021-07-17 10:17:00 Eleazar [facility] [place] Diastolic (mm Hg) 2021-07-17 10:17:00 [facility] [place] Weight 2021-07-16 14:00:00 [facility] Height 2021-07-15 01:22:00 177.8 cm [facility] Weight 2021-07-15 01:22:00 [facility] BMI Calculated 2021-07-15 01:22:00 [facility] Height 2021-07-14 13:13:00 177.8 cm [facility] Weight 2021-07-14 13:13:00 [facility] BMI Calculated 2021-07-14 13:13:00 [facility] Height 2021-07-09 17:42:00 177.8 cm [facility] BMI Calculated 2021-07-09 17:42:00 [facility] Temperature Oral (F) 2020-08-29 17:42:00 98.4 F [facility] Heart Rate 2020-08-29 17:42:00 [facility] Respitory Rate 2020-08-29 17:42:00 [facility] [place] Systolic (mm Hg) 2020-08-29 17:42:00 Eleazar [facility] [place] Diastolic (mm Hg) 2020-08-29 17:42:00 [facility] Temperature Oral (F) 2020-08-29 13:25:00 99 F [facility] Heart Rate 2020-08-29 13:25:00 [facility] Respitory Rate 2020-08-29 13:25:00 [facility] [place] Systolic (mm Hg) 2020-08-29 13:25:00 Eleazar [facility] Diastolic (mm Hg) 2020-08-29 13:25:00 [facility] Temperature Oral (F) 2020-08-29 09:54:00 98.7 F [facility] Heart Rate 2020-08-29 09:54:00 [facility] Respitory Rate 2020-08-29 09:54:00 [facility] Systolic (mm Hg) 2020-08-29 09:54:00 Eleazar [facility] [place] Diastolic (mm Hg) 2020-08-29 09:54:00 [facility] Temperature Oral (F) 2020-08-26 06:39:00 98.6 F [facility] Heart Rate 2020-08-26 06:39:00 [facility] Respitory Rate 2020-08-26 06:39:00 [facility] Systolic (mm Hg) 2020-08-26 06:39:00 Eleazar [facility] [place] Diastolic (mm Hg) 2020-08-26 06:39:00 [facility] Temperature Oral (F) 2020-08-26 02:33:00 98.5 F [facility] Heart Rate 2020-08-26 02:33:00 [facility] Respitory Rate 2020-08-26 02:33:00 [facility] Systolic (mm Hg) 2020-08-26 02:33:00 Eleazar rial [facility] Diastolic (mm Hg) 2020-08-26 02:33:00 [facility] Temperature Oral (F) 2020-08-25 21:31:00 98 F [facility] Heart Rate 2020-08-25 21:31:00 [facility] Respitory Rate 2020-08-25 21:31:00 Micheal ratliff [facility] Systolic (mm Hg) 2020-08-25 21:31:00 Eleazar storm [facility] Diastolic (mm Hg) 2020-08-25 21:31:00 Jeremiah Angela Height 2020-08-23 02:13:00 157.48 cm Jesus Everettann Weight 2020-08-23 02:13:00 [facility] BMI Calculated 2020-08-23 02:13:00 Micheal Thomas Procedures Procedure Date / Time Performing Clinician Source Performed bone density 2022-04-16 00:00:00 [facility] MAMMO, screening, 2022-04-16 00:00:00 [facility] KNEE LEFT WO CONTRAST 2021-06-03 15:56:24 [facility] W [facility] CT KNEE LEFT WO CONTRAST 2021-06-03 15:56:24 [facility] W [facility] CT FEMUR LEFT WO IV 2021-06-03 15:56:22 [facility] CT FEMUR LEFT WO IV 2021-06-03 15:56:22 [facility] CONTRAST DEXA, axial skeleton + 2021-01-14 00:00:00 [facility] vertebral fracture [facility] assessment Hysterectomy [facility] Appendectomy [facility] Assess fracture [facility] care<sup>1</sup> Tonsillectomy [facility] Appendectomy [facility] Tonsillectomy [facility] Total Hysterectomy [facility] Plan of Care Planned Activity Planned Date Details Comments Source Future Scheduled 2023-04-30 Influenza Vaccine (#1) [facility] 00:00:00 [code = Influenza Medical Ce nter Vaccine (#1)] Diagnostic Test 2022-11-30 BMP, serum or plasma [facility] Pending 00:00:00 [code = BMP, serum or Hospit [facility] plasma] Future Scheduled 2022-08-[address] [facility] 00:00:00 (12+) [code = Medical Center DEPRESSION SCREENING (12+)] Future Scheduled 2022-08-30 FALLS RISK SCREENING [facility] 00:00:00 [code = FALLS RISK Medical C enter SCREENING] Future Scheduled 2022-08-[address] [facility] Test 00:00:00 [facility] Screening (12+) [code = Tobacco Cessation Counseling and Screening (12+)] Future Scheduled 2020-12-28 COVID-19 VACCINE (3 - [facility] 00:[facility]00 Booster for [facility] series) [code = COVID-19 VACCINE (3 - Booster for Moderna series)] Future Scheduled 2020-02-05 PNEUMOCOCCAL 65+ YRS [facility] Test 00:00:00 (1 - PCV) [code = Medical Ce nter PNEUMOCOCCAL 65+ YRS (1 - PCV)] Future Scheduled 2005 SHINGLES VACCINES ([address] [facility] 00:00:00 of 2) [code = SHINGLES Medic ia Center VACCINES (1 of 2)] Future Scheduled 1974 DTAP/TDAP/TD VACCINES [facility] 00:00:00 (1 - Tdap) [code = Medical C enter DTAP/TDAP/TD VACCINES (1 - Tdap)] Future Scheduled 1973 HEPATITIS C SCREENING [facility] 00:00:00 [code = HEPATITIS C Medical Center SCREENING] Future Scheduled [address] [facility] [facility] [code = 838097010] Future Scheduled [address] [facility] 00:00:00 (combo) [code = CT Medical C enter Colonography (combo)] Future Scheduled [address] [facility] 00:00:00 malignant neoplasm of Medica l Center colon (procedure) [code = 009784666] Future Scheduled [address] [facility] 00:00:00 malignant neoplasm of [facility] Center colon (procedure) [code = 714805450] Future Scheduled 1955 DXA SCAN [code = DXA [facility] 00:00:00 SCAN] Medical Center Future Scheduled [address] [facility] 00:00:00 malignant neoplasm of [facility] Center colon (procedure) [code = 350180909] Future Scheduled [address] [facility] 00:00:00 malignant neoplasm of Medica l Center colon (procedure) [code = 631500292] Future Scheduled 1955 Sigmoidoscopy [code = [facility]00 Sigmoidoscopy] [facility] alvares Future Appointment 2023-07-13 Augustine Emery, [address] [facility] 07:00:00 Cherelle; [address], [place] [address] Encounters Start End Encounter Admission Attending Care Care Encounter Source Date/Time Date/Time Type Type Clinicians Facility Department ID 2022-12-11 Outpatient [facility] [id number] [place] 12:22:[id number] [facility] 2022-11-23 Outpatient [facility] [id number] [place] 08:51:[id number] [facility] 2021-10-29 Outpatient [facility] [id number] [place] 15:21:50 Health 2021-10-28 Outpatient BRANNONCaryCALEB [facility] [id number] [place] 09:29:[address] [facility] 2021-10-24 Outpatient [facility] [id number] [place] 15:10:[address] [facility] 2021-08-20 Outpatient [facility] [id number] [place] 13:37:26 Health 2021-07-23 Outpatient [facility] [id number] [place] 11:18:[address] [facility] 2021-07-18 Outpatient CALEB DENNISON [facility] [id number] [place] 11:10:24 Health 2021-04-01 Outpatient [facility] [id number] [place] 13:51:[address] [facility] 2021-03-31 Outpatient [facility] [id number] [place] 08:23:20 Health 2021-03-14 Outpatient [facility] [id number] [place] 10:29:49 Health 2021-01-04 Outpatient BRANNONCaryCALEB [facility] [id number] [place] 03:31:[address] [facility] 2019-10-17 Inpatient EVELIO CohneEVERARDO DAYS [id number] [facility] 10:22:00 Brian 26 [facility] 2019-09-28 Inpatient Shea, EVERARDO HCATO [id number] [facility] 09:45:00 Brian [facility] 2023-06-03 2023-06-03 Rashaad [facility] [place] [id number] [place] 00:00:00 00:00:00 [facility] - ty DO: [address] Hospit a [facility], [facility] [place], [place] CLINIC, [address] [place] , Ph. 2023-05-06 2023-05-06 Rashaad [facility] [place] [id number] [place] 00:00:00 00:00:00 [facility] - ty DO: [address] Hospit a [facility], [facility] [place] [place] CL[place]IC, [address] [place] , Ph. 2023-04-30 2023-04-30 Outpatient [facility] [id number] [place] 00:00:00 00:00:00 907 [facility] 2023-04-30 2023-04-30 Outpatient [facility] [id number] [place] 00:00:00 00:00:00 005 [facility] 2023-01-07 2023-01-07 Outpatient [facility] [id number] [place] 00:00:00 00:00:00 511 [facility] 2022-12-29 2022-12-29 Outpatient [facility] [id number] [place] 09:00:00 09:00:00 Health 2022-12-15 2022-12-15 Outpatient [facility] [id number] [place] 09:15:00 09:15:00 Health 2022-12-01 2022-12-01 Outpatient CALEB DENNISON [facility] [id number] [place] 09:15:00 09:15:00 Health 2022-12-01 2022-12-01 Outpatient [facility] [id number] [place] 09:15:00 09:15:00 Health 2022-11-30 2022-11-30 Rashaad [facility] [place] [id number] [place] 00:00:00 00:00:00 [facility] ty DO: [address] Hospit michael [facility], HOSPITAL Clinic [place], [place] CLINIC, [address] LEVY , Ph. 2022-11-24 2022-11-24 Outpatient [facility] [id number] [place] 00:00:00 00:00:00 328 Commun i ty [facility] Clinics 2022-11-24 2022-11-24 Outpatient [facility] [id number] [place] 00:00:00 00:00:00 403 [facility] ty [facility] Clinics 2022-10-06 2022-10-06 Rashaad [facility] [place] [id number] [place] 00:00:00 00:00:00 [facility] - ty DO: [address] Hospit a [facility], HOSPITAL Clinic [place], [place] CLINIC, [address] LEVY , Ph. 2022-09-30 2022-09-30 Outpatient [facility] [id number] [place] 00:00:00 00:00:00 201 [facility] ty [facility] Clinics 2022-09-30 2022-09-30 Outpatient [facility] [id number] [place] 00:00:00 00:00:00 207 Commun i ty [facility] Clinics 2022-04-16 2022-04-16 Outpatient [facility] [id number] [place] 00:00:00 00:00:00 818 Commun i ty [facility]osp[facility] Clinics 2022-04-16 2022-04-16 Rashaad [facility] [place] 18 [place] 00:00:00 00:00:00 [facility] - ty DO: [address] [facility] [place] [facility] [address] LEVY , Ph. 2022-04-16 2022-04-16 Outpatient Levy [facility] [id number] 00:00:00 00:00:00 Rashaad [id number] Mynor [id number] 2022-04-14 2022-04-14 Outpatient [facility] [id number] [place] 00:00:00 00:00:00 816 Commun i ty [facility]osp[facility] Clinics 2022-03-03 2022-03-03 Outpatient [facility] [id number] [place] 11:45:00 11:45:00 705 [facility] ty [facility] 2021-10-28 2021-10-28 Office BrannonCaleb diana UTP [id number] [place] 09:00:00 09:28:[address] [id number] Health [id number] 2021-09-25 2021-09-25 Outpatient BREANNE [facility] [id number] [place] 07:47:00 07:47:00 202 Commun i ty [facility] Clinics 2021-08-26 2021-08-26 Office Caleb Dennison [facility] [id number] [place] 09:15:00 09:15:00 Visit FAUZIA MARES 350.1.13.58 Health 9.2.7.2.686 [id number] 1 2021-08-23 2021-08-23 Patient Renae Ferreira [facility] 1.2.840.114 [id number] Univers 00:00:00 00:00:00 Secure B. HEALTH 350.1.13.10 ity of [place] 4.2.7.2.686 [facility] [phone] [address] ([facility]) 2021-08-12 2021-08-12 Acetylene Torch Operator Lab, Cedrick Norris DCMB 1.2.840.1 14 [id number] Univers 08:06:22 08:19:10 Visit Jerrod Rodriguez [facility] 350.1.13.10 ity of [place] 4.2.7.2.686 Ward as MILA?BLEA [phone] In myke [address] [facility] 2021-08-12 2021-08-12 Outpatient R CHERELLE [facility] [id number] Univers 08:15:00 08:15:00 JERROD bullock [facility] 2021-08-11 2021-08-11 Outpatient [facility] [id number] [facility] 10:47:38 10:47:38 JERAMY 2021-08-08 2021-08-08 Outpatient [facility] [id number] Univers 14:00:00 16:49:27 JERROD kortney [facility] 2021-08-08 2021-08-08 [facility] 1.2.944.707 [id number] Univers 14:00:00 16:49:27 Visit Jerrod [facility] 350.1.13.10 it y of [place] 4.2.7.2.686 Ward as MILA?BLEA [phone] In myke GERTRUDIS [address] MEDICAL OFFICE [facility] 2021-08-08 2021-08-08 Orders Doctor CALEB 1.2.840.114 [id number] Univers 00:00:00 00:00:00 Only Unassigned, RU 350.1.13.10 ity of [place] [facility] 4.2.7.2.686 Ward as [phone] [address] 2021-07-14 2021-07-18 Inpatient [facility] [id number] Memoria 15:44:00 00:00:00 r Julio César 01 [facility] [place] 2021-07-14 2021-07-17 Outpatient Karlos [facility] [id number] 09:44:00 18:00:00 Neftali 2021-07-14 2021-07-17 Inpatient U KARLOS [facility] MED 7501 [facility] 09:44:00 18:00:00 NEFTALI 2021-07-17 2021-07-17 Outpatient BREANNE [facility] [id number] [place] 12:32:00 12:32:00 118 [facility] 2021-07-14 2021-07-14 [facility]T [facility] OP CALEB DENNISON EXT MSRDP 1.2.840.11 4 [id number] [place] 07:31:56 10:31:56 LOCATION 350.1.13.58 H ealth 9.2.7.2.686 [id number] 1 2021-07-14 2021-07-14 EXT [facility] OP Caleb Dennison EXT MSRDP 1.2.840.11 4 [id number] [place] 07:31:56 10:31:56 LOCATION 350.1.13.58 H ealth 9.2.7.2.686 [id number] 2021-06-26 2021-06-26 Outpatient [facility] [id number] -[id number] [place] 12:09:00 12:09:00 028 Commun i ty [facility]osp[facility] Clinics 2021-06-26 2021-06-26 Outpatient Levy, [facility] [id number] 00:00:00 00:00:00 [facility] [id number] [place] [id number] [id number] 2021-06-26 Rashaad [facility] - [place] 00:00:00 00:00:00 [facility] DO: [address] Hospit a [facility] [address], HOSPITAL Clinic s [place], [facility], [address] LEVY , Ph. 2021-06-20 2021-06-20 Outpatient [facility] [id number] -[id number] [place] 11:10:00 11:10:00 022 Commun i ty Hosp[facility] Clinics 2021-06-20 2021-06-20 Outpatient [facility] [id number] -[id number] [place] 11:10:00 11:10:00 025 Commun i ty Hosp[facility] Clinics 2021-06-11 2021-06-11 Rosamaria Christina 1.2.840.11 4 [id number] DC 00:00:00 00:00:00 Only Rosamaria Mcfarland TRAUMA 350.1.13.58 Health CLINIC 9.2.7.2.686 [id number] 1 2021-06-10 2021-06-10 Office Caleb Dennison UTP 1.2.840.114 [id number] [place] 08:50:26 09:31:07 Visit TRAUMA 350.1.13.58 [facility] 9.2.7.2.686 [id number] 1 2021-06-03 2021-06-04 Outpt Diag nullFlavo [facility] [id number] Memoria 15:29:00 04:59:00 Services r Outpatient [address] [facility] 2021-06-03 2021-06-03 Outpatient Amy 2.16.840. 2.16.840.1. 4 [id number] 10:29:00 23:59:00 Shilpa 1.861751. 052068.3.61 02 [place] 3.615.134 5.134 2021-05-22 2021-05-22 Outpatient [facility] [id number] -[id number] [place] 01:13:00 01:13:00 925 Commun i ty Hospita [facility] Clinics 2021-05-22 2021-05-22 Outpatient [facility] [id number] -[id number] [place] 01:13:00 01:13:00 928 Commun i ty [facility]osp[facility] Clinics 2021-05-22 2021-05-22 Orders Rosamaria Mcfarland UTP 1.2.840.11 4 [id number] DC 00:00:00 00:00:00 Only Rosamaria Mcfarland TRAUMA 350.1.13.58 Health CLINIC 9.2.7.2.686 [id number] 1 2021-04-28 2021-04-28 Outpatient [facility] [id number] -[id number] [place] 12:04:00 12:04:00 830 Commun i ty [facility]osp[facility] Clinics 2021-04-24 2021-04-24 EXT [facility] OP Amy, EXT MSRDP 1.2.840.114 1 [id number] DC 00:00:00 00:00:00 Shilpa LOCATION 350.1.13.58 H ealth 9.2.7.2.686 [id number] 0 2021-04-24 2021-04-24 EXT MHH OP Amy, EXT MSRDP 1.2.840.114 1 [id number] [place] 00:00:00 00:00:00 Shilpa LOCATION 350.1.13.58 H ealth 9.2.7.2.686 [id number] 0 2021-04-24 2021-04-24 EXT MHH OP Amy, EXT MSRDP 1.2.840.114 1 [id number] [place] 00:00:00 00:00:00 Shilpa LOCATION 350.1.13.58 H ealth 9.2.7.2.686 [id number] 0 2021-04-24 2021-04-24 EXT MHH OP Amy, EXT MSRDP 1.2.840.114 1 [id number] [place] 00:00:00 00:00:00 Shilpa LOCATION 350.1.13.58 H ealth 9.2.7.2.686 [id number] 2021-04-22 2021-04-22 Outpatient LEVY_R [facility] [id number] -[id number] [place] 04:36:00 04:36:00 824 Commun i ty Hospita [facility] 2021-04-22 2021-04-22 Outpatient Levy [facility] [id number] [id number] 00:00:00 00:00:00 Rashaad [id number] Mynor [id number] 2021-04-22 2021-04-22 [place] - [place] 24 [place] 00:00:00 00:00:00 [facility] DO: [address] [facility] [address] [place], [facility], [address] LEVY , Ph. 2021-04-21 2021-04-21 EXT MHH OP Amy, EXT MSRDP 1.2.840.114 1 [id number] [place] 00:00:00 00:00:00 Shilpa LOCATION 350.1.13.58 H ealth 9.2.7.2.686 [id number] 2021-04-21 2021-04-21 EXT [facility] OP Amy, EXT MSRDP 1.2.840.114 1 [id number] [place] 00:00:00 00:00:00 Shilpa LOCATION 350.1.13.58 H ealth 9.2.7.2.686 [id number] 0 2021-04-19 2021-04-19 Outpatient [facility] [id number] [place] 04:30:00 04:30:00 821 Commun i ty Hospita l Clinics 2021-04-17 2021-04-17 Outpatient [facility] [id number] -[id number] [place] 02:39:00 02:39:00 819 Commun i ty Hospita [facility] Clinics 2021-04-15 2021-04-15 Orders HeladioRosamaria scott UTP 1.2.840.11 4 [id number] [place] 00:00:00 00:00:00 Only Rosamaria Mcfarland TRAUMA 350.1.13.58 Health CLINIC 9.2.7.2.686 [id number] 1 2021-04-10 2021-04-10 EXT [facility] OP Amy, EXT MSRDP 1.2.840.114 1 [id number] [place] 00:00:00 00:00:00 Shilpa LOCATION 350.1.13.58 H ealth 9.2.7.2.686 [id number] 0 2021-04-10 2021-04-10 EXT [facility] OP Amy, EXT MSRDP 1.2.840.114 1 [id number] [place] 00:00:00 00:00:00 Shilpa LOCATION 350.1.13.58 H ealth 9.2.7.2.686 [id number] 2021-04-10 2021-04-10 EXT MH OP Amy, EXT MSRDP 1.2.840.114 1 [id number] [place] 00:00:00 00:00:00 Shilpa LOCATION 350.1.13.58 H ealth 9.2.7.2.686 [id number] 2021-04-10 2021-04-10 EXT MHH OP Amy, EXT MSRDP 1.2.840.114 1 [id number] [place] 00:00:00 00:00:00 Shilpa LOCATION 350.1.13.58 H ealth 9.2.7.2.686 [id number] 2021-04-01 2021-04-01 Office GILBERTO Reyes 1.2.840.114 [id number] [place] 13:23:36 14:08:10 Visit Shilpa TRAUMA 350.1.13.58 He [facility] CLINIC 9.2.7.2.686 [id number] 1 2021-03-11 2021-03-11 Outpatient [facility] [id number] -[id number] [place] 03:28:00 03:28:00 713 Commun i ty Hosp[facility] 2021-03-11 2021-03-11 Rashaad [facility] [place] - [place] 00:00:00 00:00:00 [facility] DO: [address] [facility], [address] LEVY , Ph. 2021-03-11 2021-03-11 Outpatient Levy [facility] [id number] 00:00:00 00:00:00 Rashaad [id number]-[id number] Mynor [id number] 2021-01-28 2021-01-28 Outpatient [facility] [id number] -[id number] [place] 09:45:00 09:45:00 601 Commun i ty Hospita l [facility] 2021-01-28 2021-01-28 Rashaad [facility] [place] 00:00:00 00:00:00 [facility] DO: [address] Hospit [facility], [address] LEVY , Ph. [phone] 2021-01-28 2021-01-28 Outpatient Levy [facility] [id number] 00:00:00 00:00:00 Rashaad [id number] Mynor [id number] 2021-01-14 2021-01-14 Outpatient [facility] [id number] [place] 10:39:00 10:39:00 518 Commun i ty Hospita l Clinics 2021-01-14 2021-01-14 Outpatient [facility] [id number] -[id number] [place] 10:39:00 10:39:00 528 Commun i ty Hospita l Clinics 2021-01-14 2021-01-14 Rashaad [facility] [place] 00:00:00 00:00:[address] [facility] DO: [address] Hospit a [place], [place] CLINIC, [address] LEVY , Ph. 2021-01-14 2021-01-14 Outpatient Lockett [facility] [id number] 00:00:00 00:00:00 Rashaad [id number] Mynor [id number] 2021-01-14 2021-01-14 Outpatient Levy [facility] [id number] [id number] 00:00:00 00:00:00 Rashaad [id number] Mynor [id number] 2020-11-28 2020-11-28 Outpatient [facility] [id number] [place] 01:03:00 01:03:00 401 Commun i ty Hospita l Clinics 2020-11-02 2020-11-02 Outpatient [facility] [id number] Univers 11:05:00 11:05:00 [facility] 2020-10-24 2020-10-24 Outpatient [facility] [id number] [place] 01:01:00 01:01:00 225 Commun i ty Hospita l Clinics 2020-10-21 2020-10-21 Outpatient [facility] [id number] -[id number] [place] 02:12:00 02:12:00 222 Commun i ty Hospita l Clinics 2020-10-11 2020-10-11 Outpatient [facility] [id number] [place] 04:57:00 04:57:00 212 Commun i ty Hospita l Clinics 2020-10-11 2020-10-11 Outpatient Levy [facility] [id number] 00:00:00 00:00:00 Rashaad [id number] Mynor [id number] 2020-10-11 2020-10-11 Rashaad [facility] [place] - [place] 12 [place] 00:00:00 00:00:00 [facility] DO: [address] Hospit a [facility] l [address], HOSPITAL Clinic s [facility], [address] LEVY , Ph. [phone] 2020-10-05 2020-10-05 Outpatient [facility] [id number] Univers 11:00:00 11:00:00 [facility] 2020-09-17 2020-09-17 Outpatient [facility] [id number] [place] 12:37:00 12:37:00 119 Commun i ty Hospita l Clinics 2020-09-13 2020-09-13 Outpatient [facility] [id number] -[id number] [place] 04:34:00 04:34:00 115 Commun i ty Hospita l Clinics 2020-09-13 2020-09-13 Outpatient Levy [facility] [id number] 00:00:00 00:00:00 Rashaad [id number] Mynor [id number] 2020-09-13 2020-09-13 Rashaad [facility] [place] - [place] 15 [place] 00:00:00 00:00:00 [facility] DO: [address] Hospit a [facility] [address], HOSPITAL Clinic s [place], [place] CLINIC, [address] LEVY , Ph. [phone] 2020-08-22 2020-08-29 Inpatient [facility] [id number] Memoria 06:38:44 22:08:00 r [place] 00 l [facility] 2020-08-22 2020-08-29 Outpatient Bassam Calderon [facility] [id number] 00:38:44 16:08:00 00 2020-08-22 2020-08-22 Outpatient Tom [facility] [id number] 00:38:44 00:38:44 Allegra 00 [place] 2020-08-13 2020-08-13 Acetylene Torch Operator 2, [facility] [place] 1.2.840.114 [id number] 14:41:43 14:56:43 Visit Cricket 350.1.13.10 [place] 4.2.7.2.686 Professio [id number] [address] 2020-08-13 2020-08-13 Acetylene Torch Operator 2, [facility] Lab [facility] 1.2.840.114 [id number] [facility] 14:41:43 14:56:43 Visit Mir Jacobs 350.1.1 3.10 ity of [place] 4.2.7.2.686 Chepe s Professio [phone] In dical [address] 2020-08-13 2020-08-13 Outpatient R KOJO [facility] [id number] Univers 14:30:00 14:30:00 MIR Fregoso o f [facility] 2020-08-13 2020-08-13 Orders Doctor ELLIS 1.2.840.114 [id number] 00:00:00 00:00:00 Only Unassigned, RU 350.1.13.10 [place] [facility] 4.2.7.2.686 [id number] 2020-08-13 2020-08-13 Orders Doctor ELLIS 1.2.840.114 [id number] Univers 00:00:00 00:00:00 Only Unassigned, RU 350.1.13.10 ity of [place] [facility] 4.2.7.2.686 Ward as [id number] [place] [address] [place] 2019-12-18 2019-12-18 Outpatient BREANNE [facility] [id number] [place] 10:17:00 10:17:00 112 Commun i ty Hospita l Clinics 2019-06-05 2019-06-05 Out[facility] [id number] Common 13:19:00 13:19:00 [place] [facility] 2019-05-29 2019-05-29 Outpatient [facility] [id number] Common 16:20:00 16:20:00 t [place] [facility] 2018-12-12 2018-12-12 Outpatient [facility] 25 [id number] Common 09:52:00 09:52:00 t [place] [facility] 2018-11-24 2018-11-24 Outpatient [facility] 21 [id number] Common 08:20:00 08:20:00 t [place] [facility] 2018-11-04 2018-11-04 Outpatient [facility] 23 [id number] Common 11:30:00 11:30:00 t Specialty/U Sp dread Specialty rology - [facility]Urology Clinic [facility] 2018-10-11 2018-10-11 Out[facility] 23 [id number] Common 10:30:00 10:30:00 t Specialty/U Sp dread Specialty rology - [facility] /[facility]rology Clinic [facility] 2018-10-10 2018-10-10 Outpatient [facility] 24 [id number] Common 12:57:00 12:57:00 t Specialty/U Sp dread Specialty rology - [facility] /[facility]rology Clinic [facility] 2018-10-03 2018-10-03 Outpatient [facility] 24 [id number] Common 10:32:00 10:32:00 t [facility] 2018-09-15 2018-09-15 Outpatient [facility] 23 [id number] Common 09:00:00 09:00:00 t Specialty/U Sp dread Specialty rology [facility] /Urology Clinic [facility] 2018-09-05 2018-09-05 Out[facility] [id number] Common 14:40:00 14:40:00 t [place] [facility] [facility] [place] [facility] 2018-09-02 2018-09-02 Outpatient [facility] 23 [id number] Common 09:15:00 09:15:00 t [place] Sp[facility] 2018-08-05 2018-08-05 Outpatient [facility] 19 [id number] Common 11:30:00 11:30:00 t Specialty/U Sp dread Specialty rology - [facility] /Urology Clinic [facility] 2018-05-27 2018-05-27 Outpatient [facility] 13 [id number] Common 09:00:00 09:00:00 t [place] [facility] [place] [facility] 2018-05-06 2018-05-06 Outpatient [facility] 14 [id number] Common 11:00:00 11:00:00 t Specialty/U Sp dread Specialty rology - [facility]rology Clinic [facility] 2018-04-28 2018-04-28 Outpatient [facility] 15 [id number] Common 12:40:00 12:40:00 t [place] [facility] [place] [facility] 2018-04-12 2018-04-12 Outpatient [facility] 15 [id number] Common 15:07:00 15:07:00 t [place] [facility] [place] [facility] 2018 2018 Outpatient [facility] 13 [id number] Common 11:30:00 11:30:00 t Specialty/U Sp dread Specialty rology - [facility]rology Clinic [facility] 2018-01-25 2018-01-25 Outpatient [facility] 14 [id number] Common 09:38:00 09:38:00 t [place] [facility] [facility] [place] [facility] Results Test Description Test Time Test Comments Results Result Comments Source CHEM PANEL 2021-07-17 12:15:00 Test Item Value Reference Range Interpretation Comme nts Glucose Lvl (test code = Glucose Lvl) 86 70-99 [facility]2021-11-18 12:15:00 Test Item Value Reference Range Interpretation Comments BUN (test code = BUN) 9 7-22 [facility]2021-11-18 12:15:00 Test Item Value Reference Range Interpretation Comments Creatinine Lvl (test code = Creatinine 0.70 0.50-1.40 Lvl) [facility]2021-11-18 12:15:00 Test Item Value Reference Range Interpretation Comments Sodium Lvl (test code = Sodium Lvl) 136 135-145 [id number] 12:15:00 Test Item Value Reference Range Interpretation Comments Potassium Lvl (test code = Potassium 3.9 3.5-5.1 Lvl) [facility] [id number] 12:15:00 Test Item Value Reference Range Interpretation Comments Chloride Lvl (test code = Chloride Lvl) 102 95-109 [facility]2021-11-18 12:15:00 Test Item Value Reference Range Interpretation Comments CO2 (test code = CO2) 27 24-32 [facility]2021-11-18 12:15:00 Test Item Value Reference Range Interpretation Comments AGAP (test code = AGAP) 10.9 10.0-20.0 [facility] [id number] 12:15:00 Test Item Value Reference Range Interpretation Comments Calcium Lvl (test code = Calcium Lvl) 8.3 8.5-10.5 [facility]2021-11-18 12:15:00 Test Item Value Reference Range Interpretation Comments eGFR (test code = eGFR) 91 [facility]hdjckhFLSLCWYJLQ4606-81-45 12:15:00 Test Item Value Reference Range Interpretation Comments WBC (test code = WBC) 4.7 3.7-10.4 [facility] HospitalGogdbjjXHCYCBJQPC1991-82-32 12:15:00 Test Item Value Reference Range Interpretation Comments RBC (test code = RBC) 2.56 4.20-5.40 [facility] HospitalSqfypzpCOCXBZTNKV9979-03-62 12:15:00 Test Item Value Reference Range Interpretation Comments Hgb (test code = Hgb) 7.6 12.0-16.0 [facility] HospitalMocbnciFPNXQFLFXB4875-65-85 12:15:00 Test Item Value Reference Range Interpretation Comments Hct (test code = Hct) 22.9 36.0-48.0 [facility] HospitalQcafcsdWRZQAJQAWA8610-07-87 12:15:00 Test Item Value Reference Range Interpretation Comments MCV (test code = MCV) 89.4 80.0-98.0 [facility] HospitalKvcoqlyXBXJIJZJYQ1165-00-16 12:15:00 Test Item Value Reference Range Interpretation Comments MCH (test code = MCH) 29.9 pg 27.0-31.0 [facility] HospitalHptpmheQYQNCSOKOV4076-84-05 12:15:00 Test Item Value Reference Range Interpretation Comments MCHC (test code = MCHC) 33.4 32.0-36.0 [facility] HospitalXdgdlnqJNACORGUKW9473-62-37 12:15:00 Test Item Value Reference Range Interpretation Comments RDW (test code = RDW) 14.1 11.5-14.5 [facility] HospitalCwpnajcDWMHSPMNVF6864-33-23 12:15:00 Test Item Value Reference Range Interpretation Comments Platelet (test code = Platelet) 167 133-450 [facility] HospitalImbeealIRFQMXMFRA4970-82-25 12:15:00 Test Item Value Reference Range Interpretation Comments MPV (test code = MPV) 9.1 7.4-10.4 [facility] HospitalBdsgyvpZNNQPBQFNI2378-07-46 12:15:00 Test Item Value Reference Range Interpretation Comments Segs (test code = Segs) 65.4 45.0-75.0 [place] 267911-11-18 12:15:00 Test Item Value Reference Range Interpretation Comments Lymphocytes (test code = Lymphocytes) 18.4 20.0-40.0 [facility] HospitalIcoryrrFDSGDPHLGE9906-73-79 12:15:00 Test Item Value Reference Range Interpretation Comments Monocytes (test code = Monocytes) 10.5 2.0-12.0 [place] 267911-11-18 12:15:00 Test Item Value Reference Range Interpretation Comments Eosinophils (test code = Eosinophils) 3.7 <=4.0 [facility] HospitalVyxrjrfDRPQHNPAGL5270-20-98 12:15:00 Test Item Value Reference Range Interpretation Comments Basophils (test code = Basophils) 2.0 <=1.0 [place] [address]-11-18 12:15:00 Test Item Value Reference Range Interpretation Comments Neutrophils # (test code = Neutrophils 3.1 1.5-8.1 #) [place] [address]-11-18 12:15:00 Test Item Value Reference Range Interpretation Comments Lymphocytes # (test code = Lymphocytes 0.9 1.0-5.5 #) [place] [address]-11-18 12:15:00 Test Item Value Reference Range Interpretation Comments Monocytes # (test code = Monocytes #) 0.5 <=0.8 [place] [address]-11-18 12:15:00 Test Item Value Reference Range Interpretation Comments Eosinophils # (test code = Eosinophils 0.2 <=0.5 #) [place] [address]-11-18 12:15:00 Test Item Value Reference Range Interpretation Comments Basophils # (test code = Basophils #) 0.1 <=0.2 [place] [address]-11-17 21:23:00 Test Item Value Reference Range Interpretation Comments Glucose Lvl (test code = Glucose Lvl) 126 70-99 [place] [address]-11-17 21:23:00 Test Item Value Reference Range Interpretation Comments BUN (test code = BUN) 14 7-22 [place] [address]-11-17 21:23:00 Test Item Value Reference Range Interpretation Comments Creatinine Lvl (test code = Creatinine 0.92 0.50-1.40 Lvl) [place] 325061-11-17 21:23:00 Test Item Value Reference Range Interpretation Comments Sodium Lvl (test code = Sodium Lvl) 130 135-145 [place] [address]-11-17 21:23:00 Test Item Value Reference Range Interpretation Comments Potassium Lvl (test code = Potassium 4.0 3.5-5.1 Lvl) [place] [address]-11-17 21:23:00 Test Item Value Reference Range Interpretation Comments Chloride Lvl (test code = Chloride Lvl) 98 95-109 [place] 325061-11-17 21:23:00 Test Item Value Reference Range Interpretation Comments CO2 (test code = CO2) 25 24-32 [place] [address]-11-17 21:23:00 Test Item Value Reference Range Interpretation Comments Calcium Lvl (test code = Calcium Lvl) 8.2 8.5-10.5 [place] 325061-11-17 21:23:00 Test Item Value Reference Range Interpretation Comments AGAP (test code = AGAP) 11.0 10.0-20.0 [place] 325061-11-17 21:23:00 Test Item Value Reference Range Interpretation Comments eGFR (test code = eGFR) 65 [place] 325061-11-17 17:08:00 Test Item Value Reference Range Interpretation Comments Glucose Lvl (test code = Glucose Lvl) 108 70-99 [place] 325061-11-17 17:08:00 Test Item Value Reference Range Interpretation Comments BUN (test code = BUN) 15 7-22 [facility]2021-11-17 17:08:00 Test Item Value Reference Range Interpretation Comments Creatinine Lvl (test code = Creatinine 0.91 0.50-1.40 Lvl) [facility]2021-11-17 17:08:00 Test Item Value Reference Range Interpretation Comments Sodium Lvl (test code = Sodium Lvl) 130 135-145 [place] [id number] 17:08:00 Test Item Value Reference Range Interpretation Comments Potassium Lvl (test code = Potassium 3.7 3.5-5.1 Lvl) [facility]2021-11-17 17:08:00 Test Item Value Reference Range Interpretation Comments Chloride Lvl (test code = Chloride Lvl) 99 95-109 [facility]2021-11-17 17:08:00 Test Item Value Reference Range Interpretation Comments CO2 (test code = CO2) 26 24-32 [place] [id number] 17:08:00 Test Item Value Reference Range Interpretation Comments Calcium Lvl (test code = Calcium Lvl) 8.4 8.5-10.5 [place] [id number] 17:08:00 Test Item Value Reference Range Interpretation Comments AGAP (test code = AGAP) 8.7 10.0-20.0 [place] 325061-11-17 17:08:00 Test Item Value Reference Range Interpretation Comments eGFR (test code = eGFR) 66 [place] [id number] 12:18:00 Test Item Value Reference Range Interpretation Comments Magnesium Lvl (test code = Magnesium 2.0 1.8-2.4 Lvl) [facility] [id number] 12:18:00 Test Item Value Reference Range Interpretation Comments Phosphorus (test code = Phosphorus) 2.4 2.5-4.5 [id number] 12:18:00 Test Item Value Reference Range Interpretation Comments WBC (test code = WBC) 3.9 3.7-10.4 [facility] HospitalAwvmellCGAVHHEHWE5009-56-58 12:18:00 Test Item Value Reference Range Interpretation Comments RBC (test code = RBC) 2.57 4.20-5.40 [facility] HospitalFilkzsvEFKCTJBLCS6805-16-54 12:18:00 Test Item Value Reference Range Interpretation Comments Hgb (test code = Hgb) 7.9 12.0-16.0 [facility] HospitalTkrsphgLKXWINYCXK7700-21-55 12:18:00 Test Item Value Reference Range Interpretation Comments Hct (test code = Hct) 23.0 36.0-48.0 [facility] HospitalFiyvhhdBVJAJGHLOY5750-00-78 12:18:00 Test Item Value Reference Range Interpretation Comments MCV (test code = MCV) 89.4 80.0-98.0 [facility] HospitalNfprmbdZPOMMLIFHG0734-26-92 12:18:00 Test Item Value Reference Range Interpretation Comments MCH (test code = MCH) 30.6 pg 27.0-31.0 [facility] HospitalNetcplmSIJHZAMZRI3104-28-95 12:18:00 Test Item Value Reference Range Interpretation Comments MCHC (test code = MCHC) 34.2 32.0-36.0 [facility] HospitalIbwmgufLMDJGNHOXA3903-06-71 12:18:00 Test Item Value Reference Range Interpretation Comments RDW (test code = RDW) 14.5 11.5-14.5 [facility] HospitalItlsorzGCPZYAIQNR7338-63-03 12:18:00 Test Item Value Reference Range Interpretation Comments Platelet (test code = Platelet) 133 133-450 [facility] HospitalFvutsweNCBZBMXRKR0577-10-81 12:18:00 Test Item Value Reference Range Interpretation Comments MPV (test code = MPV) 8.8 7.4-10.4 [facility] HospitalYetbshjAVVKSREUVM0503-03-64 12:18:00 Test Item Value Reference Range Interpretation Comments Segs (test code = Segs) 61.0 45.0-75.0 [place] 267911-11-17 12:18:00 Test Item Value Reference Range Interpretation Comments Lymphocytes (test code = Lymphocytes) 21.2 20.0-40.0 [place] 267911-11-17 12:18:00 Test Item Value Reference Range Interpretation Comments Monocytes (test code = Monocytes) 15.4 2.0-12.0 [place] 267911-11-17 12:18:00 Test Item Value Reference Range Interpretation Comments Eosinophils (test code = Eosinophils) 1.5 <=4.0 [place] 267911-11-17 12:18:00 Test Item Value Reference Range Interpretation Comments Basophils (test code = Basophils) 0.9 <=1.0 [place] 267911-11-17 12:18:00 Test Item Value Reference Range Interpretation Comments Neutrophils # (test code = Neutrophils 2.4 1.5-8.1 #) [facility] HospitalHysptpwULVGMOPSOC2394-42-02 12:18:00 Test Item Value Reference Range Interpretation Comments Lymphocytes # (test code = Lymphocytes 0.8 1.0-5.5 #) [facility] HospitalGluugitEJPWWQZXDE2642-70-88 12:18:00 Test Item Value Reference Range Interpretation Comments Monocytes # (test code = Monocytes #) 0.6 <=0.8 [facility] HospitalWmemwwmVZBOGDXKKN8020-57-11 12:18:00 Test Item Value Reference Range Interpretation Comments Eosinophils # (test code = Eosinophils 0.1 <=0.5 #) [facility]2021-11-16 19:44:00 Test Item Value Reference Range Interpretation Comments U Osmolality (test code = U Osmolality) 440 300-800 [facility]2021-11-16 19:44:00 Test Item Value Reference Range Interpretation Comments U Sodium (test code = U Sodium) no gt [facility]2021-11-16 19:44:00 Test Item Value Reference Range Interpretation Comments U Potassium (test code = U Potassium) 63.2 [facility]2021-11-16 19:44:00 Test Item Value Reference Range Interpretation Comments U Chloride (test code = U Chloride) 22 [facility]2021-11-16 11:36:00 Test Item Value Reference Range Interpretation Comments Osmolality (test code = Osmolality) 262 280-300 [facility] [id number] 03:33:00 Test Item Value Reference Range Interpretation Comments Culture: Urine (test code = No Growth Culture: Urine) [facility] [id number] 02:48:00 Test Item Value Reference Range Interpretation Comments UA Color (test code = Light Yellow UA Color) *NA*(07/14/21 8:48 PM) [facility] [id number] 02:48:00 Test Item Value Reference Range Interpretation Comments UA Turbidity (test code Slight *ABN*(07/14/21 = UA Turbidity) 8:48 PM) [facility] [id number] 02:48:00 Test Item Value Reference Range Interpretation Comments UA Spec Grav (test code = UA Spec 1.016 1 Grav) [facility] [id number] 02:48:00 Test Item Value Reference Range Interpretation Comments UA pH (test code = UA pH) 6.0 1 5.0-8.0 [facility] [id number] 02:48:00 Test Item Value Reference Range Interpretation Comments UA Protein (test code = UA Negative mg/dL Protein) [facility] [id number] 02:48:00 Test Item Value Reference Range Interpretation Comments UA Glucose (test code = UA Negative mg/dL Glucose) [facility] [id number] 02:48:00 Test Item Value Reference Range Interpretation Comments UA Ketones (test code = UA Negative mg/dL Ketones) [facility] [id number] 02:48:00 Test Item Value Reference Range Interpretation Comments UA Bili (test code = Negative *NA*(07/14/21 UA Bili) 8:48 PM) [facility] [id number] 02:48:00 Test Item Value Reference Range Interpretation Comments UA Blood (test code = Negative (07/14/21 8:48 UA Blood) PM) [facility] [id number] 02:48:00 Test Item Value Reference Range Interpretation Comments UA Urobilinogen (test code = UA no gt 0.1-1.0 Urobilinogen) [facility] [id number] 02:48:00 Test Item Value Reference Range Interpretation Comments UA Nitrite (test code Positive *ABN*(07/14/21 = UA Nitrite) 8:48 PM) [facility] AND [id number] 02:48:00 Test Item Value Reference Range Interpretation Comments UA Leuk Est (test Moderate *ABN*(07/14/21 code = UA Leuk Est) 8:48 PM) [facility] AND [id number] 02:48:00 Test Item Value Reference Range Interpretation Comments UA Sq Epi (test code = UA Sq Epi) Many /LPF [facility] AND [id number] 02:48:00 Test Item Value Reference Range Interpretation Comments UA WBC (test code = UA WBC) 18 <=5 [facility] AND [id number] 02:48:00 Test Item Value Reference Range Interpretation Comments UA RBC (test code = UA RBC) 1 <=2 [facility] AND [id number] 02:48:00 Test Item Value Reference Range Interpretation Comments UA Bacteria (test code = UA Moderate /HPF Bacteria) [facility] AND [id number] 02:48:00 Test Item Value Reference Range Interpretation Comments UA Mucus (test code = UA Mucus) Few /LPF [facility]2021-11-16 02:48:00 Test Item Value Reference Range Interpretation Comments U Sodium (test code = U Sodium) 51 [facility]2021-11-16 02:48:00 Test Item Value Reference Range Interpretation Comments U Creatinine (test code = U Creatinine) 77.00 [facility]2021-11-16 02:48:00 Test Item Value Reference Range Interpretation Comments U Urea (test code = U Urea) 364 [facility] HospitalFptwmgsRBATAYAVKC5598-31-55 11:58:00 Test Item Value Reference Range Interpretation Comments Segs (test code = Segs) 54.6 45.0-75.0 [facility] HospitalFjxnstuKJBPRPHJDE9081-01-04 11:58:00 Test Item Value Reference Range Interpretation Comments Lymphocytes (test code = Lymphocytes) 25.9 20.0-40.0 [facility] HospitalFjtmslgBVELRJIGXG7510-76-50 11:58:00 Test Item Value Reference Range Interpretation Comments Monocytes (test code = Monocytes) 12.3 2.0-12.0 [facility] HospitalTybdylmXJOBFPXIVN7631-67-33 11:58:00 Test Item Value Reference Range Interpretation Comments Eosinophils (test code = Eosinophils) 5.3 <=4.0 [place] 267911-11-15 11:58:00 Test Item Value Reference Range Interpretation Comments Basophils (test code = Basophils) 1.9 <=1.0 [place] 267911-11-15 11:58:00 Test Item Value Reference Range Interpretation Comments Neutrophils # (test code = Neutrophils 2.7 1.5-8.1 #) [place] 267911-11-15 11:58:00 Test Item Value Reference Range Interpretation Comments Lymphocytes # (test code = Lymphocytes 1.3 1.0-5.5 #) [place] 267911-11-15 11:58:00 Test Item Value Reference Range Interpretation Comments Monocytes # (test code = Monocytes #) 0.6 <=0.8 [place] 267911-11-15 11:58:00 Test Item Value Reference Range Interpretation Comments Eosinophils # (test code = Eosinophils 0.3 <=0.5 #) [place] 267911-11-15 11:58:00 Test Item Value Reference Range Interpretation Comments Basophils # (test code = Basophils #) 0.1 <=0.2 [place] 267911-11-15 11:58:00 Test Item Value Reference Range Interpretation Comments WBC (test code = WBC) 5.0 3.7-10.4 [place] [address]-11-15 11:58:00 Test Item Value Reference Range Interpretation Comments RBC (test code = RBC) 3.91 4.20-5.40 [place] [address]-11-15 11:58:00 Test Item Value Reference Range Interpretation Comments Hgb (test code = Hgb) 11.7 12.0-16.0 [place] [address]-11-15 11:58:00 Test Item Value Reference Range Interpretation Comments Hct (test code = Hct) 34.7 36.0-48.0 [place] 267911-11-15 11:58:00 Test Item Value Reference Range Interpretation Comments MCV (test code = MCV) 88.6 80.0-98.0 [place] 267911-11-15 11:58:00 Test Item Value Reference Range Interpretation Comments MCH (test code = MCH) 29.9 pg 27.0-31.0 [facility] HospitalWzteuxtZSOICKLNUW6498-03-67 11:58:00 Test Item Value Reference Range Interpretation Comments MCHC (test code = MCHC) 33.8 32.0-36.0 [facility] HospitalBiphmgvSKEGIGKOTS8168-51-17 11:58:00 Test Item Value Reference Range Interpretation Comments RDW (test code = RDW) 14.5 11.5-14.5 [facility] HospitalGwfircsCGEHEZUKXA0837-92-88 11:58:00 Test Item Value Reference Range Interpretation Comments Platelet (test code = Platelet) 223 133-450 [facility] HospitalOvdzbzcAZHGHLNZTU5869-00-41 11:58:00 Test Item Value Reference Range Interpretation Comments MPV (test code = MPV) 8.9 7.4-10.4 [facility] Auto Differential panel - [id number] 00:00:00 Test Item Value Reference Range Interpretation Comments Leukocytes [#/volume] in Blood 6.3 x10e3/uL 3.4-10.8 by Automated count (test code = 6690-2) Erythrocytes [#/volume] in 4.40 x10e6/uL 3.77-5.28 Blood by Automated count (test code = 789-8) Hemoglobin [Mass/volume] in 12.4 g/dL 11.1-15.9 Blood (test code = 718-7) Hematocrit [Volume Fraction] of 35.9 % 34.0-46.6 Blood by Automated count (test code = 4544-3) Erythrocyte mean corpuscular 82 fL 79-97 volume [Entitic volume] by Automated count (test code = 787-2) Erythrocyte mean corpuscular 28.2 pg 26.6-33.0 hemoglobin [Entitic mass] by Automated count (test code = 785-6) Erythrocyte mean corpuscular 34.5 g/dL 31.5-35.7 hemoglobin concentration [Mass/volume] by Automated count (test code = 786-4) Erythrocyte distribution width 14.7 % 11.7-15.4 [Ratio] by Automated count (test code = 788-0) Platelets [#/volume] in Blood 297 x10e3/uL 150-450 by Automated count (test code = 777-3) Neutrophils/100 leukocytes in 60 % not estab. Blood by Automated count (test code = 770-8) Lymphocytes/100 leukocytes in 23 % not estab. Blood by Automated count (test code = 736-9) Monocytes/100 leukocytes in 10 % not estab. Blood by Automated count (test code = 5905-5) Eosinophils/100 leukocytes in 4 % not estab. Blood by Automated count (test code = 713-8) Basophils/100 leukocytes in 2 % not estab. Blood by Automated count (test code = 706-2) immature cells (test code = net washer immature cells) Neutrophils [#/volume] in Blood 3.8 x10e3/uL 1.4-7.0 by Automated count (test code = 751-8) Lymphocytes [#/volume] in Blood 1.5 x10e3/uL 0.7-3.1 by Automated count (test code = 731-0) Monocytes [#/volume] in Blood 0.6 x10e3/uL 0.1-0.9 by Automated count (test code = 742-7) Eosinophils [#/volume] in Blood 0.3 x10e3/uL 0.0-0.4 by Automated count (test code = 711-2) Basophils [#/volume] in Blood 0.1 x10e3/uL 0.0-0.2 by Automated count (test code = 704-7) Immature granulocytes/100 1 % not estab. leukocytes in Blood by Automated count (test code = 47797-9) Immature granulocytes 0.1 x10e3/uL 0.0-0.1 [#/volume] in Blood by Automated count (test code = 07576-1) Nucleated erythrocytes/100 net washer leukocytes [Ratio] in Blood by Automated count (test code = 94157-3) Morphology [Interpretation] in net washer Blood Narrative (test code = 43131-5) [facility] - Serum or [id number] 00:00:00 Test Item Value Reference Range Interpretation Comments Glucose [Mass/volume] in Serum 95 mg/dL 65-99 or Plasma (test code = 2345-7) Urea nitrogen [Mass/volume] in 17 mg/dL 8-27 Serum or Plasma (test code = 3094-0) Creatinine [Mass/volume] in 1.08 mg/dL 0.57-1.00 H Serum or Plasma (test code = 2160-0) Glomerular filtration 54 mL/min/1.73 >59 L rate/1.73 sq M.predicted among non-blacks [Volume Rate/Area] in Serum, Plasma or Blood by Creatinine-based formula (CKD-EPI) (test code = 18094-2) Glomerular filtration 62 mL/min/1.73 >59 rate/1.73 sq M.predicted among blacks [Volume Rate/Area] in Serum, Plasma or Blood by Creatinine-based formula (CKD-EPI) (test code = 97383-2) Urea nitrogen/Creatinine [Mass 16 12-28 Ratio] in Serum or Plasma (test code = 3097-3) Sodium [Moles/volume] in Serum 134 mmol/L 134-144 or Plasma (test code = 2951-2) Potassium [Moles/volume] in 4.6 mmol/L 3.5-5.2 Serum or Plasma (test code = 2823-3) Chloride [Moles/volume] in 94 mmol/L 96-106 L Serum or Plasma (test code = 2075-0) Carbon dioxide, total 24 mmol/L 20-29 [Moles/volume] in Serum or Plasma (test code = 2027-9) Calcium [Mass/volume] in Serum 10.0 mg/dL 8.7-10.3 or Plasma (test code = 30301-2) Protein [Mass/volume] in Serum 7.5 g/dL 6.0-8.5 or Plasma (test code = 2885-2) Albumin [Mass/volume] in Serum 4.9 g/dL 3.8-4.8 H or Plasma (test code = 1751-7) Globulin [Mass/volume] in 2.6 g/dL 1.5-4.5 Serum by calculation (test code = 62560-3) Albumin/Globulin [Mass Ratio] 1.9 1.2-2.2 in Serum or Plasma (test code = 1759-0) Bilirubin.total [Mass/volume] 0.5 mg/dL 0.0-1.2 in Serum or Plasma (test code = 1975-2) Alkaline phosphatase 105 IU/L 48-121 [Enzymatic activity/volume] in Serum or Plasma (test code = 6768-6) Aspartate aminotransferase 24 IU/L 0-40 [Enzymatic activity/volume] in Serum or Plasma (test code = 1920-8) Alanine aminotransferase 13 IU/L 0-32 [Enzymatic activity/volume] in Serum or Plasma (test code = 1742-6) [facility]Units/volume] in Serum or Plasma by Detection limit <= 0.005 mIU/[id number] 00:00:00 Test Item Value Reference Range Interpretation Comments Thyrotropin [Units/volume] in 4.390 uIU/mL 0.450-4.500 Serum or Plasma by Detection limit <= 0.005 mIU/L (test code = 77361-8) [facility]T4[facility] free [Mass/volume] in Serum or [id number] 00:00:00 Test Item Value Reference Range Interpretation Comments Thyroxine (T4) free [Mass/volume] 1.52 NG/dL 0.82-1.77 in Serum or Plasma (test code = 3024-7) [facility] Auto Differential panel - [id number] 00:00:00 Test Item Value Reference Range Interpretation Comments Leukocytes [#/volume] in Blood 4.7 x10e3/uL 3.4-10.8 by Automated count (test code = 6690-2) Erythrocytes [#/volume] in 3.67 x10e6/uL 3.77-5.28 L Blood by Automated count (test code = 789-8) Hemoglobin [Mass/volume] in 10.2 g/dL 11.1-15.9 L Blood (test code = 718-7) Hematocrit [Volume Fraction] of 30.5 % 34.0-46.6 L Blood by Automated count (test code = 4544-3) Erythrocyte mean corpuscular 83 fL 79-97 volume [Entitic volume] by Automated count (test code = 787-2) Erythrocyte mean corpuscular 27.8 pg 26.6-33.0 hemoglobin [Entitic mass] by Automated count (test code = 785-6) Erythrocyte mean corpuscular 33.4 g/dL 31.5-35.7 hemoglobin concentration [Mass/volume] by Automated count (test code = 786-4) Erythrocyte distribution width 14.0 % 11.7-15.4 [Ratio] by Automated count (test code = 788-0) Platelets [#/volume] in Blood 338 x10e3/uL 150-450 by Automated count (test code = 777-3) Neutrophils/100 leukocytes in 48 % not estab. Blood by Automated count (test code = 770-8) Lymphocytes/100 leukocytes in 29 % not estab. Blood by Automated count (test code = 736-9) Monocytes/100 leukocytes in 13 % not estab. Blood by Automated count (test code = 5905-5) Eosinophils/100 leukocytes in 6 % not estab. Blood by Automated count (test code = 713-8) Basophils/100 leukocytes in 3 % not estab. Blood by Automated count (test code = 706-2) immature cells (test code = net washer immature cells) Neutrophils [#/volume] in Blood 2.3 x10e3/uL 1.4-7.0 by Automated count (test code = 751-8) Lymphocytes [#/volume] in Blood 1.4 x10e3/uL 0.7-3.1 by Automated count (test code = 731-0) Monocytes [#/volume] in Blood 0.6 x10e3/uL 0.1-0.9 by Automated count (test code = 742-7) Eosinophils [#/volume] in Blood 0.3 x10e3/uL 0.0-0.4 by Automated count (test code = 711-2) Basophils [#/volume] in Blood 0.1 x10e3/uL 0.0-0.2 by Automated count (test code = 704-7) Immature granulocytes/100 1 % not estab. leukocytes in Blood by Automated count (test code = 39512-5) Immature granulocytes 0.0 x10e3/uL 0.0-0.1 [#/volume] in Blood by Automated count (test code = 54541-0) Nucleated erythrocytes/100 net washer leukocytes [Ratio] in Blood by Automated count (test code = 72657-2) Morphology [Interpretation] in net washer Blood Narrative (test code = 19530-7) [facility] - Serum or [id number] 00:00:00 Test Item Value Reference Range Interpretation Comments Glucose [Mass/volume] in Serum 85 mg/dL 65-99 or Plasma (test code = 2345-7) Urea nitrogen [Mass/volume] in 16 mg/dL 8-27 Serum or Plasma (test code = 3094-0) Creatinine [Mass/volume] in 0.76 mg/dL 0.57-1.00 Serum or Plasma (test code = 2160-0) Glomerular filtration 83 mL/min/1.73 >59 rate/1.73 sq M.predicted among non-blacks [Volume Rate/Area] in Serum, Plasma or Blood by Creatinine-based formula (CKD-EPI) (test code = 61835-1) Glomerular filtration 95 mL/min/1.73 >59 rate/1.73 sq M.predicted among blacks [Volume Rate/Area] in Serum, Plasma or Blood by Creatinine-based formula (CKD-EPI) (test code = 27935-8) Urea nitrogen/Creatinine [Mass 21 12-28 Ratio] in Serum or Plasma (test code = 3097-3) Sodium [Moles/volume] in Serum 130 mmol/L 134-144 L or Plasma (test code = 2951-2) Potassium [Moles/volume] in 4.7 mmol/L 3.5-5.2 Serum or Plasma (test code = 2823-3) Chloride [Moles/volume] in 93 mmol/L 96-106 L Serum or Plasma (test code = 5-0) Carbon dioxide, total 21 mmol/L 20-29 [Moles/volume] in Serum or Plasma (test code = 2027-9) Calcium [Mass/volume] in Serum 10.0 mg/dL 8.7-10.3 or Plasma (test code = 88565-6) Protein [Mass/volume] in Serum 7.1 g/dL 6.0-8.5 or Plasma (test code = 2885-2) Albumin [Mass/volume] in Serum 4.5 g/dL 3.8-4.8 or Plasma (test code = 1751-7) Globulin [Mass/volume] in 2.6 g/dL 1.5-4.5 Serum by calculation (test code = 33649-9) Albumin/Globulin [Mass Ratio] 1.7 1.2-2.2 in Serum or Plasma (test code = 1759-0) Bilirubin.total [Mass/volume] 0.7 mg/dL 0.0-1.2 in Serum or Plasma (test code = 1975-2) Alkaline phosphatase 168 IU/L 39-117 H [Enzymatic activity/volume] in Serum or Plasma (test code = 6768-6) Aspartate aminotransferase 18 IU/L 0-40 [Enzymatic activity/volume] in Serum or Plasma (test code = 1920-8) Alanine aminotransferase 9 IU/L 0-32 [Enzymatic activity/volume] in Serum or Plasma (test code = 1742-6) [facility] - Serum or [id number] 00:00:00 Test Item Value Reference Range Interpretation Comments Cholesterol [Mass/volume] in Serum 220 mg/dL 100-199 H or Plasma (test code = 2093-3) Triglyceride [Mass/volume] in Serum 75 mg/dL 0-149 or Plasma (test code = 2571-8) Cholesterol in HDL [Mass/volume] in 102 mg/dL >39 Serum or Plasma (test code = 2085-9) Cholesterol in VLDL [Mass/volume] 13 mg/dL 5-40 in Serum or Plasma by calculation (test code = 19701-0) Cholesterol in LDL [Mass/volume] in 105 mg/dL 0-99 H Serum or Plasma by calculation (test code = 86799-4) Laboratory comment [Text] in Report net washer Narrative (test code = 41132-9) [facility] [Units/volume] in Serum or Plasma by Detection limit <= 0.005 mIU/[id number] 00:00:00 Test Item Value Reference Range Interpretation Comments Thyrotropin [Units/volume] in 3.850 uIU/mL 0.450-4.500 Serum or Plasma by Detection limit <= 0.005 mIU/L (test code = 56853-2) [facility]T4[facility] free [Mass/volume] in Serum or [id number] 00:00:00 Test Item Value Reference Range Interpretation Comments Thyroxine (T4) free [Mass/volume] 1.25 NG/dL 0.82-1.77 in Serum or Plasma (test code = 3024-7) [facility] 1999 panel - Serum or [id number] 00:00:00 Test Item Value Reference Range Interpretation Comments ambig abbrev CMP14 default (test code comment = ambig abbrev CMP14 default) [facility] - Serum or [id number] 00:00:00 Test Item Value Reference Range Interpretation Comments ambig abbrev LP default (test code = comment ambig abbrev LP default) [facility]enCHE[facility] [id number] 11:18:00 Test Item Value Reference Range Interpretation Comments Glucose Lvl (test code = Glucose Lvl) 81 70-99 [facility]2020-12-30 11:18:00 Test Item Value Reference Range Interpretation Comments BUN (test code = BUN) 12 7-22 [facility]2020-12-30 11:18:00 Test Item Value Reference Range Interpretation Comments Creatinine Lvl (test code = Creatinine 0.70 0.50-1.40 Lvl) [facility]2020-12-30 11:18:00 Test Item Value Reference Range Interpretation Comments Sodium Lvl (test code = Sodium Lvl) 134 135-145 [facility]2020-12-30 11:18:00 Test Item Value Reference Range Interpretation Comments Potassium Lvl (test code = Potassium 3.9 3.5-5.1 Lvl) [facility]2020-12-30 11:18:00 Test Item Value Reference Range Interpretation Comments Chloride Lvl (test code = Chloride Lvl) 100 95-109 [facility]2020-12-30 11:18:00 Test Item Value Reference Range Interpretation Comments CO2 (test code = CO2) 28 24-32 [facility]2020-12-30 11:18:00 Test Item Value Reference Range Interpretation Comments Calcium Lvl (test code = Calcium Lvl) 9.1 8.5-10.5 [facility]2020-12-30 11:18:00 Test Item Value Reference Range Interpretation Comments AGAP (test code = AGAP) 9.9 10.0-20.0 [facility]2020-12-30 11:18:00 Test Item Value Reference Range Interpretation Comments eGFR (test code = eGFR) 91 [facility]XaupcflMALJUJQCNW3794-41-29 11:18:00 Test Item Value Reference Range Interpretation Comments WBC (test code = WBC) 5.4 3.7-10.4 [place] [address]-12-30 11:18:00 Test Item Value Reference Range Interpretation Comments RBC (test code = RBC) 2.80 4.20-5.40 [place] 267910-12-30 11:18:00 Test Item Value Reference Range Interpretation Comments Hgb (test code = Hgb) 8.0 12.0-16.0 [place] [address]-12-30 11:18:00 Test Item Value Reference Range Interpretation Comments Hct (test code = Hct) 23.7 36.0-48.0 [place] 267910-12-30 11:18:00 Test Item Value Reference Range Interpretation Comments MCV (test code = MCV) 84.8 80.0-98.0 [place] [address]-12-30 11:18:00 Test Item Value Reference Range Interpretation Comments MCH (test code = MCH) 28.7 pg 27.0-31.0 [place] 267910-12-30 11:18:00 Test Item Value Reference Range Interpretation Comments MCHC (test code = MCHC) 33.8 32.0-36.0 [place] [address]-12-30 11:18:00 Test Item Value Reference Range Interpretation Comments RDW (test code = RDW) 13.8 11.5-14.5 [place] [address]-12-30 11:18:00 Test Item Value Reference Range Interpretation Comments Platelet (test code = Platelet) 246 133-450 [facility] HospitalBtggbkeSWOXFKTECX3412-69-60 11:18:00 Test Item Value Reference Range Interpretation Comments MPV (test code = MPV) 7.9 7.4-10.4 [place] [address]-12-30 11:18:00 Test Item Value Reference Range Interpretation Comments Segs (test code = Segs) 57.3 45.0-75.0 [place] [address]-12-30 11:18:00 Test Item Value Reference Range Interpretation Comments Lymphocytes (test code = Lymphocytes) 22.4 20.0-40.0 [place] [address]-12-30 11:18:00 Test Item Value Reference Range Interpretation Comments Monocytes (test code = Monocytes) 14.9 2.0-12.0 [place] [address]-12-30 11:18:00 Test Item Value Reference Range Interpretation Comments Eosinophils (test code = Eosinophils) 4.0 <=4.0 [place] [address]-12-30 11:18:00 Test Item Value Reference Range Interpretation Comments Basophils (test code = Basophils) 1.4 <=1.0 [place] [address]-12-30 11:18:00 Test Item Value Reference Range Interpretation Comments Neutrophils # (test code = Neutrophils 3.1 1.5-8.1 #) [place] [address]-12-30 11:18:00 Test Item Value Reference Range Interpretation Comments Lymphocytes # (test code = Lymphocytes 1.2 1.0-5.5 #) [place] 267910-12-30 11:18:00 Test Item Value Reference Range Interpretation Comments Monocytes # (test code = Monocytes #) 0.8 <=0.8 [place] [address]-12-30 11:18:00 Test Item Value Reference Range Interpretation Comments Eosinophils # (test code = Eosinophils 0.2 <=0.5 #) [place] [address]-12-30 11:18:00 Test Item Value Reference Range Interpretation Comments Basophils # (test code = Basophils #) 0.1 <=0.2 [place] 325060-12-29 10:11:00 Test Item Value Reference Range Interpretation Comments Glucose Lvl (test code = Glucose Lvl) 91 70-99 [place] 325060-12-29 10:11:00 Test Item Value Reference Range Interpretation Comments BUN (test code = BUN) 11 7-22 [place] 325060-12-29 10:11:00 Test Item Value Reference Range Interpretation Comments Creatinine Lvl (test code = Creatinine 0.66 0.50-1.40 Lvl) [place] 325060-12-29 10:11:00 Test Item Value Reference Range Interpretation Comments Sodium Lvl (test code = Sodium Lvl) 131 135-145 [place] 325060-12-29 10:11:00 Test Item Value Reference Range Interpretation Comments Potassium Lvl (test code = Potassium 4.0 3.5-5.1 Lvl) [place] 325060-12-29 10:11:00 Test Item Value Reference Range Interpretation Comments Chloride Lvl (test code = Chloride Lvl) 100 95-109 [place] 325060-12-29 10:11:00 Test Item Value Reference Range Interpretation Comments CO2 (test code = CO2) 26 24-32 [place] 325060-12-29 10:11:00 Test Item Value Reference Range Interpretation Comments Calcium Lvl (test code = Calcium Lvl) 8.6 8.5-10.5 [place] 325060-12-29 10:11:00 Test Item Value Reference Range Interpretation Comments AGAP (test code = AGAP) 9.0 10.0-20.0 [place] 325060-12-29 10:11:00 Test Item Value Reference Range Interpretation Comments eGFR (test code = eGFR) 93 [facility]QcbpoinSYZOVPKFYJ0096-64-78 10:11:00 Test Item Value Reference Range Interpretation Comments Segs (test code = Segs) 60.0 45.0-75.0 [facility] HospitalSajizxuGXUGRQWIWC1379-93-58 10:11:00 Test Item Value Reference Range Interpretation Comments Lymphocytes (test code = Lymphocytes) 22.2 20.0-40.0 [place] 267910-12-29 10:11:00 Test Item Value Reference Range Interpretation Comments Monocytes (test code = Monocytes) 13.2 2.0-12.0 [place] 267910-12-29 10:11:00 Test Item Value Reference Range Interpretation Comments Eosinophils (test code = Eosinophils) 3.4 <=4.0 [place] 267910-12-29 10:11:00 Test Item Value Reference Range Interpretation Comments Basophils (test code = Basophils) 1.2 <=1.0 [place] 267910-12-29 10:11:00 Test Item Value Reference Range Interpretation Comments Neutrophils # (test code = Neutrophils 3.3 1.5-8.1 #) [place] 267910-12-29 10:11:00 Test Item Value Reference Range Interpretation Comments Lymphocytes # (test code = Lymphocytes 1.2 1.0-5.5 #) [place] 267910-12-29 10:11:00 Test Item Value Reference Range Interpretation Comments Monocytes # (test code = Monocytes #) 0.7 <=0.8 [place] 267910-12-29 10:11:00 Test Item Value Reference Range Interpretation Comments Eosinophils # (test code = Eosinophils 0.2 <=0.5 #) [facility] HospitalSyludazBCVUGIQNFZ5923-27-05 10:11:00 Test Item Value Reference Range Interpretation Comments Basophils # (test code = Basophils #) 0.1 <=0.2 [facility] HospitalDvtgcvfOVEULVADKJ3994-43-24 10:11:00 Test Item Value Reference Range Interpretation Comments WBC (test code = WBC) 5.4 3.7-10.4 [facility] HospitalWmzmzweMFMTVQIMJI1243-79-16 10:11:00 Test Item Value Reference Range Interpretation Comments RBC (test code = RBC) 2.83 4.20-5.40 [facility] HospitalDuafdjbSJOLBWWVHH1637-55-66 10:11:00 Test Item Value Reference Range Interpretation Comments Hgb (test code = Hgb) 8.0 12.0-16.0 [facility] HospitalBmnyzvmBRYGBEITJR2660-31-97 10:11:00 Test Item Value Reference Range Interpretation Comments Hct (test code = Hct) 24.1 36.0-48.0 [facility] HospitalDwdscgwXRQVWQQFPV8708-09-22 10:11:00 Test Item Value Reference Range Interpretation Comments MCV (test code = MCV) 85.2 80.0-98.0 [facility] HospitalUmyhejkDJCIMDJLLY4805-96-20 10:11:00 Test Item Value Reference Range Interpretation Comments MCH (test code = MCH) 28.2 pg 27.0-31.0 [facility] HospitalEohgrahFFKNHIPKWE7435-75-30 10:11:00 Test Item Value Reference Range Interpretation Comments MCHC (test code = MCHC) 33.1 32.0-36.0 [facility] HospitalPzrgnkuWGOLMGSFFI9902-75-34 10:11:00 Test Item Value Reference Range Interpretation Comments RDW (test code = RDW) 14.1 11.5-14.5 [facility] HospitalDmxksagCQSWDPNDSQ2549-82-49 10:11:00 Test Item Value Reference Range Interpretation Comments Platelet (test code = Platelet) 230 133-450 [facility] HospitalOglvlsyLXZRTYYEYL8269-70-66 10:11:00 Test Item Value Reference Range Interpretation Comments MPV (test code = MPV) 8.2 7.4-10.4 [facility] [employer] KLWZPMY7198-01-22 08:58:00 Test Item Value Reference Range Interpretation Comments ABO/Rh (test code = ABO/Rh) O POS [facility] PZRCCNS1762-92-89 08:58:00 Test Item Value Reference Range Interpretation Comments Antibody Scrn (test Negative (08/26/20 code = Antibody Scrn) 2:58 AM) [facility]2020-12-28 08:58:00 Test Item Value Reference Range Interpretation Comments Glucose Lvl (test code = Glucose Lvl) 87 70-99 [facility]2020-12-28 08:58:00 Test Item Value Reference Range Interpretation Comments BUN (test code = BUN) 7 7-22 [facility]2020-12-28 08:58:00 Test Item Value Reference Range Interpretation Comments Creatinine Lvl (test code = Creatinine 0.64 0.50-1.40 Lvl) [facility]2020-12-28 08:58:00 Test Item Value Reference Range Interpretation Comments Sodium Lvl (test code = Sodium Lvl) 134 135-145 [facility]2020-12-28 08:58:00 Test Item Value Reference Range Interpretation Comments Potassium Lvl (test code = Potassium 4.0 3.5-5.1 Lvl) [facility]2020-12-28 08:58:00 Test Item Value Reference Range Interpretation Comments Chloride Lvl (test code = Chloride Lvl) 102 95-109 [facility]2020-12-28 08:58:00 Test Item Value Reference Range Interpretation Comments CO2 (test code = CO2) 27 24-32 [facility]2020-12-28 08:58:00 Test Item Value Reference Range Interpretation Comments Calcium Lvl (test code = Calcium Lvl) 8.9 8.5-10.5 [facility]2020-12-28 08:58:00 Test Item Value Reference Range Interpretation Comments AGAP (test code = AGAP) 9.0 10.0-20.0 [facility]2020-12-28 08:58:00 Test Item Value Reference Range Interpretation Comments eGFR (test code = eGFR) 94 [facility] HospitalRsdgrylSAIMCHSCJU1510-11-33 08:58:00 Test Item Value Reference Range Interpretation Comments WBC (test code = WBC) 5.4 3.7-10.4 [facility] HospitalQxcdupwAWGUUAKRHG7227-70-79 08:58:00 Test Item Value Reference Range Interpretation Comments RBC (test code = RBC) 2.75 4.20-5.40 [facility] HospitalWcyjvqjSPCHVHTCRE1907-26-02 08:58:00 Test Item Value Reference Range Interpretation Comments Hgb (test code = Hgb) 7.9 12.0-16.0 [facility] HospitalNjypwhbEWJEOBDWBX5971-03-50 08:58:00 Test Item Value Reference Range Interpretation Comments Hct (test code = Hct) 23.5 36.0-48.0 [facility] HospitalNiaqswaLQIEOKKVRB0944-39-34 08:58:00 Test Item Value Reference Range Interpretation Comments MCV (test code = MCV) 85.4 80.0-98.0 [facility] HospitalEmjmagmTYTVLGQLDA2436-92-32 08:58:00 Test Item Value Reference Range Interpretation Comments MCH (test code = MCH) 28.7 pg 27.0-31.0 [facility] HospitalSqcitmkCXDWFKBMSJ5286-42-08 08:58:00 Test Item Value Reference Range Interpretation Comments MCHC (test code = MCHC) 33.6 32.0-36.0 [facility] HospitalXlsqsjtTYMNVSPHKD4665-15-34 08:58:00 Test Item Value Reference Range Interpretation Comments RDW (test code = RDW) 14.0 11.5-14.5 [facility] HospitalTtrimhmPQTKLRJZAQ6997-25-62 08:58:00 Test Item Value Reference Range Interpretation Comments Platelet (test code = Platelet) 178 133-450 [facility] HospitalGkaxvrvBXGHUPYGMF8125-32-96 08:58:00 Test Item Value Reference Range Interpretation Comments MPV (test code = MPV) 9.1 7.4-10.4 [facility] HospitalUzwotuiZAUWKZSZTA3944-87-37 08:58:00 Test Item Value Reference Range Interpretation Comments Segs (test code = Segs) 57.4 45.0-75.0 [facility] HospitalRpbwatgUMTYYIUIMG8827-23-66 08:58:00 Test Item Value Reference Range Interpretation Comments Lymphocytes (test code = Lymphocytes) 23.9 20.0-40.0 [facility] HospitalUmecdyoQZFUNGTGQJ2634-78-01 08:58:00 Test Item Value Reference Range Interpretation Comments Monocytes (test code = Monocytes) 12.8 2.0-12.0 [facility] HospitalHbpowsfJJUHVDPQKF2047-03-10 08:58:00 Test Item Value Reference Range Interpretation Comments Eosinophils (test code = Eosinophils) 4.5 <=4.0 [place] 267910-12-28 08:58:00 Test Item Value Reference Range Interpretation Comments Basophils (test code = Basophils) 1.4 <=1.0 [place] 267910-12-28 08:58:00 Test Item Value Reference Range Interpretation Comments Neutrophils # (test code = Neutrophils 3.1 1.5-8.1 #) [facility] HospitalEethgwoYFBKMGLSDL3367-97-41 08:58:00 Test Item Value Reference Range Interpretation Comments Lymphocytes # (test code = Lymphocytes 1.3 1.0-5.5 #) [facility] HospitalWwvexnyNDFDXMJMOC2822-98-92 08:58:00 Test Item Value Reference Range Interpretation Comments Monocytes # (test code = Monocytes #) 0.7 <=0.8 [place] 267910-12-28 08:58:00 Test Item Value Reference Range Interpretation Comments Eosinophils # (test code = Eosinophils 0.2 <=0.5 #) [facility] HospitalLacfhhnTAIDOXVQWX5190-08-89 08:58:00 Test Item Value Reference Range Interpretation Comments Basophils # (test code = Basophils #) 0.1 <=0.2 [facility] HospitalMskuujyRWVCAYZNAH6278-39-21 17:47:00 Test Item Value Reference Range Interpretation Comments Hgb (test code = Hgb) 7.4 12.0-16.0 [facility] HospitalBbdzfobYSLDXEBCRE3456-98-21 17:47:00 Test Item Value Reference Range Interpretation Comments Hct (test code = Hct) 22.1 36.0-48.[address] [facility] ACTOXCF3544-02-11 10:16:00 Test Item Value Reference Range Interpretation Comments RBC product (test code Product available = RBC product) (08/25/20 4:16 AM) [facility]2020-12-27 08:19:00 Test Item Value Reference Range Interpretation Comments Calcium Lvl (test code = Calcium Lvl) 8.6 8.5-10.5 [facility]2020-12-27 08:19:00 Test Item Value Reference Range Interpretation Comments AGAP (test code = AGAP) 10.1 10.0-20.0 [facility]2020-12-27 08:19:00 Test Item Value Reference Range Interpretation Comments eGFR (test code = eGFR) 94 [facility] HospitalKnpwxmlQZALEAYYQK4163-79-59 08:19:00 Test Item Value Reference Range Interpretation Comments WBC (test code = WBC) 4.8 3.7-10.4 [place] 267910-12-27 08:19:00 Test Item Value Reference Range Interpretation Comments RBC (test code = RBC) 2.21 4.20-5.40 [place] [address]-12-27 08:19:00 Test Item Value Reference Range Interpretation Comments Hgb (test code = Hgb) 6.4 12.0-16.0 [place] [address]-12-27 08:19:00 Test Item Value Reference Range Interpretation Comments Hct (test code = Hct) 18.9 36.0-48.0 [place] [address]-12-27 08:19:00 Test Item Value Reference Range Interpretation Comments MCV (test code = MCV) 85.5 80.0-98.0 [place] [address]-12-27 08:19:00 Test Item Value Reference Range Interpretation Comments MCH (test code = MCH) 29.1 pg 27.0-31.0 [place] [address]-12-27 08:19:00 Test Item Value Reference Range Interpretation Comments MCHC (test code = MCHC) 34.0 32.0-36.0 [place] 267910-12-27 08:19:00 Test Item Value Reference Range Interpretation Comments RDW (test code = RDW) 13.7 11.5-14.5 [place] [address]-12-27 08:19:00 Test Item Value Reference Range Interpretation Comments Platelet (test code = Platelet) 145 133-450 [place] 267910-12-27 08:19:00 Test Item Value Reference Range Interpretation Comments MPV (test code = MPV) 8.8 7.4-10.4 [place] [address]-12-27 08:19:00 Test Item Value Reference Range Interpretation Comments Segs (test code = Segs) 54.5 45.0-75.0 [place] [address]-12-27 08:19:00 Test Item Value Reference Range Interpretation Comments Lymphocytes (test code = Lymphocytes) 27.2 20.0-40.0 [place] 267910-12-27 08:19:00 Test Item Value Reference Range Interpretation Comments Monocytes (test code = Monocytes) 13.3 2.0-12.[address]12-27 08:19:00 Test Item Value Reference Range Interpretation Comments Eosinophils (test code = Eosinophils) 3.7 <=4.0 [address]12-27 08:19:00 Test Item Value Reference Range Interpretation Comments Basophils (test code = Basophils) 1.3 <=1.0 [address]12-27 08:19:00 Test Item Value Reference Range Interpretation Comments Neutrophils # (test code = Neutrophils 2.6 1.5-8.1 #) [address]12-27 08:19:00 Test Item Value Reference Range Interpretation Comments Lymphocytes # (test code = Lymphocytes 1.3 1.0-5.5 #) [address]12-27 08:19:00 Test Item Value Reference Range Interpretation Comments Monocytes # (test code = Monocytes #) 0.6 <=0.8 [address]12-27 08:19:00 Test Item Value Reference Range Interpretation Comments Eosinophils # (test code = Eosinophils 0.2 <=0.5 #) [address]12-27 08:19:00 Test Item Value Reference Range Interpretation Comments Basophils # (test code = Basophils #) 0.1 <=0.2 [address]12-27 08:19:00 Test Item Value Reference Range Interpretation Comments Glucose Lvl (test code = Glucose Lvl) 90 70-99 [place] [address]-12-27 08:19:00 Test Item Value Reference Range Interpretation Comments BUN (test code = BUN) 10 7-22 [place] [address]-12-27 08:19:00 Test Item Value Reference Range Interpretation Comments Creatinine Lvl (test code = Creatinine 0.63 0.50-1.40 Lvl) [place] 325060-12-27 08:19:00 Test Item Value Reference Range Interpretation Comments Sodium Lvl (test code = Sodium Lvl) 135 135-145 [place] [address]-12-27 08:19:00 Test Item Value Reference Range Interpretation Comments Potassium Lvl (test code = Potassium 4.1 3.5-5.1 Lvl) [place] 325060-12-27 08:19:00 Test Item Value Reference Range Interpretation Comments Chloride Lvl (test code = Chloride Lvl) 103 95-109 [facility]2020-12-27 08:19:00 Test Item Value Reference Range Interpretation Comments CO2 (test code = CO2) [place] 325060-12-26 15:15:00 Test Item Value Reference Range Interpretation Comments Glucose Lvl (test code = Glucose Lvl) 106 70-99 [facility]2020-12-26 15:15:00 Test Item Value Reference Range Interpretation Comments BUN (test code = BUN) 9 - [place] 325060-12-26 15:15:00 Test Item Value Reference Range Interpretation Comments Creatinine Lvl (test code = Creatinine 0.73 0.50-1.40 Lvl) [facility]2020-12-26 15:15:00 Test Item Value Reference Range Interpretation Comments Sodium Lvl (test code = Sodium Lvl) 134 135-145 [facility]2020-12-26 15:15:00 Test Item Value Reference Range Interpretation Comments Potassium Lvl (test code = Potassium 3.8 3.5-5.1 Lvl) [facility]2020-12-26 15:15:00 Test Item Value Reference Range Interpretation Comments Chloride Lvl (test code = Chloride Lvl) 103 95-109 [facility]2020-12-26 15:15:00 Test Item Value Reference Range Interpretation Comments CO2 (test code = CO2) - [facility]2020-12-26 15:15:00 Test Item Value Reference Range Interpretation Comments Calcium Lvl (test code = Calcium Lvl) 8.5 8.5-10.5 [place] 325060-12-26 15:15:00 Test Item Value Reference Range Interpretation Comments AGAP (test code = AGAP) 11.8 10.0-20.0 [place] 325060-12-26 15:15:00 Test Item Value Reference Range Interpretation Comments eGFR (test code = eGFR) 87 [place] 267910-12-26 15:15:00 Test Item Value Reference Range Interpretation Comments WBC (test code = WBC) 5.7 3.7-10.4 [place] 267910-12-26 15:15:00 Test Item Value Reference Range Interpretation Comments RBC (test code = RBC) 2.46 4.20-5.40 [facility] HospitalWpyusgxTJXVVNKKVG4044-43-57 15:15:00 Test Item Value Reference Range Interpretation Comments Hgb (test code = Hgb) 7.1 12.0-16.0 [place] [address]-12-26 15:15:00 Test Item Value Reference Range Interpretation Comments Hct (test code = Hct) 20.9 36.0-48.0 [place] 267910-12-26 15:15:00 Test Item Value Reference Range Interpretation Comments MCV (test code = MCV) 85.1 80.0-98.0 [place] [address]-12-26 15:15:00 Test Item Value Reference Range Interpretation Comments MCH (test code = MCH) 28.7 pg 27.0-31.0 [place] [address]-12-26 15:15:00 Test Item Value Reference Range Interpretation Comments MCHC (test code = MCHC) 33.7 32.0-36.0 [place] [address]-12-26 15:15:00 Test Item Value Reference Range Interpretation Comments RDW (test code = RDW) 13.9 11.5-14.5 [place] 267910-12-26 15:15:00 Test Item Value Reference Range Interpretation Comments Platelet (test code = Platelet) 159 133-450 [place] 267910-12-26 15:15:00 Test Item Value Reference Range Interpretation Comments MPV (test code = MPV) 9.1 7.4-10.4 [place] 267910-12-26 15:15:00 Test Item Value Reference Range Interpretation Comments Segs (test code = Segs) 60.6 45.0-75.0 [place] [address]-12-26 15:15:00 Test Item Value Reference Range Interpretation Comments Lymphocytes (test code = Lymphocytes) 22.0 20.0-40.0 [place] [address]-12-26 15:15:00 Test Item Value Reference Range Interpretation Comments Monocytes (test code = Monocytes) 13.4 2.0-12.0 [place] [address]-12-26 15:15:00 Test Item Value Reference Range Interpretation Comments Eosinophils (test code = Eosinophils) 2.5 <=4.0 [place] [address]-12-26 15:15:00 Test Item Value Reference Range Interpretation Comments Basophils (test code = Basophils) 1.5 <=1.0 [place] [address]-12-26 15:15:00 Test Item Value Reference Range Interpretation Comments Neutrophils # (test code = Neutrophils 3.5 1.5-8.1 #) [address]12-26 15:15:00 Test Item Value Reference Range Interpretation Comments Lymphocytes # (test code = Lymphocytes 1.3 1.0-5.5 #) [address]12-26 15:15:00 Test Item Value Reference Range Interpretation Comments Monocytes # (test code = Monocytes #) 0.8 <=0.8 [address]12-26 15:15:00 Test Item Value Reference Range Interpretation Comments Eosinophils # (test code = Eosinophils 0.1 <=0.5 #) [address]12-26 15:15:00 Test Item Value Reference Range Interpretation Comments Basophils # (test code = Basophils #) 0.1 <=0.2 [place] 325060-12-25 09:02:00 Test Item Value Reference Range Interpretation Comments Glucose Lvl (test code = Glucose Lvl) 106 70-99 [place] 325060-12-25 09:02:00 Test Item Value Reference Range Interpretation Comments BUN (test code = BUN) 11 7-22 [place] [address]-12-25 09:02:00 Test Item Value Reference Range Interpretation Comments Creatinine Lvl (test code = Creatinine 0.82 0.50-1.40 Lvl) [place] 325060-12-25 09:02:00 Test Item Value Reference Range Interpretation Comments Sodium Lvl (test code = Sodium Lvl) 132 135-145 [place] 325060-12-25 09:02:00 Test Item Value Reference Range Interpretation Comments Potassium Lvl (test code = Potassium 3.8 3.5-5.1 Lvl) [place] 325060-12-25 09:02:00 Test Item Value Reference Range Interpretation Comments Chloride Lvl (test code = Chloride Lvl) 99 95-109 [place] 325060-12-25 09:02:00 Test Item Value Reference Range Interpretation Comments CO2 (test code = CO2) 24 24-32 [place] 325060-12-25 09:02:00 Test Item Value Reference Range Interpretation Comments Calcium Lvl (test code = Calcium Lvl) 8.4 8.5-10.5 [place] 325060-12-25 09:02:00 Test Item Value Reference Range Interpretation Comments AGAP (test code = AGAP) 12.8 10.0-20.0 [place] 325060-12-25 09:02:00 Test Item Value Reference Range Interpretation Comments eGFR (test code = eGFR) 76 [facility] HospitalFjgnqqoJDCUKVCQGR6795-29-75 09:02:00 Test Item Value Reference Range Interpretation Comments Segs (test code = Segs) 73.7 45.0-75.0 [place] 267910-12-25 09:02:00 Test Item Value Reference Range Interpretation Comments Lymphocytes (test code = Lymphocytes) 15.5 20.0-40.0 [place] 267910-12-25 09:02:00 Test Item Value Reference Range Interpretation Comments Monocytes (test code = Monocytes) 9.8 2.0-12.0 [place] 267910-12-25 09:02:00 Test Item Value Reference Range Interpretation Comments Eosinophils (test code = Eosinophils) 0.4 <=4.0 [place] [address]-12-25 09:02:00 Test Item Value Reference Range Interpretation Comments Basophils (test code = Basophils) 0.6 <=1.0 [place] 267910-12-25 09:02:00 Test Item Value Reference Range Interpretation Comments Neutrophils # (test code = Neutrophils 4.3 1.5-8.1 #) [place] 267910-12-25 09:02:00 Test Item Value Reference Range Interpretation Comments Lymphocytes # (test code = Lymphocytes 0.9 1.0-5.5 #) [place] 267910-12-25 09:02:00 Test Item Value Reference Range Interpretation Comments Monocytes # (test code = Monocytes #) 0.6 <=0.8 [place] [address]-12-25 09:02:00 Test Item Value Reference Range Interpretation Comments WBC (test code = WBC) 5.9 3.7-10.4 [facility] HospitalHiiazwbEEYPEHCCAN3370-76-66 09:02:00 Test Item Value Reference Range Interpretation Comments RBC (test code = RBC) 2.63 4.20-5.40 [facility]CycotvdQWOHXWRGOD2516-92-99 09:02:00 Test Item Value Reference Range Interpretation Comments MCV (test code = MCV) 84.8 80.0-98.0 [facility] HospitalIiniuvgVRPGCYXJKI5967-85-23 09:02:00 Test Item Value Reference Range Interpretation Comments MCH (test code = MCH) 29.7 pg 27.0-31.0 [facility] HospitalVqxbhuxEAROPUCSQJ0281-61-20 09:02:00 Test Item Value Reference Range Interpretation Comments MCHC (test code = MCHC) 35.0 32.0-36.0 [facility] HospitalNbiduqcDVKRNUIAHZ7687-59-23 09:02:00 Test Item Value Reference Range Interpretation Comments RDW (test code = RDW) 13.8 11.5-14.5 [facility] HospitalKtjlzgtIKOCEWAIXU5009-12-70 09:02:00 Test Item Value Reference Range Interpretation Comments Platelet (test code = Platelet) 172 133-450 [facility] HospitalScbpzyyHLRAWZUDFL0525-46-19 09:02:00 Test Item Value Reference Range Interpretation Comments MPV (test code = MPV) 9.0 7.4-10.4 [facility] [employer] AINFKAR6420-39-27 09:14:00 Test Item Value Reference Range Interpretation Comments ABO/Rh (test code = ABO/Rh) O POS [facility] [employer] LFMTUVO4879-84-49 09:14:00 Test Item Value Reference Range Interpretation Comments Antibody Scrn (test Negative (08/22/20 code = Antibody Scrn) 3:14 AM) [facility] HospitalKvvclzwQTIFJBIXJV3060-49-31 09:14:00 Test Item Value Reference Range Interpretation Comments Coronavirus (COVID-19) Not Detected ULISSES (test code = (08/22/20 3:14 AM) Coronavirus (COVID-19) ULISSES) [facility] HospitalUznbkupIPGJGSESVS2494-48-53 07:29:35 Test Item Value Reference Range Interpretation Comments PT (test code = PT) 12.7 s 12.0-14.7 [facility] HospitalKilyearOCASOGDTCZ9248-45-51 07:29:35 Test Item Value Reference Range Interpretation Comments INR (test code = INR) 0.95 1 0.85-1.17 [facility]AuphmwhKYMAUNOEJQ0169-16-74 07:29:35 Test Item Value Reference Range Interpretation Comments PTT (test code = PTT) 32.0 s 22.9-35.8 [id number] 07:29:35 Test Item Value Reference Range Interpretation Comments Basophils # (test code = Basophils #) 0.1 <=0.2 [facility] METABOLIC [id number] 06:24:00 Test Item Value Reference Range Interpretation Comments SODIUM (test code = 133 mmol/L 136-145 L NA) POTASSIUM (test code = 5.2 mmol/L 3.5-5.1 H K) CHLORIDE (test code = 98.0 mmol/L 98-107 N CL) CARBON DIOXIDE (test 27.9 mmol/L 21-32 N code = CO2) GLUCOSE (test code = 82 mg/dL 70-110 N GLU) BLOOD UREA NITROGEN 14 mg/dL 7-18 N (test code = BUN) GLOMERULAR FILTRATION 68.3 >60 Unit o f measure: RATE (test code = GFR) mL/mi n/1.73 [id number] Range:Healthy A dults >90 mL/min/1.73 m2 For Chronic Kid ariane Disease: Stage II Mild Decrease i n GFR 60-90 Stage III Moderate Decrea se in GFR 30-59 Stage IV Severe Decrease in GFR 15-29 Stage V Kidney Failure <15 CREATININE (test code 0.84 mg/dL 0.55-1.30 N = CREAT) CALCIUM (test code = 8.7 mg/dL 8.2-10.1 N CA) CBC W/AUTO [id number] 05:57:00 Test Item Value Reference Range Interpretation [...] 0-0 N code = NRBC) BASIC METABOLIC [id number] 15:26:00 Test Item Value Reference Range Interpretation [...] RATE (test code = GFR) mL/mi n/1.73 [id number] Range:Healthy A dults >90 mL/min/1.73 m2 For Chronic Kid ariane Disease: Stage II Mild Decrease i n GFR 60-90 Stage III Moderate Decrea se in GFR 30-59 Stage IV Severe Decrease in GFR 15-29 Stage V Kidney Failure <15 CREATININE (test code 0.70 mg/dL 0.55-1.30 N = CREAT) CALCIUM (test code = 9.3 mg/dL 8.2-10.1 N CA)
[2023-06-04] MEDS ORDERED: NITROGLYCERIN 0.4 MG/TAB SL ONE (12:24)
[2023-06-04 12:34] LABS: Absolute Lymphocytes (CBC) 1.2 K/uL (0.7-4.9); Hematocrit 35.1 % (36.0-45.0); Lymphocytes % 27.6 % (15.3-44.8); MCV 86.8 fL (80-100); MPV 9.3 fL (7.6-11.3); Platelets 212 thou/uL (152-406); RBC Red Blood Cell Count 4.04 M/uL (3.86-4.86)
[2023-06-04 12:50] LABS: Albumin 4.4 g/dL (3.4-5.0); Bilirubin Direct 0.2 mg/dL (0-0.2); Bilirubin Indirect, Calculated 0.5 mg/dL (0.2-0.8); Bilirubin Total 0.7 mg/dL (0.2-1.0); Potassium 3.9 mEq/L (3.5-5.1); Protein, Total 8.1 g/dL (6.4-8.2); Troponin High Sensitivity 36.4 pg/mL (<58.9)
--- NOTE | 2023-06-04 13:47 | RAD REPORT ---
EXAM DESCRIPTION: CT - Angio Aorta For Dissection - 06/04/2023 1:20 pm CLINICAL HISTORY: . Chest and abd pain COMPARISON: 2020 TECHNIQUE: Computed tomography angiography of the chest, abdomen pelvis were obtained. 100 cc Isovue 370 was administered intravenously. Coronal and sagittal reconstruction were performed. MIP 3D reconstruction was performed All CT scans are performed using dose optimization technique as appropriate and may include automated exposure control or mA/KV adjustment according to patient size. FINDINGS: An aortic dissection is not seen. 4.9 centimeter aneurysm ascending thoracic aorta. In retrospect this is what it measured on the 2020 exam The celiac, SMA and PARAS are patent . Mild tree-in-bud opacities right upper lobe A pericardial effusion is not seen. A pleural effusion is not noted. Hepatic hemangioma is either stable or diminished in size. 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 unchanged There no evidence diverticulitis. Hysterectomy. No adnexal mass IMPRESSION: Negative for an aortic dissection. 4.9 centimeter ascending thoracic aortic aneurysm stable 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 is stable
[2023-06-04] MEDS ORDERED: ASPIRIN 81 MG CHEWABLE TABLET ONE (14:33)
--- NOTE | 2023-06-04 14:33 | EDPHYS ---
Physician Documentation [facility] Name: Dary Michaud Age: 68 yrs Sex: Female : 1955 Arrival Date: 06/04/2023 Time: 11:25 Bed 19 Private MD: ED Physician Phil Jacobs HPI: 06/04 12:05 This 68 yrs old Female presents to ER via Ambulatory with complaints of Chest Pain. rt 12:05 Patient presents to the ED with chest pain starting last night. It is worse with rt exertion. Patient was seen by cardiology today, was noted to have new T wave inversions in the lateral leads. She does report a history of an aortic aneurysm, not sure what location it is, stating that it was 4.7 cm. She denies any other aggravating or alleviating factors. Pain is pressure-like in nature, nonradiating, no other aggravating or elevating factors.. Historical: - Allergies: 11:38 PENICILLINS; hb - Home Meds: 11:38 losartan-hydrochlorothiazide 100-12.5 mg Oral tab once daily [Active]; hb 11:40 amlodipine 10 mg oral tablet nightly [Active]; levothyroxine 75 mcg oral tablet daily hb [Active]; metoprolol tartrate 50 mg Oral tablet 2 times per day [Active]; valacyclovir 1 gram Oral tablet 2 times per day [Active]; alendronate 70 mg oral tablet every week [Active]; atorvastatin 40 mg oral tablet nightly [Active]; - PMHx: 11:38 GERD; Hypertension; Hypothyroidism; hb - Immunization history:: Adult Immunizations up to date. - Social history:: Smoking status: . - Family history:: not pertinent. ROS: 12:05 Constitutional: Negative for fever, chills, and weight loss, Abdomen/GI: Negative for rt abdominal pain, nausea, vomiting, diarrhea, and constipation, MS/Extremity: Negative for injury and deformity, Skin: Negative for injury, rash, and discoloration, Neuro: Negative for headache, weakness, numbness, tingling, and seizure, Psych: Negative for depression, anxiety, suicide ideation, homicidal ideation, and hallucinations, 12:05 Cardiovascular: Positive for chest pain, Negative for edema, 12:05 Respiratory: Positive for cough, shortness of breath, Exam: 12:05 Constitutional: This is a well developed, well nourished patient who is awake, alert, rt and in no acute distress. Head/Face: Normocephalic, atraumatic. Chest/axilla: Normal chest wall appearance and motion. Nontender with no deformity. No lesions are appreciated. Cardiovascular: Regular rate and rhythm with a normal S1 and S2. No gallops, murmurs, or rubs. Normal PMI, no JVD. No pulse deficits. Respiratory: Lungs have equal breath sounds bilaterally, clear to auscultation and percussion. No rales, rhonchi or wheezes noted. No increased work of breathing, no retractions or nasal flaring. Abdomen/GI: Soft, non-tender, with normal bowel sounds. No distension or tympany. No guarding or rebound. No evidence of tenderness throughout. Skin: Warm, dry with normal turgor. Normal color with no rashes, no lesions, and no evidence of cellulitis. MS/ Extremity: Pulses equal, no cyanosis. Neurovascular intact. Full, normal range of motion. Neuro: Awake and alert, GCS 15, oriented to person, place, time, and situation. Cranial nerves II-XII grossly intact. Motor strength 5/5 in all extremities. Sensory grossly intact. Cerebellar exam normal. Normal gait. Psych: Awake, alert, with orientation to person, place and time. Behavior, mood, and affect are within normal limits. 12:05 ECG was reviewed by the Attending Physician. Vital Signs: 11:35 BP 148 / 94; Pulse 59; Resp 16; Temp 98.4(TE); Pulse Ox 98% on R/A; Weight 77.11 kg; hb Height 5 ft. 10 in. ; Pain 5/10; 12:22 BP 116 / 80; Pulse 63; Resp 15; Pulse Ox 97% on R/A; kd3 13:24 BP 125 / 83; Pulse 63; Resp 18; Pulse Ox 100% on R/A; mb9 15:19 BP 144 / 98; Pulse 69; Resp 19; Pulse Ox 100% on R/A; kd3 17:27 BP 157 / 95; Pulse 66; Resp 18; Pulse Ox 98% on R/A; kd3 18:12 BP 174 / 91; Pulse 84; Resp 16; Pulse Ox 98% on R/A; kd3 19:47 BP 148 / 99; Pulse 70; Resp 16; Pulse Ox 99% on R/A; kl 11:35 Body Mass Index 24.39 (77.11 kg, 177.8 cm) hb 11:35 Pain Scale: Adult hb MDM: 11:41 Patient medically screened. rt 14:45 Differential diagnosis: Aortic aneurysm, acute coronary syndrome, aortic dissection. rt HEART Score: History: Moderately Suspicious (1), ECG: Non specific repolarization disturbance / LBTB / PM (1), Age: > or = 65 years (2), Risk Factors: 1 or 2 risk factors (1), Troponin: < or = 1 x Normal Limit (0), Total Score = 5. The patient was given aspirin in the Emergency Department. Data reviewed: vital signs, nurses notes, lab test result(s), EKG, radiologic studies. Consideration of Admission/Observation Patient was admitted/placed on observation. Management of patient was discussed with the following: Forensic Document Examiner: Discussed findings including of aneurysm with cardiology, states patient okay to keep here, will arrange for further care once patient is an inpatient.. I considered the following discharge prescriptions or medication management in the emergency department Medications were administered in the Emergency Department. See MAR. Care significantly affected by the following chronic conditions: Hypertension. Counseling: I had a detailed discussion with the patient and/or guardian regarding the historical points, exam findings, and any diagnostic results supporting the discharge/admit diagnosis, lab results, radiology results, the need for further work-up and treatment in the hospital. Response to treatment: the patient's symptoms have markedly improved after treatment. 06/04 11:42 Order name: Basic Metabolic Panel; Complete Time: 12:54 rt 06/04 11:42 Order name: CBC with Diff; Complete Time: 12:54 rt 06/04 11:42 Order name: LFT's; Complete Time: 12:54 rt 06/04 11:42 Order name: Magnesium; Complete Time: 12:54 rt 06/04 11:42 Order name: NT PRO-BNP; Complete Time: 12:54 rt 06/04 11:42 Order name: Troponin HS; Complete Time: 12:54 rt 06/04 17:12 Order name: T4 Free EDMS 06/04 17:12 Order name: Thyroid Stimulating Hormone EDMS 06/04 17:12 Order name: Urinalysis w/ reflexes EDMS 06/04 17:12 Order name: Basic Metabolic Panel EDMS 06/04 17:12 Order name: Basic Metabolic Panel EDMS 06/04 17:12 Order name: CBC with Automated Diff EDMS 06/04 17:12 Order name: CBC with Automated Diff EDMS 06/04 17:12 Order name: Lipid Profile EDMS 06/04 17:12 Order name: Lipid Profile EDMS 06/04 17:12 Order name: Magnesium EDMS 06/04 17:12 Order name: Magnesium EDMS 06/04 17:12 Order name: Phosphorus EDMS 06/04 17:12 Order name: Phosphorus EDMS 06/04 17:12 Order name: Troponin High Sensitivity EDMS 06/04 17:12 Order name: Troponin High Sensitivity EDMS 06/04 17:12 Order name: Troponin High Sensitivity EDMS 06/04 11:42 Order name: CT Aorta for Dissection; Complete Time: 13:48 rt 06/04 11:42 Order name: EKG; Complete Time: 11:42 rt 06/04 17:12 Order name: CONS Physician Consult EDMI 06/04 11:42 Order name: Cardiac monitoring; Complete Time: 12:18 rt 06/04 11:42 Order name: EKG - Nurse/Tech; Complete Time: 11:52 rt 06/04 11:42 Order name: IV Saline Lock; Complete Time: 12:18 rt 06/04 11:42 Order name: Labs collected and sent; Complete Time: 12:18 rt 06/04 11:42 Order name: O2 Per Protocol; Complete Time: 12:18 rt 06/04 11:42 Order name: O2 Sat Monitoring; Complete Time: 12:18 rt EC:05 Rate is 58 beats/min. Rhythm is regular, Sinus bradycardia with Occasional PVCs. QRS rt [place] is Normal. [place] interval is normal. QRS interval is normal. QT interval is normal. No Q waves. Clinical impression: NSR w/ Non-specific ST/T Changes. Administered Medications: 12:16 Drug: Nitroglycerin Sublingual 0.4 mg Sublingual once; every five minute if needed x3 kd3 Route: Sublingual; 12:26 Follow up: Response: No adverse reaction; Pain is decreased kd3 12:52 Drug: Nitroglycerin Sublingual 0.4 mg Sublingual once; every five minute if needed x3 kd3 Route: Sublingual; 15:45 Follow up: Response: No adverse reaction; Pain is decreased kd3 14:21 Drug: Aspirin PO 325 mg PO once Route: PO; mb9 15:19 Follow up: Response: No adverse reaction kd3 Disposition Summary: 06/04/23 14:32 Hospitalization Ordered Notes: Hospitalization Status: Observation rt Provider: Gerber Alberts rt Location: Telemetry/MedSurg (observation) rt Condition: Stable rt Problem: new rt Symptoms: have improved rt Bed/Room Type: Standard rt Room Assignment: 414(06/04/23 18:16) dw Diagnosis - Chest pain, unspecified rt Forms: - Medication Reconciliation Form rt - SBAR form rt - Leadership Thank You Letter rt Signatures: Dispatcher [employer] Margot Vyas RN ANGEL dw Marcela Wilson RN RN Yadira Keen RN RN kd3 Shanti Gaming RN RN mb9 Phil Jacobs MD MD rt Corrections: (The following items were deleted from the chart) 11:42 11:38 Home Meds: amlodipine 5 mg tab 1 tab once daily; hb hb 11:42 11:38 Home Meds: levothyroxine 20 mcg/mL oral solution; hb hb 12:09 12:05 Patient presents to the ED with chest pain described as a pressure-like sensation rt as well as a dyspnea starting last night. Is not worse with exertion. She reports that she was exposed to COVID. 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 She denies other acute complaints at this time, symptoms are moderate in severity, no other aggravating or alleviating factors.. rt 18:16 14:32 rt dw
--- NOTE | 2023-06-04 14:33 | ER ---
Nurse's Notes [facility] Name: Dary Michaud Age: 68 yrs Sex: Female : 1955 Arrival Date: 06/04/2023 Time: 11:25 Bed 19 Private MD: Diagnosis: Chest pain, unspecified Presentation: 06/04 11:35 Chief complaint: Sent by Dr Hernández for left sided chest pain x 2 days and abnormal EKG hb today. Pt reports palpitations and pain gets worse with activity. Coronavirus screen: At this time, the client does not indicate any symptoms associated with coronavirus-19. Ebola Screen: No symptoms or risks identified at this time. Initial Sepsis Screen: Does the patient meet any 2 criteria? No. Patient's initial sepsis screen is negative. Does the patient have a suspected source of infection? No. Patient's initial sepsis screen is negative. Risk Assessment: Do you want to hurt yourself or someone else? Patient reports no desire to harm self or others. Onset of symptoms was June 03, 2023. 11:35 Method Of Arrival: Ambulatory hb 11:35 Acuity: BLANCA 2 hb Historical: - Allergies: 11:38 PENICILLINS; hb - Home Meds: 11:38 losartan-hydrochlorothiazide 100-12.5 mg Oral tab once daily [Active]; hb 11:40 amlodipine 10 mg oral tablet nightly [Active]; levothyroxine 75 mcg oral tablet daily hb [Active]; metoprolol tartrate 50 mg Oral tablet 2 times per day [Active]; valacyclovir 1 gram Oral tablet 2 times per day [Active]; alendronate 70 mg oral tablet every week [Active]; atorvastatin 40 mg oral tablet nightly [Active]; - PMHx: 11:38 GERD; Hypertension; Hypothyroidism; hb - Immunization history:: Adult Immunizations up to date. - Social history:: Smoking status: . - Family history:: not pertinent. Screenin:23 [facility] ED Fall Risk Assessment (Adult) History of falling in the last 3 months, kd3 including since admission No falls in past 3 months (0 pts) Confusion or Disorientation No (0 pts) Intoxicated or Sedated No (0 pts) Impaired Gait No (0 pts) Mobility Assist Device Used No (0 pt) Altered Elimination No (0 pt) Score/Fall Risk Level 0 - 2 = Low Risk Maintained a safe environment. Abuse screen: Denies threats or abuse. Denies injuries from another. Nutritional screening: No deficits noted. Tuberculosis screening: No symptoms or risk factors identified. Assessment: 12:22 General: Appears uncomfortable, Behavior is calm, cooperative. Pain: Complains of pain kd3 in chest Pain does not radiate. Pain began gradually. Cardiovascular: Capillary refill < 3 seconds. 12:26 General: Pt reports improvement of chest pain with 1 nitro. . kd3 17:26 General: Appears comfortable, Behavior is calm, cooperative. Neuro: Level of kd3 Consciousness is awake, alert, obeys commands, Oriented to person, place, time, situation. Cardiovascular: Patient's skin is warm and dry. Respiratory: Airway is patent Trachea midline Respiratory effort is even, unlabored, Respiratory pattern is regular, symmetrical. 18:11 General: Appears comfortable, Behavior is calm, cooperative. Neuro: Level of kd3 Consciousness is awake, alert, obeys commands, Oriented to person, place, time, situation. Cardiovascular: Patient's skin is warm and dry. Respiratory: Airway is patent Trachea midline Respiratory effort is even, unlabored, Respiratory pattern is regular, symmetrical. 19:47 Reassessment: Patient appears in no apparent distress at this time. Patient is alert, kl oriented x 3, equal unlabored respirations, skin warm/dry/pink. Patient denies pain at this time. Patient states feeling better. Critical care time stopped, patient has stabilized. Vital Signs: 11:35 BP 148 / 94; Pulse 59; Resp 16; Temp 98.4(TE); Pulse Ox 98% on R/A; Weight 77.11 kg; hb Height 5 ft. 10 in. ; Pain 5/10; 12:22 BP 116 / 80; Pulse 63; Resp 15; Pulse Ox 97% on R/A; kd3 13:24 BP 125 / 83; Pulse 63; Resp 18; Pulse Ox 100% on R/A; mb9 15:19 BP 144 / 98; Pulse 69; Resp 19; Pulse Ox 100% on R/A; kd3 17:27 BP 157 / 95; Pulse 66; Resp 18; Pulse Ox 98% on R/A; kd3 18:12 BP 174 / 91; Pulse 84; Resp 16; Pulse Ox 98% on R/A; kd3 19:47 BP 148 / 99; Pulse 70; Resp 16; Pulse Ox 99% on R/A; kl 11:35 Body Mass Index 24.39 (77.11 kg, 177.8 cm) hb 11:35 Pain Scale: Adult hb ED Course: 11:30 Patient arrived in ED. mr 11:30 Phil Jacobs MD is Attending Physician. rt 11:38 Triage completed. hb 11:42 Arm band placed on right wrist. hb 11:52 Yadira Keen, ANGEL is Primary Nurse. kd3 12:13 Inserted saline lock: 22 gauge in right antecubital area, using aseptic technique. tt4 12:23 Patient has correct armband on for positive identification. Provided Education on: kd3 Nitroglycerin . Client placed on continuous cardiac and pulse oximetry monitoring. NIBP monitoring applied. home insurance agent on. 12:23 Basic Metabolic Panel Sent. tt4 12:23 CBC with Diff Sent. tt4 12:23 LFT's Sent. tt4 12:23 Magnesium Sent. tt4 12:23 NT PRO-BNP Sent. tt4 12:23 Troponin HS Sent. tt4 12:23 No provider procedures requiring assistance completed. Patient maintains SpO2 kd3 saturation greater than 95% on room air. 13:21 CT Aorta for Dissection In Process Unspecified. EDMS 14:32 Gerber Alberts MD is Hospitalizing Provider. rt 19:47 Patient admitted, IV remains in place. kl Administered Medications: 12:16 Drug: Nitroglycerin Sublingual 0.4 mg Sublingual once; every five minute if needed x3 kd3 Route: Sublingual; 12:26 Follow up: Response: No adverse reaction; Pain is decreased kd3 12:52 Drug: Nitroglycerin Sublingual 0.4 mg Sublingual once; every five minute if needed x3 kd3 Route: Sublingual; 15:45 Follow up: Response: No adverse reaction; Pain is decreased kd3 14:21 Drug: Aspirin PO 325 mg PO once Route: PO; mb9 15:19 Follow up: Response: No adverse reaction kd3 Medication: 12:23 VIS not applicable for this client. kd3 Outcome: 14:32 Decision to Hospitalize by Provider. rt 19:47 Admitted to Tele via wheelchair, room 416, kl 19:47 Condition: stable 19:47 Discharge instructions given to patient, Instructed on the need for admit, Demonstrated understanding of instructions, 20:04 Patient left the ED. as6 Signatures: Dispatcher [employer] EDMS Shira Bullock, RN ANGEL Riley Shanti, [facility] mr WilsonMarcela RN RN hb Kam Glass RN RN as6 Yadira Keen RN RN kd3 Mekhi, Shanti Abreu, ANGEL RN mb9 Phil Jacobs MD MD rt Melinda Gold tt4 Corrections: (The following items were deleted from the chart) 11:40 11:35 BP 148 / 94; Pulse 59bpm; Resp 16bpm; Pulse Ox 98% RA; Temp 98.4F Temporal; Pain hb 810, Adult; hb 11:42 11:38 Home Meds: amlodipine 5 mg tab 1 tab once daily; hb hb 11:42 11:38 Home Meds: levothyroxine 20 mcg/mL oral solution; hb hb
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
[2023-06-04 20:46] LABS: Thyroid Stimulating Hormone 3.78 uIU/mL (0.358-3.740)
[2023-06-04 21:03] VITALS: BMI 24.0
[2023-06-04] MEDS: ONDANSETRON 4 MG/2 ML VIAL IV PRN (21:23)
[2023-06-04] MEDS: NA CHLORIDE 0.9% 1,000 ML IV SCH (21:58)
[2023-06-05] MEDS: NA CHLORIDE 0.9% 1,000 ML IV SCH ×3 (04:00→15:12)
[2023-06-05 06:35] LABS: Absolute Lymphocytes (CBC) 1.3 K/uL (0.7-4.9); Hematocrit 38.2 % (36.0-45.0); Lymphocytes % 25.1 % (15.3-44.8); MCV 87.9 fL (80-100); MPV 9.5 fL (7.6-11.3); Platelets 233 thou/uL (152-406); RBC Red Blood Cell Count 4.34 M/uL (3.86-4.86)
[2023-06-05 06:56] LABS: Magnesium 2.4 mg/dL (1.6-2.4); Phosphorus 2.9 mg/dL (2.5-4.9); Potassium 3.8 mEq/L (3.5-5.1)
[2023-06-05] MEDS: ENOXAPARIN 40 MG/0.4 ML SQ SCH (07:58)
[2023-06-05 08:46] LABS: Specific Gravity 1.014 (1.005-1.030); Urine Bacteria >50 /HPF (<20); Urine Bilirubin NEGATIVE (Negative); Urine Blood Negative (Negative); Urine Clarity Extremely Turbid (Clear); Urine Color Light-Yellow (Yellow); Urine Glucose NEGATIVE (Negative); Urine Mucus Slight /HPF (None Seen); Urine Protein TRACE (Negative); Urine RBC <5 /HPF (None Seen); Urine Urobilinogen Normal (Normal); Urine pH 7.5 (5.0-7.0)
[2023-06-05] MEDS ORDERED: POTASSIUM CL SA 10 MEQ TAB PO ONE (09:00)
[2023-06-05] MEDS ORDERED: CEFTRIAXONE 1,000 MG in NA CHLORIDE 0.9% 50 ML IVPB ONE (09:57)
[2023-06-05] MEDS: ONDANSETRON 4 MG/2 ML VIAL IV PRN ×2 (10:07→19:13)
[2023-06-05] MEDS: MELATONIN 5 MG TABLET PO PRN (20:37)
[2023-06-06] MEDS: NA CHLORIDE 0.9% 1,000 ML IV SCH ×3 (00:14→20:00)
[2023-06-06] MEDS: ONDANSETRON 4 MG/2 ML VIAL IV PRN (02:00)
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
[2023-06-06] MEDS: ENOXAPARIN 40 MG/0.4 ML SQ SCH (07:38)
[2023-06-06 08:10] LABS: Potassium 4.2 mEq/L (3.5-5.1)
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
[2023-06-06] MEDS: MELATONIN 5 MG TABLET PO PRN (21:04)
[2023-06-07 06:57] LABS: Protime INR 0.94
[2023-06-07 10:24] VITALS: TEMP 96.9
[2023-06-07] MEDS: NA CHLORIDE 0.9% 1,000 ML IV SCH (10:31)
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
[2023-06-07] MEDS ORDERED: ATORVASTATIN 40 MG TAB PO SCH (12:00)
[2023-06-07] MEDS ORDERED: CLOPIDOGREL 75 MG TABLET ONE (12:10)
[2023-06-07] MEDS ORDERED: HEPARIN 5000 UNIT/ML 1 ML VIAL ONE (12:10)
[2023-06-07] MEDS ORDERED: HEPA 1000U/500MLS 2,000 UNIT/1,000 ML BAG IV ONE (12:10)
[2023-06-07] MEDS ORDERED: VERAPAMIL HCL 10 MG/4 ML VIAL IV ONE (12:10)
[2023-06-07] MEDS ORDERED: HEPARIN 10,000 UNIT/10 ML VIAL IV ONE (12:10)
[2023-06-07] MEDS ORDERED: ASPIRIN 325 MG TAB ONE (12:10)
[2023-06-07] MEDS ORDERED: ATROPINE SULF 1 MG/10 ML SYR IV ONE (12:11)
[2023-06-07] MEDS ORDERED: TICAGRELOR 90 MG TABLET PO ONE (12:11)
--- NOTE | 2023-06-07 12:24 | EKG ---
Test Date: 2023-06-04 Test Time: 11:41:50 Inter Fold Roll Cutter: DARRYL MEASUREMENT RESULTS: Intervals: Rate: 58 NE: 190 QRSD: 116 QT: 478 QTc: 469 Sutton: P: 54 NE: 190 QRS: 55 T: 63 INTERPRETIVE STATEMENTS: Sinus bradycardia with premature supraventricular complexes Incomplete right bundle branch block Borderline ECG Compared to ECG 01/07/2021 08:14:30 Atrial premature complex(es) now present Incomplete right bundle-branch block now present Sinus rhythm no longer present Right bundle-branch block no longer present Electronically Signed On 06-07-23 12:18:46 CDT by Jorge Hernández
[2023-06-07] MEDS ORDERED: FENTANYL CITR 100 MCG/2 ML ONE (12:30)
[2023-06-07] MEDS ORDERED: MIDAZOLAM HCL 2 MG/2 ML INJ ONE (12:30)
[2023-06-07 14:31] VITALS: BP 114/96; O2SAT 99
[2023-06-07] MEDS ORDERED: CEFDINIR 300 MG CAP PO SCH (15:30)
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
--- NOTE | 2023-06-07 18:45 | CON ---
Date of Consultation: 06/07/2023 Reason For Consultation: Chest pain. History Of Present Illness: This is a 68-year-old female, known patient of mine, who had a stress te st in the past 6 months that was normal, but she presented with chest pain, pressure like, radiates t o her upper extremities on the left and to the neck with activities and gets better with the rest, stahl ggestive of unstable angina. She was hospitalized and troponins have been negative, but she also has thoracic aorta aneurysm that has grown since November about 0.2 cm, now it is at 4.9 cm, rapidly progre ssing. Past Medical History: Hypertension, acid reflux, thoracic aorta aneurysm, and hypothyroidism. Medications: Refer reconciliation sheet for detailed list. Allergies: PENICILLIN. Family History: No premature coronary artery disease or cancer. Social History: She does not smoke or drink. Does not use any drugs. Review of Systems: All systems reviewed are negative except as mentioned in HPI. Physical Examination: Vital Signs: Reviewed. Head and Neck: Pupils are equal, reactive to light. Intact eye movements. No JVD. No cervical lym phadenopathy. Neck is supple. Thyroid is not enlarged. Lungs: Clear to auscultation bilaterally. No rhonchi, wheezing, or crackles. No accessory muscle u se. Heart: Regular rate and rhythm. No extra sounds. Abdomen: Soft, nontender. Bowel sounds positive. No organomegaly. No masses or hernia. No rigidi ty or rebound. Extremities: No edema, clubbing, or cyanosis. Intact pulses. Skin: No rash. Neurologic: Alert, awake, oriented x3. No acute focal deficits appreciated. Investigations: Labs reviewed. Troponins are negative. Assessment/recommendation: 1.Chest pain, atypical, symptoms suggestive of unstable angina. She is n.p.o., plan for coronary an giogram. She will need coronary angiogram anyway because she has thoracic aorta aneurysm that is rap idly progressing and she needs open-heart surgery. See below. 2.Thoracic aorta aneurysm, rapidly progressing, now it is at 4.9, there is a 0.2 cm growth over the past 6 months. We will plan for outpatient assessment by CT Surgery for thoracic aorta aneurysm repa ir. 3.Hypertension. Blood pressure is controlled. Continue current management. SR/MODL Voice ID: [id number] Report ID: [id number]
--- NOTE | 2023-06-07 23:41 | OP ---
Date of Procedure: 06/07/2023 Surgeon: LUIS ARMANDO MACIAS Procedure Performed: 1.Selective coronary angiogram. 2.Left heart catheterization. Indication: Unstable angina. Access: Right radial artery 6-Thai closed with TR band. Complications: None. Bleeding: Less than 20 mL. Anesthesia: Total sedation time was 30 minutes. Description Of Procedure: After risks, benefits, alternatives were explained, patient agreed to proc eed and signed informed consent. The patient was brought into cardiac catheterization laboratory, pr epped and draped in usual sterile fashion. Then, I accessed right radial artery using pediatric micr opuncture kit, placed 6-Thai Slender sheath and took 5-Thai [place] 4.0 catheter into the aortic ro ot over J-wire, engaged left main and then right coronary artery and took standard views, and then th e catheter was pushed over the wire into the LV, and measured the LVEDP. Pullback did not record any gradient. Then, removed the catheter and sheath, placed TR band with good hemostasis. Findings: 1.Left main very large, aneurysmal, normal, no disease. 2.LAD, large, normal, aneurysmal, normal diagonal branches. 3.Left circumflex, very large and aneurysmal, but normal. 4.RCA, it is moderate size with no significant disease. 5.LVEDP is borderline at 11 mmHg. Conclusion: 1.No coronary artery disease, but she has aneurysmal coronary arteries likely the cause of her sympt oms. 2.Normal LVEDP. Plan: Medical management. /CALLUM Voice ID: [id number] Report ID: [id number]
== END 2023-06-07 16:45 | disposition home or self-care (01) | DRG 287 ==
LOC: ER 11:25 → ERHOLD 17:05 → 4TH 19:57 → OBSVTOIN 06-06 10:33
PROVIDERS: ADMIT Hospitalist; ATTEND Internal Medicine
PROC: 4A023N7 Measurement of Cardiac Sampling and Pressure, Left Heart, Percutaneous Approach (ICD-10-PCS; principal; 2023-06-07)
PROC: B2111ZZ Fluoroscopy of Multiple Coronary Arteries using Low Osmolar Contrast (ICD-10-PCS; 2023-06-07)
DX: I71.21 Aneurysm of the ascending aorta, without rupture (principal); E87.1 Hypo-osmolality and hyponatremia; N39.0 Urinary tract infection, site not specified; I20.0 Unstable angina; I10 Essential (primary) hypertension; E03.9 Hypothyroidism, unspecified; E78.5 Hyperlipidemia, unspecified; E27.9 Disorder of adrenal gland, unspecified; D18.09 Hemangioma of other sites; G47.33 Obstructive sleep apnea (adult) (pediatric); K21.9 Gastro-esophageal reflux disease without esophagitis; B96.20 Unspecified Escherichia coli [E. coli] as the cause of diseases classified elsewhere; Z88.0 Allergy status to penicillin; Z99.89 Dependence on other enabling machines and devices; Z91.198 Patient's noncompliance with other medical treatment and regimen for other reason; Z79.890 Hormone replacement therapy; Z79.899 Other long term (current) drug therapy
CPT/HCPCS: 36415; 71275; 74175; 76937; 80048; 80061; 80076; 81001; 83735; 83880; 84100; 84439; 84443; 84484; 85025; 85610; 87077; 87086; 87088; 87186; 93005; 93458; 99285; C1893; G0378; J0461; J0696; J1644; J1650; J2250; J2405; J3010; J7030; Q9966; Q9967

== ENCOUNTER 2023-06-24 06:25 | Day surgery (SDC) | payer OTHER ==
[2023-06-24] MEDS: Ringers Lactate 1,000 ML IV ONE ×2 (06:25→07:00)
[2023-06-24] MEDS ORDERED: propofoL 200 MG/20 ML VIAL IV ONE (07:08)
[2023-06-24] MEDS ORDERED: LIDOCAINE 1% MPF 5 ML VIAL ONE (07:08)
[2023-06-24 14:49] VITALS: BP 130/74; TEMP 97.7; O2SAT 100
--- NOTE | 2023-06-25 21:07 | OP ---
Date of Procedure: 06/24/2023 Surgeon: VANDANA TIDWELL Preoperative Diagnosis: Chronic obstructive sleep apnea, intolerant to nightly CPAP therapy. Postoperative Diagnosis: Chronic obstructive sleep apnea, intolerant to nightly CPAP therapy. Procedure: Drug-induced sleep endoscopy. Anesthesia: General IV sedation was given and patient was given oxygen via full facemask. Specimens: None. Estimated Blood Loss: None. Findings: At least 80% anterior/posterior velopharyngeal collapse and less than 10% lateral velophar yngeal collapse and no evidence of concentric collapse. Complications: None. Disposition: Stable. The patient tolerated the procedure well. Indications For Procedure: The patient is a pleasant 68-year-old female [facility] in which she has been using a CPAP mask for years and has become intolerant to the mask. The patient has loud nightly snoring and the mass hurts her face. Thus, these were indications to bring the patient to operative suite to see if she could be a cameron date for the Inspire hypoglossal nerve neurostimulator implant procedure. She understood. All quest ions were answered. Risks versus benefits and complications were explained in detail and a consent f orm was signed, which was placed in the chart. Description Of Procedure: The patient was transferred from the preoperative holding area to the oper ative suite by Department of Anesthesia, placed on the operating table supine, and sedated in the nor mal fashion. Once propofol was given, the patient was fully asleep. I utilized the 0 degree endosco pe and I inserted into the left nasal cavity along the floor of the nasal cavity back to the level of the velopharynx. We observed her velopharynx for approximately 3-5 minutes and were able to record the procedure showing the anterior and posterior collapse. There was no evidence of concentric colla pse and very minimal lateral collapse. After the 5-minute period of observation, the scope was compl etely removed and the patient tolerated the procedure well. She was transferred back to Department of Anesthesia awakened and discharged home in stable condition . She will follow up in a week or 2 to set up for the Inspire implant procedure. OBI/CALLUM Voice ID: [id number] Report ID: [id number]
== END 2023-06-24 08:20 | disposition still patient (30) ==
LOC: OR 06:25
PROVIDERS: ATTEND Otolaryngology Facial Plastic Surgery
PROC: 0CJY8ZZ Inspection of Mouth and Throat, Via Natural or Artificial Opening Endoscopic (ICD-10-PCS; principal; 2023-06-24 07:30)
DX: G47.33 Obstructive sleep apnea (adult) (pediatric) (principal); J34.89 Other specified disorders of nose and nasal sinuses
CPT/HCPCS: 42975; J2704; J2001; J7120

== ENCOUNTER 2023-07-16 06:16 | Day surgery (SDC) | payer OTHER ==
[2023-07-14 11:23] LABS: Potassium 4.1 mEq/L (3.5-5.1)
[2023-07-16] MEDS ORDERED: Ringers Lactate 1,000 ML IV ONE (06:44)
[2023-07-16] MEDS ORDERED: CLINDAMYCIN 900MG/D5W 900 MG/50 ML IVPB IV ONE (06:44)
[2023-07-16] MEDS ORDERED: SUGAMMADEX SODIUM 200 MG/2 ML VIAL IV ONE (07:15)
[2023-07-16] MEDS ORDERED: ROCURONIUM 50 MG/5 ML VIAL IV ONE (07:15)
[2023-07-16] MEDS ORDERED: SUCCINYLCHOLINE 20 MG/ML (10 ML) IV ONE (07:15)
[2023-07-16] MEDS ORDERED: propofoL 200 MG/20 ML VIAL IV ONE (07:21)
[2023-07-16] MEDS ORDERED: MIDAZOLAM HCL 2 MG/2 ML INJ ONE (07:22)
[2023-07-16] MEDS ORDERED: LIDOCAINE 2% MPF 5 ML VIAL ONE (07:22)
[2023-07-16] MEDS ORDERED: ONDANSETRON 4 MG/2 ML VIAL ONE ×2 (07:22→11:46)
[2023-07-16] MEDS ORDERED: dexAMETHasone 10 MG/ML VIAL ONE (07:22)
[2023-07-16] MEDS ORDERED: KETOROLAC 30 MG/ML INJ ONE (07:22)
[2023-07-16] MEDS ORDERED: FENTANYL CITR 250 MCG/5 ML ONE (07:22)
[2023-07-16] MEDS ORDERED: LIDOCAINE HCL/EPINEPHRINE 20 ML MDV ONE (07:23)
[2023-07-16] MEDS ORDERED: EPINEPHRINE/PF 1 MG/ML AMP ONE (07:23)
[2023-07-16] MEDS ORDERED: BUPIVACAINE 0.25% PF 10 ML VIAL ONE (07:23)
[2023-07-16] MEDS ORDERED: BACITRACIN OINTMENT 14 GM TUBE TOP ONE (07:38)
[2023-07-16] MEDS ORDERED: EPHEDRINE SULF 50 MG/ML VIAL ONE (08:17)
[2023-07-16] MEDS ORDERED: FENTANYL CITR 100 MCG/2 ML ONE (09:49)
[2023-07-16] MEDS ORDERED: NS 0.9% VIAL 10 ML ONE (11:07)
[2023-07-16] MEDS ORDERED: HYDROMORPHONE HCL 1 MG/ML INJ ONE (12:04)
--- NOTE | 2023-07-16 12:26 | RAD REPORT ---
EXAM DESCRIPTION: RAD - Neck Soft Tissue - 07/16/2023 12:15 pm CLINICAL HISTORY: NSPIRE IMPLANT FINDINGS: Superior lead overlies the base of the tongue
--- NOTE | 2023-07-16 12:26 | RAD REPORT ---
EXAM DESCRIPTION: Skylar Single View07/16/2023 12:15 pm CLINICAL HISTORY: NSPIRE IMPLANT placement FINDINGS: Battery pack and lead overlies the right chest. The lead extends superiorly into the neck
[2023-07-16] MEDS ORDERED: PROMETHAZINE INJ 25 MG/ML AMP ONE (12:33)
[2023-07-16] MEDS ORDERED: ACETAMINOPHEN 325 MG TABLET ONE (13:37)
[2023-07-16 14:16] VITALS: BP 125/76; TEMP 97; O2SAT 97
--- NOTE | 2023-07-17 21:47 | OP ---
Date of Procedure: 07/16/2023 Surgeon: VANDANA TIDWELL Preoperative Diagnoses: 1.Obstructive sleep apnea with positive airway pressure intolerance. 2.Body mass index between 24.0 and 24.9. Postoperative Diagnoses: 1.Obstructive sleep apnea with positive airway pressure intolerance. 2.Body mass index between 24.0 and 24.9. Procedure: Twelfth cranial nerve hypoglossal stimulation implant with placement of chest wall respir atory sensor and neurostimulator electrode. Anesthesia: General endotracheal anesthesia was administered. I also infiltrated approximately 10 m L of 1% lidocaine with 1:100,000 epinephrine at the neck incision and chest incision sites. Estimated Blood Loss: Between 5 and 10 mL. Specimens: None. Findings: Excellent tongue mobility and protrusion on the lowest setting of 0.1. We had excellent v isualization of the hyoglossus and hypoglossal nerve. Respiratory sensor electrode was easily placed between the external and intercostal muscles, in which the junction point was easily visualized duri ng the procedure. Complications: None. Disposition: Stable. The patient tolerated procedure well. Indication For Procedure: The patient is a pleasant 68-year-old female who has had longstanding obst ructive sleep apnea with an associated BMI of 24.4. Sleep evaluation revealed mild SHARA with AHI of 6 , and no mixed apneas. Drug-induced sleep endoscopy revealed predominant anterior/posterior collapse of the velopharynx with less than 75% of lateral collapse and no evidence of concentric collapse. S he has passed the clinical polysomnographic and endoscopic screening criteria, and presents today for the implant. Description Of Procedure: The patient was brought to the operating room and anesthetized via general endotracheal anesthesia without complication. A shoulder roll was not needed as the patient's neck and head extension were adequate. The head was rotated to the left, and I injected approximately 10 mL of 1% lidocaine with 1:100,000 epinephrine at the neck and chest incision sites. Prior to preppin g and draping, electrodes were placed in the genioglossus and hyoglossus muscles, and connected to th e nerve integrity monitoring system. A modified submandibular incision was made into the right upper neck approximately 2 cm below the mandible. Dissection was carried down through the subcutaneous ti ssue and platysma. The anterior/inferior border of the submandibular gland was identified as well as the digastric tendon. The submandibular gland and the overlying fascia with marginal mandibular ner ve were retracted posteriorly. The digastric tendon was retracted inferiorly and dissection continue d down into the digastric triangle, and the posterior border of the mylohyoid was freed up and retrac teresa anteriorly. With balanced retraction, the hypoglossal nerve was identified in a variable fashion as there was no definitive functional break between the hyoglossus and the hypoglossal nerve, but we were able to dissect up toward the floor of the mouth, taking care to separate the hyoglossus branch es from the hypoglossal nerve branches. I also had to free up the vena comitans off the hypoglossal nerve; however, we did not have to sacrifice the vein. We just retracted it with 2 vessel loops. Th e superior/posterior branches innervating the hyoglossus muscle were then easily identified after joshua ntifying the functional break point using the NIM stimulator and anatomical cues. The cuff electrode for the hypoglossal nerve stimulator was placed distally to these branches intervening genioglossus, transverse, and vertical muscles and we were able to include C1 branch in the cuff. I had to dissec t medial at least 1.5 cm in order to fit the cuff around the nerve. The stimulation lead was then an chored to the digastric tendon using two 3-0 silk sutures and leave body slack between the cuff and t he anchor gently tucked deep to the submandibular gland. A second 5 cm incision was made in the right upper chest over the second intercostal space, approxima tely 3 cm lateral to the sternal margin. Dissection was carried down through the skin and subcutaneo us tissue to the fascia of the pectoralis muscle. An inferior pocket for the generator was created d eep to the subcutaneous layer and superficial to the fascia of the pectoralis muscle. The pectoralis major fascia was dissected directly over the second intercostal space with subsequent blunt dissecti on through the muscle. The pectoralis major/minor muscle was then retracted to expose the fatty laye r just superficial to the external intercostal muscles. The fatty layer was carefully from intercostal muscles. A base knot was placed to the fascia of the external intercostals j ust lateral to the anterior external membrane using 3-0 silk suture. The fasciotomy through the exte rnal intercostals was performed approximately 5 mm lateral to the suture knot with a Begum dissector and the respiratory sensor lead was advanced with a sensor facing pleura into the inner fascial plan e between the external and internal intercostals. The primary anchor was sutured into place with 3-0 silk on the external intercostals. The secondary anchor was sutured with 3-0 silk to the pectoralis major allowing adequate slack between the anchors. The stimulation lead was then tunneled in a subplatysmal plane with blunt dissection under direct vis ualization and brought out into the subclavicular pocket, where both the stimulation lead and respira tory sensing lead were connected to the implantable pulse generator using the 2-person 3-handed appro ach. The implantable pulse generator was placed in the subclavicular pocket ensuring lead body was deep to the generator and secured with the use of air knots to the pectoralis fascia using 2-0 silk sutures. Diagnostic evaluation confirmed good placement of the stimulation cuff as demonstrated by activatio n of the genioglossus, transverse and vertical muscles of the hypoglossal nerve resulting in unhinder ed stiffened tongue protrusion confirmed visually down to a threshold of 0.1. Diagnostic evaluation also confirmed good respiratory sensor placement as demonstrated by sensing waveform with good rise a nd fall associated with the patient. All the wounds were thoroughly irrigated and closed in 3 layers with deep 3-0 Vicryl sutures, and then the dermis and epidermis were reapproximated in a clear fashi on with 4-0 Monocryl. Mastisol and Steri-Strips were applied, followed by pressure dressings. The p atient was then awakened, extubated, and transferred to the recovery room in stable condition. I ___ procedure. She was then discharged home on antibiotic and analgesic medications, and will follow up in 1 week or sooner if needed. OBI/CALLUM Voice ID: [id number] Report ID: [id number]
== END 2023-07-16 14:05 | disposition home or self-care (01) ==
LOC: OR 06:16
PROVIDERS: ATTEND Otolaryngology Facial Plastic Surgery
PROC: 0JH63MZ Insertion of Stimulator Generator into Chest Subcutaneous Tissue and Fascia, Percutaneous Approach (ICD-10-PCS; principal; 2023-07-16 07:30)
DX: G47.33 Obstructive sleep apnea (adult) (pediatric) (principal); R06.83 Snoring; Z68.24 Body mass index [BMI] 24.0-24.9, adult
CPT/HCPCS: 80048; 36415; 71045; 70360; 64582; J2550; A4216; J2704; J2001; J2250; J3010; J1100; J1170; J2405 ×2; J7120; J0171

== ENCOUNTER 2024-01-04 10:52 | Observation (INO) | payer OTHER ==
[2024-01-04] MEDS ORDERED: NA CHLORIDE 0.9% 1,000 ML ONE (11:08)
--- NOTE | 2024-01-04 11:23 | RAD REPORT ---
EXAM DESCRIPTION: CT - Head Brain Wo Cont - 01/04/2024 11:09 am CLINICAL HISTORY: Syncope;Seizure Headache, drowsiness COMPARISON: No comparisons TECHNIQUE: All CT scans are performed using dose optimization technique as appropriate and may inclu de automated exposure control or mA/KV adjustment according to patient size. FINDINGS: No intracranial hemorrhage, hydrocephalus or extra-axial fluid collection.No areas of brai n edema or evidence of midline shift. The paranasal sinuses and mastoids are clear. The calvarium is intact. IMPRESSION: No acute intracranial abnormality.
[2024-01-04 11:29] LABS: Absolute Basophils 0.1 K/uL (0-0.5)
--- NOTE | 2024-01-04 11:31 | RAD REPORT ---
EXAM DESCRIPTION: RAD - Chest Single View - 01/04/2024 11:24 am CLINICAL HISTORY: CHEST PAIN Chest pain. COMPARISON: Chest Single View dated 07/16/2023; Chest Single View dated 01/07/2021 FINDINGS: Portable technique limits examination quality. The lungs are emphysematous but grossly clear. The heart is upper limit normal in size with a tortuou s thoracic aorta. Left clavicular hardware noted. Right-sided stimulator. IMPRESSION: No acute intrathoracic process suspected.
[2024-01-04 11:50] LABS: Specific Gravity 1.014 (1.005-1.030); Sqamous Epithelial None Seen /HPF (None Seen); Transitional Epithelial <5 /HPF (None Seen); Urine Bacteria >50 /HPF (<20); Urine Bilirubin NEGATIVE (Negative); Urine Blood Negative (Negative); Urine Clarity Turbid (Clear); Urine Color Light-Yellow (Yellow); Urine Culture Reflex Order NOT NEEDED; Urine Glucose NEGATIVE (Negative); Urine Ketones NEGATIVE (Negative); Urine Micro Reflex YN NO BILL MICROSCOPIC; Urine Mucus Slight /HPF (None Seen); Urine Nitrite NEGATIVE (Negative); Urine Protein 2+ (Negative); Urine RBC <5 /HPF (None Seen); Urine Urobilinogen Normal (Normal); Urine WBC <5 /HPF (<5)
[2024-01-04 13:16] LABS: RBC Red Blood Cell Count 3.91 M/uL (3.86-4.86)
[2024-01-04 13:17] LABS: Hematocrit 33.6 % (36.0-45.0); Hemoglobin 11.2 g/dL (12.0-15.0)
[2024-01-04 13:18] LABS: MCH 28.7 pg (27.0-35.0); MCHC 33.4 g/dL (32.0-36.0); MCV 85.9 fL (80-100); Platelets 209 thou/uL (152-406)
[2024-01-04 13:19] LABS: MPV 9.2 fL (7.6-11.3); Red Cell Distribution Width 15.3 % (12.1-15.2)
[2024-01-04 13:20] LABS: Eosinophils % 2.3 % (0-4.4); Lymphocytes % 11.4 % (15.3-44.8); Monocytes % 6.7 % (3.3-12.3); Neutrophils % 78.3 % (41.7-73.7)
[2024-01-04 13:21] LABS: Absolute Neutrophil 5.3 K/uL (1.8-8.0); Basophils % 1.3 % (0-1.3); Nucleated Red Blood Cells % 0.1 % (0-0)
[2024-01-04 13:22] LABS: Absolute Eosinophils 0.2 K/uL (0-0.5); Absolute Lymphocytes (CBC) 0.8 K/uL (0.7-4.9); Absolute Monocytes 0.5 K/uL (0.1-1.3)
[2024-01-04 13:33] LABS: Albumin 3.9 g/dL (3.4-5.0); Albumin/Globulin Ratio 1.2 (1.1-1.8); Anion Gap 7.6 mEq/L (5.0-15.0); Bilirubin Direct 0.2 mg/dL (0-0.2); Bilirubin Indirect, Calculated 0.5 mg/dL (0.2-0.8); Bilirubin Total 0.7 mg/dL (0.2-1.0); Globulin 3.3 g/dL (2.3-3.5); Potassium 3.6 mEq/L (3.5-5.1); Protein, Total 7.2 g/dL (6.4-8.2)
[2024-01-04 13:39] LABS: Troponin High Sensitivity 84.8 pg/mL (<58.9)
--- NOTE | 2024-01-04 13:59 | EKG ---
Test Date: 2024-01-04 Test Time: 11:11:19 Colliery Clerk: JONATHAN MEASUREMENT RESULTS: Intervals: Rate: 59 IA: 158 QRSD: 118 QT: 492 QTc: 487 [place]: P: -1 IA: 158 QRS: 47 T: 250 INTERPRETIVE STATEMENTS: Sinus bradycardia ST & T wave abnormality, consider inferior ischemia Prolonged QT Abnormal ECG Compared to ECG 06/04/2023 11:41:50 ST (T wave) deviation now present Possible ischemia now present Prolonged QT interval now present Atrial premature complex(es) no longer present Incomplete right bundle-branch block no longer present Electronically Signed On 01-04-24 13:57:46 CDT by Jorge Hernández
--- NOTE | 2024-01-04 14:37 | ER ---
Nurse's Notes [facility] Name: Dary Michaud Age: 68 yrs Sex: Female : 1955 Arrival Date: 01/04/2024 Time: 10:52 Bed 5 Private MD: Diagnosis: Subsequent non-ST elevation (NSTEMI) myocardial infarction;Syncope Near Presentation: 01/03 10:50 Chief complaint: EMS states: AT BANK AND HAD A SYNCOPAL EPISODE. FOUND BY STAFF db UNRESPONSIVE SITTING IN CHAIR WITH STIFF ARMS AND "SNORING" RESPIRATIONS. NO HX OF SEIZURES. PT COMPLAINED OF NAUSEA AFTER INCIDENT. Coronavirus screen: Vaccine status: Patient reports receiving the 2nd dose of the covid vaccine. Client denies travel out of the [place] in the last 14 days. At this time, the client does not indicate any symptoms associated with coronavirus-19. Ebola Screen: Patient negative for fever greater than or equal to 101.5 degrees Fahrenheit, and additional compatible Ebola Virus Disease symptoms Patient denies exposure to infectious person. Patient denies travel to an Ebola-affected area in the 21 days before illness onset. No symptoms or risks identified at this time. Initial Sepsis Screen: Does the patient meet any 2 criteria? No. Patient's initial sepsis screen is negative. Does the patient have a suspected source of infection? No. Patient's initial sepsis screen is negative. Risk Assessment: Do you want to hurt yourself or someone else? Patient reports no desire to harm self or others. Onset of symptoms was January 04, 2024. Care prior to arrival: Medication(s) given: zofran 4 mg, IV initiated. 20 GA, in the right wrist, Glucose check: 196. Activity prior to arrival: unresponsive. 10:50 Method Of Arrival: EMS: [facility] db 10:50 Acuity: BLANCA 2 db Triage Assessment: 10:50 General: Appears in no apparent distress. comfortable, Behavior is calm, cooperative. db Respiratory: Airway is patent. 11:22 Pain: Denies pain. Neuro: Level of Consciousness is awake, alert, obeys commands, db Oriented to person, place, time, situation, Speech is normal, Facial symmetry appears normal, Reports a syncopal episode. Historical: - Allergies: 11:22 PENICILLINS; db - PMHx: 11:22 GERD; Hypertension; Hypothyroidism; db - Immunization history:: Adult Immunizations unknown, Client reports receiving the 2nd dose of the Covid vaccine. - Infectious Disease History:: Denies. - Social history:: Smoking status: Patient denies any tobacco usage or history of. Screenin:23 [facility] ED Fall Risk Assessment (Adult) History of falling in the last 3 months, db including since admission No falls in past 3 months (0 pts) Confusion or Disorientation No (0 pts) Intoxicated or Sedated No (0 pts) Impaired Gait No (0 pts) Mobility Assist Device Used No (0 pt) Altered Elimination No (0 pt) Score/Fall Risk Level 0 - 2 = Low Risk Oriented to surroundings, Maintained a safe environment. Abuse screen: Denies threats or abuse. Denies injuries from another. Nutritional screening: No deficits noted. Tuberculosis screening: No symptoms or risk factors identified. Assessment: 11:24 Reassessment: Patient appears in no apparent distress at this time. Patient and/or db family updated on plan of care and expected duration. Pain level reassessed. Patient is alert, oriented x 3, equal unlabored respirations, skin warm/dry/pink. General: Appears in no apparent distress. comfortable, Behavior is calm, cooperative. Neuro: Level of Consciousness is awake, alert, obeys commands, Oriented to person, place, time, situation. Cardiovascular: Rhythm is regular. 13:33 Reassessment: Patient and/or family updated on plan of care and expected duration. Pain rs5 level reassessed. Patient is alert, oriented x 3, equal unlabored respirations, skin warm/dry/pink. 14:00 Reassessment: Patient appears in no apparent distress at this time. Patient and/or db family updated on plan of care and expected duration. Pain level reassessed. Patient is alert, oriented x 3, equal unlabored respirations, skin warm/dry/pink. 15:00 Reassessment: Patient appears in no apparent distress at this time. Patient and/or db family updated on plan of care and expected duration. Pain level reassessed. Patient is alert, oriented x 3, equal unlabored respirations, skin warm/dry/pink. General: Appears in no apparent distress. comfortable. 16:41 Reassessment: Patient appears in no apparent distress at this time. Patient and/or db family updated on plan of care and expected duration. Pain level reassessed. Patient is alert, oriented x 3, equal unlabored respirations, skin warm/dry/pink. General: Appears in no apparent distress. comfortable, Behavior is calm, cooperative. Neuro: Level of Consciousness is awake, alert, obeys commands, Oriented to person, place, time, situation. Vital Signs: 10:50 BP 173 / 98; Pulse 60; Resp 15; Temp 98(O); Pulse Ox 98% ; Weight 74.84 kg; Height 5 db ft. 10 in. ; Pain 0/10; 11:00 BP 154 / 83; Pulse 59; Resp 16; Pulse Ox 97% on R/A; db 12:30 BP 156 / 94; Pulse 59; Resp 18; Pulse Ox 99% on R/A; db 13:00 BP 171 / 91; Pulse 62; Resp 16; Pulse Ox 97% on R/A; db 14:00 BP 201 / 98; Pulse 64; Resp 16; Pulse Ox 100% ; db 15:30 BP 143 / 83; Pulse 67; Resp 16; Temp 98; Pulse Ox 97% ; db 16:00 BP 111 / 72; Pulse 73; Resp 16; Pulse Ox 96% on R/A; db 10:50 Body Mass Index 23.67 (74.84 kg, 177.8 cm) db 10:50 Pain Scale: Adult db Pablo Coma Score: 11:23 Eye Response: spontaneous(4). Motor Response: obeys commands(6). Verbal Response: db oriented(5). Total: 15. NIH Stroke Scale Scores: 11:23 NIHSS Score: 0 db ED Course: 10:50 Arm band placed on Patient placed in an exam room. db 10:54 Patient arrived in ED. ec2 10:54 Damon Fair MD is Attending Physician. ec2 11:01 Sarina Ferrera, ANGEL is Primary Nurse. db 11:11 CT Head Brain wo Cont In Process Unspecified. EDMS 11:18 Initial lab(s) drawn, by me, sent to lab. EKG done, by ED staff. Inserted saline lock: jg11 20 gauge in right antecubital area, using aseptic technique. Blood collected. Maintain EMS IV. Dressing intact. Site clean \\T\\ dry. 11:19 Patient has correct armband on for positive identification. Bed in low position. Call jg11 light in reach. Side rails up X 1. Side rails up X2. Warm blanket given. Client placed on continuous cardiac and pulse oximetry monitoring. NIBP monitoring applied. groundwater monitoring technician on. 11:22 Triage completed. db 11:26 XRAY Chest (1 view) In Process Unspecified. EDMS 11:39 Urine collected: clean catch specimen, clear. jg11 11:39 UAM Sent. jg11 11:39 Basic Metabolic Panel Sent. jg11 11:39 LFT's Sent. jg11 11:39 Assisted to bathroom. jg11 12:11 Lab(s) recollected, by me, sent to lab. jg11 12:33 Lab(s) recollected, by me, sent to lab. jg11 12:55 Lab(s) recollected, by me, sent to lab. db 13:40 Notified ED physician of a critical lab result(s). troponin 84.8. ap3 13:55 Repeat lab(s) drawn. by me, sent to lab. db 14:36 Lorenzo Parry MD is Hospitalizing Provider. ec2 15:46 No provider procedures requiring assistance completed. Patient admitted, IV remains in db place. 16:41 Provided Education on: LABS AND ADMISSION. db Administered Medications: 11:10 Drug: NS 0.9% IV 1000 ml IV at 1 bolus Per protocol; 1000 mL bolus Route: IV; Rate: 1 db bolus; Site: right wrist; 16:43 Follow up: Response: No adverse reaction; IV Status: Completed infusion; IV Intake: db 1000ml 14:40 Drug: Aspirin PO Chewable Tablet 324 mg PO once; 81 mg tablets x 4 Route: PO; rs5 16:43 Follow up: Response: No adverse reaction db 14:40 Drug: Enoxaparin Sub-Q 1 mg/kg Sub-Q once Route: Sub-Q; Site: left lower abdomen; rs5 16:42 Follow up: Response: No adverse reaction db Medication: 11:24 VIS not applicable for this client. db Intake: 16:43 IV: 1000ml; Total: 1000ml. db Outcome: 14:36 Decision to Hospitalize by Provider. ec2 16:41 Admitted to ER Hold. Please see [facility] for further documentation. db 16:41 Condition: stable 16:41 Instructed on the need for admit, 16:43 Patient left the ED. iw NIH Stroke Scale - NIH Stroke Score Date: 01/04/2024 Time: 11:23 Total Score = 0 10. Dysarthria (speech clarity - read or repeat words) - 0(Normal) 11. Extinction and Inattention (visual/tactile/auditory/spatial/personal) - 0(No abnormality) 1a. Level of Consciousness (LOC) - 0(Alert) 1b. Level of Consciousness (LOC) (Month \\T\\ Age) - 0(Both) 1c. LOC Commands (Open \\T\\ Closes Eyes/Chief Security Officer) - 0(Both) 2. Best Gaze (Lateral Gaze Paresis) - 0(Normal) 3. Visual Field Loss - 0(No visual loss) 4. Facial Palsy - 0(Normal) 5a. Left Arm: Motor (10-second hold) - 0(No drift) 5b. Right Arm: Motor (10-second hold) - 0(No drift) 6a. Left Leg: Motor (5-second hold - always test supine) - 0(No drift) 6b. Right Leg: Motor (5-second hold - always test supine) - 0(No drift) 7. Limb Ataxia (finger/nose \\T\\ heel/dill - test with eyes open) - 0(Absent) 8. Sensory Loss (pinprick arms/legs/face) - 0(Normal) 9. Best Language: Aphasia (description/naming/reading) - 0(No aphasia) Initials: db Signatures: Dispatcher [employer] EDMS Jessica Villegas RN RN iw Kesha Segal RN RN ap3 Sarina Ferrera RN RN db Kaiden Roberson RN RN rs5 Damon Fair MD MD ec2 Mark King jg11 Corrections: (The following items were deleted from the chart) 13:50 12:11 TYPE AND SCREEN+BB.LAB.BRZ drawn and sent. jg11 EDDC 14:50 14:40 Enoxaparin Sub-Q 74.84 mg Sub-Q in left upper abdomen rs5 rs5
--- NOTE | 2024-01-04 14:37 | EDPHYS ---
Physician Documentation [facility] Name: Dary Michaud Age: 68 yrs Sex: Female : 1955 Arrival Date: 01/04/2024 Time: 10:52 Bed 5 Private MD: ED Physician Damon Fair HPI: 01/03 10:55 This 68 yrs old Female presents to ER via Unassigned with complaints of ec2 possible seizure. 10:55 Patient arrives today for evaluation of possible seizure activity. Patient was seated ec2 in the bank and subsequently found to be unresponsive. Unclear if patient had any seizure-like activity. Patient reports no history of seizure. Otherwise no other symptoms, no chest pain or difficulty breathing, no abdominal pain, no nausea or vomiting. Patient reports she is otherwise has been in normal state of health the past several days.. Historical: - Allergies: 11:22 PENICILLINS; db - PMHx: 11:22 GERD; Hypertension; Hypothyroidism; db - Immunization history:: Adult Immunizations unknown, Client reports receiving the 2nd dose of the Covid vaccine. - Infectious Disease History:: Denies. - Social history:: Smoking status: Patient denies any tobacco usage or history of. ROS: 10:55 Constitutional: as per hpi ec2 Exam: 10:55 Constitutional: GEN: NAD Head: atraumatic Eyes: EOMI Ears: External ears are ec2 normal. CV: regular rate LUNGS: no respiratory distress ABD: non-distended SKIN: no evidence of rashes MSK: no evidence of trauma NEURO: moves all extremities equally, cranial nerves II through XII intact, strength intact upper extremities. Vital Signs: 10:50 BP 173 / 98; Pulse 60; Resp 15; Temp 98(O); Pulse Ox 98% ; Weight 74.84 kg; Height 5 db ft. 10 in. ; Pain 0/10; 11:00 BP 154 / 83; Pulse 59; Resp 16; Pulse Ox 97% on R/A; db 12:30 BP 156 / 94; Pulse 59; Resp 18; Pulse Ox 99% on R/A; db 13:00 BP 171 / 91; Pulse 62; Resp 16; Pulse Ox 97% on R/A; db 14:00 BP 201 / 98; Pulse 64; Resp 16; Pulse Ox 100% ; db 15:30 BP 143 / 83; Pulse 67; Resp 16; Temp 98; Pulse Ox 97% ; db 16:00 BP 111 / 72; Pulse 73; Resp 16; Pulse Ox 96% on R/A; db 10:50 Body Mass Index 23.67 (74.84 kg, 177.8 cm) db 10:50 Pain Scale: Adult db NIH Stroke Scale Scores: 11:23 NIHSS Score: 0 db [place] Coma Score: 11:23 Eye Response: spontaneous(4). Motor Response: obeys commands(6). Verbal Response: db oriented(5). Total: 15. MDM: 10:54 Patient medically screened. ec2 10:57 Data reviewed: vital signs. ED course: Patient arrives today for evaluation of possible ec2 seizure-like activity. Examination remarkable for neuro intact individual is otherwise in no acute distress with a reassuring examination. Will obtain lab work, CT imaging, EKG, chest x-ray. Evaluating for ACS, electrolyte disturbances, arrhythmia, intracranial mass.. 11:14 ED course: EKG independently reviewed and interpreted by me, shows normal sinus rhythm, ec2 rate of 59, no acute ST segment elevations, intervals are nonconcerning.. 11:52 ED course: CBC shows anemia, lab called, states concern for possible invalid specimen, ec2 will resend CBC. Urine study is noninfectious appearing. Chest x-ray shows no acute intrathoracic process, CT scan of the head shows no acute intracranial process. Will resend CBC. . 13:44 ED course: Metabolic profile shows slight hyponatremia with a sodium of 129. Troponin ec2 is slightly elevated at 84.8. LFTs are unremarkable. Will obtain repeat EKG and troponin as well. . 13:44 ED course: Regardless patient is slightly hyponatremic, had a syncopal episode and has ec2 elevated troponin, will admit for further care. . 13:51 ED course: I did recommend inpatient hospitalization, patient was hesitant about this ec2 and asking for discharge home, I was able to discussed obtaining repeat EKG and troponin and she was agreeable to this. . 13:56 ED course: Repeat EKG independently reviewed and interpreted by me, shows normal sinus ec2 rhythm, rate of 65, no acute ST segment elevations, intervals are nonconcerning. When compared to initial EKG on arrival, appears unchanged. 14:34 ED course: The patient with troponin with a delta of 12. Updated the patient regarding ec2 the results and again strongly recommended admission to the hospital and at this point she was agreeable. Will admit for further management.. 01/03 10:55 Order name: Basic Metabolic Panel; Complete Time: 13:43 ec2 01/03 10:55 Order name: CBC with Diff; Complete Time: 13:25 ec2 01/03 10:55 Order name: Troponin HS; Complete Time: 13:43 ec2 01/03 10:55 Order name: LFT's; Complete Time: 13:43 ec2 01/03 10:55 Order name: UAM; Complete Time: 11:52 ec2 01/03 13:44 Order name: Troponin High Sensitivity; Complete Time: 14:32 ec2 01/03 10:55 Order name: XRAY Chest (1 view); Complete Time: 11:52 ec2 01/03 10:55 Order name: CT Head Brain wo Cont; Complete Time: 11:52 ec2 01/03 10:55 Order name: Cardiac monitoring; Complete Time: 11:18 ec2 01/03 10:55 Order name: EKG - Nurse/Tech; Complete Time: 11:18 ec2 01/03 10:55 Order name: IV Saline Lock; Complete Time: 11:18 ec2 01/03 10:55 Order name: Labs collected and sent; Complete Time: 11:18 ec2 01/03 10:55 Order name: O2 Per Protocol; Complete Time: 11:25 ec2 01/03 10:55 Order name: O2 Sat Monitoring; Complete Time: 11:18 ec2 01/03 11:52 Order name: Labs - recollect needed: recollect all tubes; Complete Time: 12:11 bd 01/03 12:46 Order name: Labs - recollect needed: recollect green and lavender top; Complete Time: bd 12:57 01/03 13:44 Order name: EKG - Nurse/Tech; Complete Time: 13:59 ec2 01/03 13:44 Order name: Misc. Order: repeat ekg/trop; Complete Time: 13:59 ec2 Administered Medications: 11:10 Drug: NS 0.9% IV 1000 ml IV at 1 bolus Per protocol; 1000 mL bolus Route: IV; Rate: 1 db bolus; Site: right wrist; 16:43 Follow up: Response: No adverse reaction; IV Status: Completed infusion; IV Intake: db 1000ml 14:40 Drug: Aspirin PO Chewable Tablet 324 mg PO once; 81 mg tablets x 4 Route: PO; rs5 16:43 Follow up: Response: No adverse reaction db 14:40 Drug: Enoxaparin Sub-Q 1 mg/kg Sub-Q once Route: Sub-Q; Site: left lower abdomen; rs5 16:42 Follow up: Response: No adverse reaction db Disposition Summary: 01/04/24 14:36 Hospitalization Ordered Notes: Hospitalization Status: Inpatient Admission ec2 Provider: Lorenzo Parry ec2 Location: Telemetry/MedSurg (Inpatient) ec2 Condition: Stable ec2 Problem: new ec2 Symptoms: are unchanged ec2 Bed/Room Type: Standard ec2 Room Assignment: 211(01/04/24 15:40) bd Diagnosis - Subsequent non-ST elevation (NSTEMI) myocardial infarction ec2 - Syncope Near ec2 Discharge Instructions: - Discharge Summary Sheet ec2 - Syncope, [id number] ec2 Forms: - Medication Reconciliation Form ec2 - SBAR form ec2 - Leadership Thank You Letter ec2 NIH Stroke Scale - NIH Stroke Score Date: 01/04/2024 Time: 11:23 Total Score = 0 10. Dysarthria (speech clarity - read or repeat words) - 0(Normal) 11. Extinction and Inattention (visual/tactile/auditory/spatial/personal) - 0(No abnormality) 1a. Level of Consciousness (LOC) - 0(Alert) 1b. Level of Consciousness (LOC) (Month \T\ Age) - 0(Both) 1c. LOC Commands (Open \T\ Closes Eyes/Machinist Apprentice Wood) - 0(Both) 2. Best Gaze (Lateral Gaze Paresis) - 0(Normal) 3. Visual Field Loss - 0(No visual loss) 4. Facial Palsy - 0(Normal) 5a. Left Arm: Motor (10-second hold) - 0(No drift) 5b. Right Arm: Motor (10-second hold) - 0(No drift) 6a. Left Leg: Motor (5-second hold - always test supine) - 0(No drift) 6b. Right Leg: Motor (5-second hold - always test supine) - 0(No drift) 7. Limb Ataxia (finger/nose \T\ heel/dill - test with eyes open) - 0(Absent) 8. Sensory Loss (pinprick arms/legs/face) - 0(Normal) 9. Best Language: Aphasia (description/naming/reading) - 0(No aphasia) Initials: db Signatures: Dispatcher [employer] EDMS Brittany Brito bd Michael Veras, JAVA USER INTERFACE DEVELOPER-C JAVA USER INTERFACE DEVELOPER-Cla1 Sarina Ferrera, RN RN db Kaiden Roberson RN RN rs5 Damon Fair MD MD ec2 Corrections: (The following items were deleted from the chart) 10:56 10:56 Chest Single View+RAD.RAD.BRZ ordered. EDMS EDMS 10:56 10:56 Head Brain Wo Cont+CT.RAD.BRZ ordered. EDMS EDMS 13:50 11:53 TYPE AND SCREEN+BB.LAB.BRZ ordered. EDMS EDMS 15:40 14:36 ec2 bd
[2024-01-04] MEDS ORDERED: ENOXAPARIN 80 MG/0.8 ML SQ ONE (14:39)
[2024-01-04] MEDS ORDERED: ASPIRIN 81 MG CHEWABLE TABLET ONE (14:40)
--- NOTE | 2024-01-04 16:40 | P.HP ---
Certification for Inpatient Patient admitted to: Observation With expected LOS: <2 Midnights Patient will require the following post-hospital care: None Practitioner: I am a practitioner with admitting privileges, knowledge of patient current condition, hospital course, and medical plan of care. Services: Services provided to patient in accordance with Admission requirements found in Title 42 Section 412.3 of the Code of Federal Regulations Patient History Date of Service: 01/04/24 History of Present Illness: 68-year-old female with history of GERD, hypertension, hypothyroidism, thoracic aortic aneurysm presents to the emergency department chief point of syncope. 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 This is the third time she has had a similar episode all from a seated position the last time was about 6 months ago. She was evaluated in the emergency department her initial high-sensitivity troponin was 84.8, repeat troponin was 96.7. During her visit from 06/06/2023 she had a heart catheterization performed which showed aneurysmal coronary arteries but no CAD. Her last CTA of her chest was in August of this year and showed stable thoracic aortic aneurysm at 4.7 cm. She denies any chest pain at this time. Her only symptoms prior to her syncopal episode is mild dizziness for a few seconds. She denies palpitations prior to syncopal episodes although she does report nearly daily she has episodes lasting 5 to 10 minutes where it feels like her heart is "beating out of her chest". ED provider wishes to admit patient under observation for syncope, elevated troponin Allergies nickel Allergy (Verified 07/14/23 10:53) Rash Penicillins Allergy (Verified 07/14/23 10:53) unknown SURGICAL TAPE Adverse Reaction (Uncoded 07/14/23 10:53) REDNESS, SKIN TEAR Home Medications: Amlodipine [Norvasc*] 5 mg PO BEDTIME 06/04/23 Levothyroxine [Synthroid*] 75 mcg PO DAILY 06/04/23 Losartan/Hydrochlorothiazide [Losartan-Hctz 100-25 mg Tab] 1 tab PO DAILY 06/04/23 Metoprolol Tartrate [Lopressor] 100 mg PO BID 06/04/23 Prolia 60 mg IM SEECOM 06/04/23 - Past Medical/Surgical History Diabetic: No -: hypothyroidism -: htn -: gerd -: ascending thoracic aorta aneurysm -: Hysterectomy -: Left femur fracture Psychosocial/ Personal History: 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, 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 with her - Family History Father -: Cancer Mother -: Cancer - Social History Smoking Status: Never smoker Alcohol use: Yes CD- Drugs: No Caffeine use: Yes Place of Residence: Home Review of Systems 10-point ROS is otherwise unremarkable Cardiovascular: Other (syncope) Physical Examination - Physical Exam General: Alert, In no apparent distress, Oriented x3 HEENT: Atraumatic, PERRLA Neck: Supple, 2+ carotid pulse no bruit, No LAD Respiratory: Clear to auscultation bilaterally, Normal air movement Cardiovascular: Regular rate/rhythm, Normal S1 S2, Systolic murmur Gastrointestinal: Normal bowel sounds Musculoskeletal: No tenderness Integumentary: No rashes Neurological: Normal gait, Normal speech, Normal strength at 5/5 x4 extr, Normal tone, Normal affect - Studies Laboratory Data (last 24 hrs) 01/04/24 01/04/24 12:55 11:16 WBC 6.80 Hgb 11.2 L Hct 33.6 L Plt Count 209 Sodium 129 L Potassium 3.6 BUN 10 Creatinine 0.82 Glucose 132 H Total Bilirubin 0.7 AST 21 ALT 17 Alkaline Phosphatase 53 Assessment and Plan - Plan Assessment: Syncope Hypertension Hypothyroidism GERD History of thoracic aortic aneurysm Plan: Syncope Syncope in seated position with loss of consciousness Denies chest pain, palpitations preceding incident Troponin mildly elevated, trend troponins and monitor on telemetry Cardiology consult and echocardiogram ordered Patient heart catheterization 05/2023 with aneurysmal coronary arteries but no CAD Last CTA of the chest was performed August of this year with stable thoracic aortic aneurysm measuring 4.7 cm Appreciate further input from cardiology Hypertension Hypothyroidism GERD Home medications continued History of thoracic aortic aneurysm Last CTA of the chest was performed August this year with stable thoracic aortic aneurysm measuring 4.7 cm Low threshold for repeat imaging if patient develops chest pain DVT PPX: Therapeutic Lovenox Code status: Full Discharge Plan: Home Plan to discharge in: 24 Hours - Advance Directives Does patient have a Living Will: No Does patient have a Durable POA for Healthcare: Yes Critical Care: No Time Spent Managing Pts Care (In Minutes): 70
[2024-01-04 17:06] VITALS: BMI 22.9
[2024-01-04] MEDS: carvediloL 25 MG TAB PO SCH (18:21)
[2024-01-04] MEDS: ENOXAPARIN 80 MG/0.8 ML SQ SCH (20:35)
[2024-01-04] MEDS: POTASSIUM CL SA 10 MEQ TAB PO ONE (20:35)
[2024-01-04] MEDS: AMLODIPINE 5 MG TAB PO SCH (20:36)
[2024-01-04 21:06] VITALS: O2SAT 97
[2024-01-05 04:16] LABS: Absolute Basophils 0.1 K/uL (0-0.5); Absolute Eosinophils 0.2 K/uL (0-0.5); Absolute Lymphocytes (CBC) 1.3 K/uL (0.7-4.9); Absolute Monocytes 0.6 K/uL (0.1-1.3); Basophils % 1.5 % (0-1.3); Eosinophils % 3.8 % (0-4.4); Hematocrit 31.3 % (36.0-45.0); Hemoglobin 10.5 g/dL (12.0-15.0); Lymphocytes % 25.8 % (15.3-44.8); MCH 28.7 pg (27.0-35.0); MCHC 33.6 g/dL (32.0-36.0); MCV 85.5 fL (80-100); MPV 9.8 fL (7.6-11.3); Monocytes % 11.4 % (3.3-12.3); Neutrophils % 57.5 % (41.7-73.7); Nucleated Red Blood Cells % 0.1 % (0-0); Platelets 180 thou/uL (152-406); RBC Red Blood Cell Count 3.66 M/uL (3.86-4.86); Red Cell Distribution Width 14.7 % (12.1-15.2)
[2024-01-05 04:31] LABS: Anion Gap 10.4 mEq/L (5.0-15.0); Potassium 3.4 mEq/L (3.5-5.1); Thyroid Stimulating Hormone 1.96 uIU/mL (0.358-3.740)
[2024-01-05 04:35] LABS: Troponin High Sensitivity 82.7 pg/mL (<58.9)
[2024-01-05] MEDS: LEVOTHYROXINE SOD 0.075 MG TAB PO SCH (05:32)
[2024-01-05] MEDS ORDERED: HOME MED 1 EA UNK (Losartan/Hydrochlorothiazide [Losartan-Hctz 100-25 Mg Tab] 1 EACH Table PO SCH (09:00)
[2024-01-05] MEDS: LOSARTAN/HCTZ 50-12.5 PO SCH (09:27)
[2024-01-05] MEDS: ASPIRIN EC 81 MG TAB PO SCH (09:28)
[2024-01-05] MEDS: POTASSIUM CL SA 10 MEQ TAB PO ONE (09:28)
--- NOTE | 2024-01-05 11:44 | P.PN ---
Date of Service: 01/05/24 Subjective: No chest pain, syncope overnight No complaints today ROS: 10 point ROS as noted above, otherwise negative Physical exam GEN: Alert, oriented, NAD HEENT: Normal conjunctiva, sclera anicteric CV: Regular rate and rhythm, no edema, systolic murmur Pulm: Nonlabored respirations on room air ABD: Soft, nontender, nondistended MSK: No joint tenderness Integumentary: No rashes Neuro: Normal speech, normal affect Vitals reviewed Assessment: Syncope Hypertension Hypothyroidism GERD History of thoracic aortic aneurysm Plan: Syncope Syncope in seated position with loss of consciousness Denies chest pain, palpitations preceding incident Troponin mildly elevated, trended flat Cardiology consult and echocardiogram ordered Patient heart catheterization 05/2023 with aneurysmal coronary arteries but no CAD Last CTA of the chest was performed August of this year with stable thoracic aortic aneurysm measuring 4.7 cm Appreciate further input from cardiology Hypertension Hypothyroidism GERD Home medications continued History of thoracic aortic aneurysm Last CTA of the chest was performed August of this year with stable thoracic aortic aneurysm measuring 4.7 cm Low threshold for repeat imaging if patient develops chest pain DVT PPX: Therapeutic Lovenox Code status: Full Discharge Plan: Home Plan to discharge in: 24 Hours Time Spent Managing Pts Care (In Minutes): 35
--- NOTE | 2024-01-05 11:49 | P.CNS ---
Date of Consult: 01/05/24 Chief Complaint: Syncope History of Present Illness: Patient with PMH of HTN, HLD, Thoracic aorta aneurysm presented with syncopal event while she was sitting at the bank, she can not recall what happened exactly but mention that this is not the first time that she will have those ev ents, she associate that with some palpitations but no chest pain, no SOB, patient alsmot feel like this daily after she take her BP medications. Allergies nickel Allergy (Verified 07/14/23 10:53) Rash Penicillins Allergy (Verified 07/14/23 10:53) unknown SURGICAL TAPE Adverse Reaction (Uncoded 07/14/23 10:53) REDNESS, SKIN TEAR Home Medications: Amlodipine [Norvasc*] 5 mg PO BEDTIME 06/04/23 Levothyroxine [Synthroid*] 75 mcg PO DAILY 06/04/23 Losartan/Hydrochlorothiazide [Losartan-Hctz 100-25 mg Tab] 1 tab PO DAILY 06/04/23 Prolia 60 mg IM SEECOM 06/04/23 Carvedilol [Coreg] 1 tab PO BID 01/04/24 - Past Medical/Surgical History Diabetic: No -: hypothyroidism -: htn -: gerd -: ascending thoracic aorta aneurysm -: Hysterectomy -: Left femur fracture Psychosocial/ Personal History: 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, 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 with her - Family History Father Medical History: Cancer Mother Medical History: Cancer - Social History Alcohol use: Yes CD- Drugs: No Caffeine use: Yes Place of Residence: Home Review of Systems 10-point ROS is otherwise unremarkable Physical Examination Temp Pulse Resp BP Pulse Ox 98.5 F 57 14 135/71 95 01/05/24 08:00 01/05/24 09:27 01/05/24 08:00 01/05/24 09:27 01/05/24 08:00 General: Alert, Oriented x3 HEENT: Atraumatic Neck: Supple Respiratory: Clear to auscultation bilaterally Cardiovascular: No edema, Normal S1 S2 Gastrointestinal: Normal bowel sounds Laboratory Data (last 24 hrs) 01/04/24 01/04/24 12:55 11:16 WBC 6.80 Hgb 11.2 L Hct 33.6 L Plt Count 209 Sodium 129 L Potassium 3.6 BUN 10 Creatinine 0.82 Glucose 132 H Total Bilirubin 0.7 AST 21 ALT 17 Alkaline Phosphatase 53 - Problems (1) Syncope Current Visit: Yes Status: Acute Plan: unclear etiology at this point, patient mention having palpitations, patient had a recent coronary angiogram that was normal patient EKG and telemetry is normal will schedule patient for 14 days event monitor through our office and follow up after that. (2) Thoracic aortic aneurysm Current Visit: Yes Status: Acute Plan: last CTA shows that is is measuring 4.7 cm in diameter. continue to monitor and establish care with vascular surgery. (3) HTN (hypertension) Current Visit: Yes Status: Acute Plan: advised patient to keep log of BP and bring to clinic D/C Norvasc Continue Coreg and losartan/HCTZ.
[2024-01-05 12:16] VITALS: BP 152/76; TEMP 97.5
--- NOTE | 2024-01-05 13:08 | EKG ---
Test Date: 2024-01-04 Test Time: 13:53:10 System Support Administrator: MARC MEASUREMENT RESULTS: Intervals: Rate: 65 ID: [id number] QRSD: 116 QT: 460 QTc: 478 [place]: P: 13 ID: [id number] QRS: 42 T: 269 INTERPRETIVE STATEMENTS: Normal sinus rhythm Right bundle branch block T wave abnormality, consider inferolateral ischemia Abnormal ECG Compared to ECG 01/04/2024 11:11:19 Right bundle-branch block now present T-wave abnormality now present Sinus bradycardia no longer present ST (T wave) deviation no longer present Prolonged QT interval no longer present Possible ischemia still present Electronically Signed On 01-05-24 13:06:57 CDT by Jorge Hernández
--- NOTE | 2024-01-05 13:33 | ECHO ---
HEIGHT: 5 ft 10 in WEIGHT: 160 lb 0 oz DATE OF STUDY: 01/05/[address]: Michael Veras NP 2-DIMENSIONAL: YES M.MODE: YES DOPPLER: YES COLOR FLOW: YES TDS: PORTABLE: YES DEFINITY: BUBBLE STUDY: DIAGNOSIS: SYNCOPE, ELEVATED TROPONIN, MURMUR CARDIAC HISTORY: CATHERIZATION: NO SURGERY: NO PROSTHETIC VALVE: NO PACEMAKER: NO MEASUREMENTS (cm) DIASTOLIC (NORMALS) SYSTOLIC (NORMALS) IVSd 1.2 (0.6-1.2) LA Diam 3.1 (1.9-4.0) LVEF 52% LVIDd 4.0 (3.5-5.7) LVIDs 3.0 (2.0-3.5) %FS 26% LVPWd 1.3 (0.6-1.2) Ao Diam 3.2 (2.0-3.7) 2 DIMENSIONAL ASSESSMENT: RIGHT ATRIUM: NORMAL LEFT ATRIUM: NORMAL RIGHT VENTRICLE: NORMAL LEFT VENTRICLE: NORMAL TRICUSPID VALVE: NORMAL MITRAL VALVE: NORMAL PULMONIC VALVE: NORMAL AORTIC VALVE: MILD AORTIC REGURGITATION PERICARDIAL EFFUSION: NONE AORTIC ROOT: NORMAL LEFT VENTRICULAR WALL MOTION: NORMAL DOPPLER/COLOR FLOW: NORMAL COMMENTS: 1. NORMAL LEFT VENTRICULAR SYSTOLIC FUNCTION, EJECTION FRACTION 60%, NORMAL WALL MOTION 2. NORMAL DIASTOLIC FUNCTION 3. MILD AORTIC REGURGITATION TECHNOLOGIST: NATALI KANG
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
== END 2024-01-05 14:45 | disposition home or self-care (01) ==
LOC: ER 10:52 → ERHOLD 15:24 → 2ND 16:07
PROVIDERS: ADMIT Hospitalist; ATTEND Hospitalist
DX: R55 Syncope and collapse (principal); I10 Essential (primary) hypertension; K21.9 Gastro-esophageal reflux disease without esophagitis; E03.9 Hypothyroidism, unspecified; I71.20 Thoracic aortic aneurysm, without rupture, unspecified; Z88.0 Allergy status to penicillin; Z88.8 Allergy status to other drugs, medicaments and biological substances
CPT/HCPCS: 96361; 93005 ×2; 93306; 85025 ×2; 81001; 80048 ×2; 36415; 83735; 80076; 84443; 84484 ×4; 84439; 70450; 71045; 96360; 96372; 99285; J7030; G0378 ×3

== ENCOUNTER 2024-06-22 10:24 | Emergency (ER) | payer OTHER ==
[2024-06-22 11:23] LABS: Absolute Basophils 0.1 K/uL (0-0.5); Absolute Eosinophils 0.2 K/uL (0-0.5); Absolute Monocytes 0.5 K/uL (0.1-1.3); Absolute Neutrophil 2.3 K/uL (1.8-8.0); Basophils % 1.5 % (0-1.3); Eosinophils % 4.5 % (0-4.4); Hematocrit 35.1 % (36.0-45.0); Hemoglobin 11.3 g/dL (12.0-15.0); Lymphocytes % 25.3 % (15.3-44.8); MCH 27.4 pg (27.0-35.0); MCHC 32.3 g/dL (32.0-36.0); MCV 84.7 fL (80-100); MPV 8.4 fL (7.6-11.3); Monocytes % 12.5 % (3.3-12.3); Neutrophils % 56.2 % (41.7-73.7); Platelets 184 thou/uL (152-406); RBC Red Blood Cell Count 4.14 M/uL (3.86-4.86); Red Cell Distribution Width 19.9 % (12.1-15.2)
[2024-06-22 11:27] LABS: Protime INR 0.98
--- NOTE | 2024-06-22 11:47 | RAD REPORT ---
EXAMINATION: ONE VIEW CHEST XR CLINICAL INDICATION: syncope TECHNIQUE: Frontal chest projection is submitted. Examination is limited by patient positioning and t echnique. COMPARISON: 01/04/2024 FINDINGS: Emphysematous lung mustafa are noted. The heart is moderately enlarged in size. Left clavicular hardwa re noted. Sternotomy wires are seen. Stimulator device medial right lower lung. IMPRESSION: No acute intrathoracic abnormalities.
[2024-06-22] MEDS ORDERED: ASPIRIN 81 MG CHEWABLE TABLET ONE (12:06)
[2024-06-22 12:22] LABS: Anisocytosis 1+; Blood Morphology Comment NOTED (NOT SEEN); Platelet Estimate ADEQ; White Blood Cell Scan OK (OK)
--- NOTE | 2024-06-22 12:41 | RAD REPORT ---
EXAM: CT brain without contrast HISTORY: Syncope;Trauma COMPARISON: 01/07/2021 TECHNIQUE: Multiple contiguous axial images were obtained and a CT of the brain without contrast. Sag ittal and coronal reformats were performed. One or more of the following dose reduction techniques were used: Automated exposure control, adjust ment of the mA and/or kV according to patient size, and/or iterative reconstruction. FINDINGS: No evidence of hydrocephalus, intracranial hemorrhage, or extra-axial fluid collection. The brain is normal in morphology. No evidence of midline shift or areas of brain edema. The calvarium is intact. The visualized paranasal sinuses and mastoid air cells are essentially clear . IMPRESSION: No evidence of acute intracranial abnormality. EXAM: CT of the cervical spine without contrast HISTORY: Neck pain, injury Syncope;Trauma TECHNIQUE: Multiple contiguous axial images were obtained in a CT of the cervical spine without contr ast. Sagittal and coronal reformats were performed. FINDINGS: The vertebral bodies demonstrate normal height and alignment. No evidence of acute fracture or subluxation.. Moderate mid and lower cervical degenerative changes. No prevertebral soft tissue swelling is seen. The posterior facets are well aligned. Normal alignment of the skull base with the cervical spine is seen. The lung apices are unremarkable. IMPRESSION: No evidence of acute osseous abnormality of the cervical spine.
--- NOTE | 2024-06-22 12:55 | RAD REPORT ---
EXAM: CT CHEST, ABDOMEN AND PELVIS WITH CONTRAST CLINICAL INDICATION: SYNCOPE, TRAUMA TECHNIQUE: CT chest, abdomen and pelvis was performed, following the administration of contrast, as p er department protocol. Axial, sagittal and coronal reconstructions were obtained. One or more of the following dose reduction techniques were used: Automated exposure control, adjustment of the mA a nd/or kV according to patient size, and/or iterative reconstruction. Unless otherwise specified, incidental findings do not require dedicated imaging follow-up. COMPARISON: 02/21/2024 FINDINGS: LUNGS: 8 mm nodule is identified in the posterior right upper lobe, new since 02/21/2024 prior study. PLEURA: No pleural effusion. No pneumothorax. MEDIASTINUM AND LYMPH NODES: No mediastinal mass or fluid collection. Normal size mediastinal, hilar, and axillary lymph nodes. Postsurgical changes seen at the root of the aorta. OSSEOUS STRUCTURES AND CHEST WALL: Prior sternotomy noted. Chronic compression fracture mid thoracic level with sclerosis is unchanged. LIVER: Several small low-density lesions are identified in the left lobe of the liver, nonspecific. N o new liver lesions seen. Grossly unremarkable gallbladder. PANCREAS: No mass, ductal dilation, or rae-pancreatic fluid. SPLEEN: Normal size. No focal lesion. ADRENALS: 2.7 cm left adrenal mass, unchanged. KIDNEYS: Normal size and contour. No hydronephrosis. URINARY BLADDER: Normal contour. GASTROINTESTINAL TRACT: No bowel obstruction, free air, significant free fluid or abscess. Moderate stool in the rectosigmoid colon. APPENDIX: Appendix not visualized, but no inflammatory changes in region of appendix. LYMPH NODES: No lymphadenopathy. MUSCULOSKELETAL: No acute fracture suspected. OTHER: Moderate aortoiliac atherosclerosis. IMPRESSION: No acute abnormalities seen in the chest, abdomen or pelvis. New 8 mm nodule posterior right upper lobe. 2017 Fleischner Society Recommendations for Lung Nodule(s): Follow-Up based on size (average of long- and short-axis diameters). Use most suspicious nodule for followup. Single Part Solid lung nodule 6 to 15 mm: Recommend a non-contrast chest CT at 3-6 months to confirm persistence. If unchanged and the solid component remains < 6 mm, an annual non-contrast chest CT should be performed for 5 years. If the solid component is 6 - 8 mm on follow-up, recommend biopsy o r resection. If the solid component is > 8 mm on follow-up, recommend PET/CT, biopsy or resection. These guidelines do not apply to patients younger than 35 years, immunocompromised patients, and mauro ents with cancer. F/u in patients with significant comorbidities as clinically warranted. For lung cancer screening, adhere to Lung-RADS guidelines. Reference: Radiology. 2017 Feb; 284(1):228-243
[2024-06-22] MEDS ORDERED: ENOXAPARIN 80 MG/0.8 ML SQ ONE (13:28)
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
[2024-06-22 21:31] VITALS: TEMP 98
[2024-06-22 21:36] VITALS: BP 145/68; O2SAT 98
--- NOTE | 2024-06-23 14:15 | EKG ---
Test Date: 2024-06-22 Test Time: 11:02:57 Reference And Instruction Librarian: MARC MEASUREMENT RESULTS: Intervals: Rate: 58 ND: 182 QRSD: 112 QT: 492 QTc: 482 [place]: P: 73 ND: 182 QRS: 57 T: 231 INTERPRETIVE STATEMENTS: Sinus bradycardia ST & T wave abnormality, consider inferolateral ischemia Prolonged QT Abnormal ECG Compared to ECG 01/04/2024 13:53:10 ST (T wave) deviation now present Prolonged QT interval now present Sinus rhythm no longer present Right bundle-branch block no longer present T-wave abnormality no longer present Possible ischemia still present Electronically Signed On 06-23-24 14:12:43 CDT by Kaiden Collins
== END 2024-06-22 17:00 | disposition short-term general hospital (02) ==
LOC: ER 10:24
DX: I21.4 Non-ST elevation (NSTEMI) myocardial infarction (principal); S00.512A Abrasion of oral cavity, initial encounter; R79.89 Other specified abnormal findings of blood chemistry; I10 Essential (primary) hypertension; V48.5XXA Car driver injured in noncollision transport accident in traffic accident, initial encounter
CPT/HCPCS: 93005; 85025; 36415; 85610; 85730; 70450; 72125; 71260; 74177; 71045; 96372; 99284; Q9967